=== PATIENT | female | born 1935 | race Caucasian/White ===

== ENCOUNTER 2017-01-05 11:09 | Outpatient (CLI) ==
--- NOTE | 2017-01-05 12:17 | CT ---
EXAM: CT head without contrast. HISTORY: Initial presentation for head trauma due to a fall. Right forehead hematoma. COMPARISON: None available. TECHNIQUE: Multiple axial images of the brain were obtained from the skull base through the vertex without intravenous contrast. FINDINGS: Right parietal approach ventriculoperitoneal shunt catheter tip is located near the pres[place] en of [place]. The lateral ventricles are dilated in proportion to the degree of cortical sulcal enla rgement. No acute intracranial hemorrhage or extraaxial collection identified. Encephalomalacia se en in the right basal ganglia. Periventricular and subcortical white matter low attenuation seen th roughout both cerebral hemispheres. No mass effect or midline shift identified. Basal cisterns wel l visualized. Atherosclerotic calcifications are present. Right frontal scalp hematoma noted. No calvarial fractures seen. Paranasal sinuses and mastoid air cells are clear. IMPRESSION: 1. Right frontal scalp hematoma without acute intracranial abnormality. 2. Chronic small vessel ischemic changes and atrophy. 3. Right parietal ventriculoperitoneal shunt catheter without hydrocephalous.
== END 2017-01-05 11:10 | disposition home or self-care (01) ==
LOC: RAD 11:09
PROVIDERS: ATTEND Emergency Medicine
DX: S00.83XA Contusion of other part of head, initial encounter (principal); W19.XXXA Unspecified fall, initial encounter

== ENCOUNTER 2017-07-21 08:53 | Outpatient (CLI) | END 2017-07-21 08:54 | disposition home or self-care (01) | LOC: NONPT 08:53 | PROVIDERS: ATTEND Emergency Medicine | DX: R05 Cough (principal); R50.9 Fever, unspecified | CPT/HCPCS: 87804 ==

== ENCOUNTER 2017-10-11 17:48 | Inpatient (IN) ==
[2017-10-11] MEDS ORDERED: TUSSIONEX PO STA (18:21)
--- NOTE | 2017-10-11 18:25 | ED.PDOC ---
General ED Provider: Dr. HOWARD KOWALSKI Chief Complaint: Cough Stated Complaint: COUGH, WEAKNESS, FLU LIKE SYMPTOMS Time Seen by Physician: 18:00 Mode of Arrival: Ambulance Information Source: Patient, EMT Exam Limitations: No limitations [facility] and Triage Documentation Reviewed and Agree: Yes Reviewed sepsis parameters & appropriate labs ordered?: Yes System Inflammatory Response Syndrome: Not Applicable Sepsis Protocol: For patient's 13 years and over: Temp is 96.8 and below OR 101 and greater Pulse >90 BPM Resp >20/minute Acutely Altered Mental Status Are patient's symptoms suggestive of a new infection, such as: -Pneumonia -Skin, Soft Tissue -Endocarditis -UTI -Bone, Joint Infection -Implantable Device -Acute Abdominal Infection -Wound Infection -Meningitis -Blood Stream Catheter Infection -Unknown System Inflammatory Response Syndrome: Not Applicable Respiratory Complaint Exam - Respiratory Complaint/Exam Onset/Duration: 7 DAYS WORSE TODAY Symptoms Are: Still present Timing: Intermittent Initial Severity: Moderate Current Severity: Moderate Location: Chest Character: Reports: Productive cough (YELLOW) Aggravating: Reports: URI Alleviating: Reports: None Associated Signs and Symptoms: Reports: URI, Nasal congestion Related History: Reports: Similar episode History of Healthcare-Acquired Pneumonia: No Related Surgical History: Reports: None Review of Systems - Review Of Systems Constitutional: Reports: Chills, Malaise, Weakness, Loss of appetite Eyes: Reports: No symptoms Ears, Nose, Mouth, Throat: Reports: No symptoms Respiratory: Reports: Cough, Short of air Cardiac: Reports: No symptoms GI: Reports: No symptoms : Reports: No symptoms Musculoskeletal: Reports: No symptoms Skin: Reports: No symptoms Neurological: Reports: No symptoms Endocrine: Reports: No symptoms Hematologic/Lymphatic: Reports: No symptoms All Other Systems: Reviewed and Negative Past Medical History - Past Medical History Previously Healthy: Yes Endocrine: Reports: None Cardiovascular: Reports: CAD, Hypertension, CHF Respiratory: Reports: None Hematological: Reports: None Gastrointestinal: Reports: GERD Genitourinary: Reports: CKD 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) Musculoskeletal: Reports: None Cancer: Reports: None Last Menstrual Period: na - Surgical History General Surgical History: Reports: Unknown - Family History Family History: Reports: Unknown - Social History Smoking Status: Former smoker Hx Substance Use: No Alcohol Screening: None Physical Exam - Physical Exam Appearance: Ill-appearing Ill-appearing: Mild Pain Distress: Mild Eyes: DOROTHY, EOMI, Conjunctiva clear ENT: Dry mucosa Respiratory: Breath sounds diminished, Rhonchi Cardiovascular: RRR, Pulses normal, No rub, No murmur GI/: Soft, Nontender, No masses, Bowel sounds normal, No Organomegaly Musculoskeletal: Normal strength, ROM intact, No edema, No calf tenderness Skin: Warm, Dry, Normal color Neurological: Sensation intact, Motor intact, Reflexes intact, Cranial nerves intact, Alert, Oriented Psychiatric: Affect appropriate, Mood appropriate Physician Notification - Case Discussed Physician Notified: PMD Time of Notification: 19:00 Admit To: Inpatient Critical Care Note - Critical Care Note Total Time (mins): 0 Course - Course Orders, Labs, Meds: Orders Category Date Time Status ADMIT PATIENT [facility]PAT[facility] ADMISSION 10/11/17 18: 21 Active EKG-(IP & OP ONLY) DAILY CARDIO 10/12/17 06:00 Ordered EKG-(IP & OP ONLY) DAILY CARDIO 10/13/17 06:00 Ordered EKG-(IP & OP ONLY) DAILY CARDIO 10/14/17 06:00 Ordered NEBULIZER TREATMENT Routine CARDIO 10/11/17 18:21 Ordered ACTIVITY .Complete BR CARE 10/11/17 18:20 Ordered BLOOD GLUCOSE MONITORING ACCUCHECK Q6H CARE 10/11/17 18:20 Ordered NPO REMINDER: IMAGING ONCE CARE 10/11/17 18:13 Active TELEMETRY MONITORING TELE CARE 10/11/17 18:22 Active VITAL SIGNS Q8HR CARE 10/11/17 18:20 Ordered REGULAR DIET DIETARY 10/11/17 Dinner Ordered ED IV/MEDIPORT/POWERPORT .ONCE EMERGENCY 10/11/17 18:12 Active BLOOD CULTURE Stat LAB 10/11/17 18:11 Ordered CBC W/ AUTO DIFF DAILY@0600 LAB 10/12/17 06:00 Ordered CBC W/ AUTO DIFF DAILY@0600 LAB 10/13/17 06:00 Ordered CBC W/ AUTO DIFF Stat LAB 10/11/17 18:11 Ordered COMPREHENSIVE METABOLIC PANEL DAILY@0600 LAB 10/12/17 06:00 Ordered COMPREHENSIVE METABOLIC PANEL DAILY@0600 LAB 10/13/17 06:00 Ordered COMPREHENSIVE METABOLIC PANEL Stat LAB 10/11/17 18:11 Ordered FLU A/B MOLECULAR Stat LAB 10/11/17 18:22 Uncollected PROCALCITONIN Stat LAB 10/11/17 Ordered RAPID STREP SCREEN [MOLECULAR GROUP A STREP] Stat LAB 10/11/17 18:22 Uncollected 0.9 % Sodium Chloride [Saline Flush] MEDS 10/11/17 18:12 Ordered 1 syr IVF PRN PRN Ceftriaxone Sodium [Rocephin] 1 gm MEDS 10/11/17 18:30 Ordered 0.9 % Sodium Chloride [Sodium Chloride] 50 ml IV DAILY Hydrocodone/Chlorphen Polis [Tussionex] MEDS 10/11/17 18:21 Stat 5 ml PO ONCE STA Ipratropium/Albuterol Neb [Duoneb] MEDS 10/12/17 00:00 Ordered 1 vial NEB RTQ6H Methylprednisolone Sod Succ/Pf [Solu-Medrol 40 mg] MEDS 10/11/17 18:30 Ordered 40 mg IVP Q12HR Sodium Chloride 0.9% [Sodium Chloride] 1,000 ml MEDS 10/11/17 18:30 Ordered IV 75 mls/hr CT CHEST W/O CONTRAST Stat RADS 10/11/17 18:11 Ordered Medications Generic Name Dose Route Start Last Admin Trade Name Freq PRN Reason Stop Dose Admin Albuterol/Ipratropium 1 vial 10/12/17 00:00 Duoneb NEB RTQ6H RHODA Ceftriaxone Sodium 1 gm/ 50 mls @ 75 mls/hr 10/11/17 18:30 Sodium Chloride IV DAILY RHODA Sodium Chloride 1,000 mls @ 75 mls/hr 10/11/17 18:30 Sodium Chloride IV .[id number] RHODA Methylprednisolone Sodium Succinate 40 mg 10/11/17 18:30 Solu-Medrol 40 Mg IVP Q12HR RHODA Sodium Chloride 1 syr 10/11/17 18:12 Saline Flush IVF PRN PRN To flush IV Discontinued Medications Generic Name Dose Route Start Last Admin Trade Name Freq PRN Reason Stop Dose Admin Chlorphenir/Hydrocodone Polistirex 5 ml 10/11/17 18:21 Tussionex PO 10/11/17 18:22 ONCE STA Vital Signs: Temp Pulse Resp BP Pulse Ox 10/11/17 17:48 97.5 F L 80 20 174/70 H 97 Departure - Departure Time of Disposition: 19:00 Disposition: ADMITTED INPATIENT Discharge Problem: Cough, Weakness COPD (chronic obstructive pulmonary disease) Qualifiers: COPD type: unspecified COPD Qualified Code(s): J44.9 - Chronic obstructive pulmonary disease, unspecified Instructions: Dyspnea (ED), Shortness of Breath (ED) Condition: Good Pt referred to PMD for follow-up: Yes (ADMITT) IPMP verified?: No Additional Instructions: Please call your Family Physician as soon as possible to schedule a follow-up appointment. Allergies/Adverse Reactions: Allergies lactose Adverse Reaction (Verified 10/11/17 17:57) Penicillins Adverse Reaction (Verified 10/11/17 17:57) warfarin [From Coumadin] Adverse Reaction (Verified 10/11/17 17:57) Disposition Discussed With: Patient
[2017-10-11] MEDS: SODIUM CHLORIDE 1,000 ML IV SCH (18:44)
--- NOTE | 2017-10-11 19:19 | CT ---
Exam: CT scan of the thorax without contrast. Date: 10/11/2017. Comparison: None. HISTORY: Cough. TECHNIQUE: Helical scan of the thorax was performed without contrast. FINDINGS: A pacemaker is implanted in the soft tissues over the left thorax. A substernal goiter is present. The axillary regions are normal. There are multiple subcentimeter lymph nodes at 1.2 cm p recarinal lymph node with granulomatous calcifications present. The caliber of the thoracic aorta an d cardiac chambers are normal. There is a moderate to large hiatal hernia with approximately half th e stomach in the lower thorax. The spleen and upper liver have a uniform attenuation. A cholecystec joshua is noted. The pancreas and adrenal glands are normal. The kidneys are normal. Multilevel degenerative changes are present in the thoracic spine. No lytic or blastic lesions or di splaced rib fractures are seen. Evaluation at lung window settings demonstrates granulomatous calcifications. No suspicious pulmonary nodules are seen. There is peribronchial thickening with thickened septa in the lingular segment. No focal consolidation is present. No pleural fluid is seen. Tracheobronchial tree is present. Impression: There is peribronchial thickening with thickened septa in the lingular segment which may represent bronchitis with possible developing pneumonia. Old granulomatous disease. Cardiomegaly with vent trachea pacemaker. Moderate to large hiatal hernia, with approximately half the stomach in the lower thorax. Substernal goiter. Cholecystectomy.
[2017-10-11] MEDS ORDERED: SOLU-MEDROL 40 MG IVP STA (19:21)
[2017-10-11] MEDS ORDERED: ROCEPHIN 1 GM in SODIUM CHLORIDE 50 ML IV STA (19:22)
[2017-10-11] MEDS ORDERED: ROCEPHIN ONE (19:26)
[2017-10-11] MEDS: ROCEPHIN 1 GM in SODIUM CHLORIDE 50 ML IV SCH (20:38)
[2017-10-11] MEDS: SOLU-MEDROL 40 MG IVP SCH ×2 (20:38→22:19)
[2017-10-11 21:07] VITALS: BMI 32.4
[2017-10-11] MEDS ORDERED: TYLENOL PO SCH (22:30)
[2017-10-11] MEDS ORDERED: DULCOLAX RC PRN (22:32)
[2017-10-11] MEDS ORDERED: CAFFEINE PO PRN ×2 (22:32→22:42)
[2017-10-11] MEDS ORDERED: BUTALB PO PRN (22:32)
[2017-10-11] MEDS ORDERED: ACETAMINOPHEN PO PRN (22:32)
[2017-10-11] MEDS ORDERED: SODIUM PHOSPHATE MONO DIBASIC RC PRN (22:42)
[2017-10-11] MEDS ORDERED: BUTALBITAL PO PRN (22:42)
[2017-10-11] MEDS ORDERED: [UNRECOGNIZED DRUG - OTHER] PO PRN (22:42)
[2017-10-11] MEDS ORDERED: NON-FORMULARY MEDICATION (Loperamide Hcl [Loperamide] 2 MG) PO PRN (22:42)
[2017-10-11] MEDS ORDERED: ASPIRIN PO PRN (22:42)
[2017-10-11] MEDS ORDERED: ANTIVERT PO PRN (22:42)
[2017-10-12] MEDS: DUONEB NEB SCH ×5 (00:05→22:28)
[2017-10-12] MEDS ORDERED: TYLENOL PO PRN (00:48)
[2017-10-12] MEDS: CARAFATE PO SCH ×4 (05:33→21:03)
[2017-10-12] MEDS ORDERED: IMODIUM PO PRN (07:53)
[2017-10-12] MEDS ORDERED: NON-FORMULARY MEDICATION (Hydralazine Hcl [Hydralazine Hcl] 25 MG) PO SCH (09:00)
[2017-10-12] MEDS ORDERED: SOTALOL HCL 120 MG PO SCH (09:00)
[2017-10-12] MEDS ORDERED: NON-FORMULARY MEDICATION (Bumetanide [Bumetanide] 2 MG) PO SCH (09:00)
[2017-10-12] MEDS ORDERED: NON-FORMULARY MEDICATION (Citalopram Hydrobromide [Celexa] 10 MG) PO SCH (09:00)
[2017-10-12] MEDS ORDERED: DILTIAZEM HCL 180 MG PO SCH (09:00)
[2017-10-12] MEDS ORDERED: NON-FORMULARY MEDICATION (Cetirizine Hcl [Zyrtec] 10 MG) PO SCH (09:00)
[2017-10-12] MEDS ORDERED: NON-FORMULARY MEDICATION (Ferrous Sulfate [Feosol] 325 MG) PO SCH (09:00)
[2017-10-12] MEDS: ROCEPHIN 1 GM in SODIUM CHLORIDE 50 ML IV SCH (09:19)
[2017-10-12] MEDS: SORBITRATE PO SCH ×2 (09:19→15:47)
[2017-10-12] MEDS: SOLU-MEDROL 40 MG IVP SCH ×2 (09:19→21:03)
[2017-10-12] MEDS: ASPIRIN CHEWABLE PO SCH (09:19)
[2017-10-12] MEDS: BUMEX PO SCH (09:19)
[2017-10-12] MEDS: BENTYL PO SCH (09:19)
[2017-10-12] MEDS: LANOXIN PO SCH (09:20)
[2017-10-12] MEDS: CARDIZEM CD PO SCH (09:20)
[2017-10-12] MEDS: BETAPACE PO SCH ×2 (09:20→21:03)
[2017-10-12] MEDS: SODIUM CHLORIDE 1,000 ML IV SCH ×2 (09:23→17:02)
[2017-10-12] MEDS: ZYRTEC PO SCH (09:23)
[2017-10-12] MEDS: FERROUS SULFATE PO SCH (09:24)
[2017-10-12] MEDS: COZAAR PO SCH (09:24)
[2017-10-12] MEDS: APRESOLINE PO SCH ×2 (09:24→21:03)
[2017-10-12] MEDS: CELEXA PO SCH (09:24)
[2017-10-12] MEDS: CATAPRES PO SCH ×2 (09:24→21:03)
[2017-10-12] MEDS: ZYLOPRIM PO SCH ×2 (09:25→21:03)
[2017-10-12] MEDS: MILK OF MAGNESIA PO SCH (11:19)
--- NOTE | 2017-10-12 16:18 | RS.PTINEVL ---
Subjective - Patient information Date of Evaluation: 10/12/17 Date of Arrival on Unit: 10/11/17 Admitted From:: Intermediate Diagnosis: COPD, weakness Usual Living Arrangement: Intermediate Home Environment: Level/No stairs Medical History: Hypertension, COPD, CHF Medical History Comments:: GERD, hydrocephalus Surgical History Comments:: pacemaker Medications: see chart Subjective Information/ Patient Comments:: pt states that she walks with therapy at the skilled nursing. pt states that she has been walking with assist of 1 with rwx. - Level of function Current Level of Function: Partially Dependent Current Equipment Used at Home: Rolling walker, shower chair, bedside commode Interventions - Objective Patient Orientation: Person, Place Current Interventions: IV's, Oxygen, Telemetry Observation: pt has hearing aide in R ear Range of Motion - ROM Right Upper Extremity AROM: WFL's Left Upper Extremity AROM: WFL's Right Lower Extremity AROM: WFL's Left Lower Extremity AROM: WFL's Muscle Strength - Muscle Strength Right Upper Extremity Strength: Mild Weakness (shld flex 4-/5, elbow flex/ext 4/ 5,) Left Upper Extremity Strength: Mild Weakness (shld flex 4-/5, elbow flex/ext 4/5 ,) Right Lower Extremity Strength: Mild Weakness (hip flex 4-/5, knee flex/ext 4/5 , ankle Df/PF 4/5) Left Lower Extremity Strength: Mild Weakness (hip flex 4-/5, knee flex/ext 4/5, ankle Df/PF 4/5) Sensation - Sensation Right Upper Extremity Sensation: Intact/Normal Left Upper Extremity Sensation: Intact/Normal Right Lower Extremity Sensation: Intact/Normal Left Lower Extremity Sensation: Intact/Normal Palpation Palpation Findings: None/Normal Balance - Sitting Balance and Reactions Static Sitting Balance: Good Dynamic Sitting Balance: Fair Sitting Equilibrium Reactions: Delayed Left, Delayed Right Sitting Protective Reactions: Delayed Left, Delayed Right - Standing Balance and Reactions Static Standing Balance: Poor Dynamic Standing Balance: Poor Standing Equilibrium Reactions: Delayed Left, Delayed Right Standing Protective Reactions: Delayed Left, Delayed Right Functional Mobility - Bed Mobility Rolling R/L: Min Assist Scooting: Mod Assist, 2 person assist Supine to Sit: Min Assist, 1 person assist Sit to Supine: Min Assist, Mod Assist, 1 person assist - Transfers Sit to Stand: Min Assist, 1 person assist Stand to Sit: Min Assist, 1 person assist - Safety Awareness Safety Awareness: Fair ANETTE INDEX SCORE: n/a Ambulation - Ambulation Assistive Device Used: Rolling Walker Orthotic/Prosthetic Device: No Distance: 80ft Assistance needed with Ambulation: Min Assist, 1 person assist Gait Deviations: Forward posture, Short stride, Deviates from path Ambulation Comments: pt amb with flexed posture, with decreased step length, as well requires verbal cues to keep walker close. Factors Affecting Ambulation: Decreased Balance, Weakness, Decreased Coordination, Dizziness, Decreased Safety, Cognitive Status, Limited Endurance Treatment time - Time with patient Total treatment time: 30 Patient Education - Education Patient Education: Activity Modification, Education of Plan of Care Teaching Recipient: Patient Teaching Methods: Discussion (discussion with patient regarding POC.) Assessment - Assessment Problem List:: Decreased level of function, Requires training/education, Decreased safety/Risk of falls, Weakness, Cognitive status limits abilities Rehab Potential: Good Further Therapy Indicated?: Yes Evaluation Complexity: HISTORY: Medium (COPD, age, CHF, HTN, CAD), EXAM OF BODY SYSTEMS: Medium (strength, posture, balance, gait ), CLINICAL PRESENTATION: Medium (evolving), CLINICAL DECISION MAKING: Medium Short Term Goals GOAL #1: pt demonstrate rolling and scooting up in bed with verbal cues only Goal to be met by: 10/15/17 GOAL #2: pt transfer sup to/from sit to/from stand CGA Goal to be met by: 10/15/17 GOAL #3: pt amb with rwx 100ft with CGA with no LOB Goal to be met by: 10/15/17 GOAL #4: pt demonstrate improved strength BLE 4 to 4+/5 Goal to be met by: 10/15/17 Senior Care Goals GOAL #1: pt transfer sup to/from sit to/from stand SBA Goal to be met by: 10/18/17 GOAL #2: pt amb 150ft with rwx with SBA/CGA Goal to be met by: 10/18/17 GOAL #3: pt demonstrate improved dyn stand balance as noted by no LOB with amb Goal to be met by: 10/18/17 Plan Plan of Care: Therapeutic EX, Therapeutic Activity Other:: gait trainin Frequency of Treatment: 1-2 X day, as tolerated Duration of Treatment: 6 days Anticipated Discharge Destination: [facility] Has the Physician been added for Co-signature?: Yes
[2017-10-12] MEDS: XALATAN OP SCH (22:52)
[2017-10-13] MEDS: SODIUM CHLORIDE 1,000 ML IV SCH (03:51)
[2017-10-13] MEDS: DUONEB NEB SCH ×4 (04:55→23:10)
[2017-10-13] MEDS: CARAFATE PO SCH ×4 (05:53→20:57)
[2017-10-13] MEDS ORDERED: CEPACOL SORE THROAT LOZENGE MUCOUSMEMB PRN (08:36)
[2017-10-13] MEDS: SORBITRATE PO SCH ×2 (08:53→15:36)
[2017-10-13] MEDS: ASPIRIN CHEWABLE PO SCH (08:53)
[2017-10-13] MEDS: BUMEX PO SCH (08:53)
[2017-10-13] MEDS: CATAPRES PO SCH ×2 (08:53→20:57)
[2017-10-13] MEDS: ROCEPHIN 1 GM in SODIUM CHLORIDE 50 ML IV SCH (08:53)
[2017-10-13] MEDS: MILK OF MAGNESIA PO SCH (08:53)
[2017-10-13] MEDS: BENTYL PO SCH (08:53)
[2017-10-13] MEDS: CELEXA PO SCH (08:54)
[2017-10-13] MEDS: LANOXIN PO SCH (08:54)
[2017-10-13] MEDS: CARDIZEM CD PO SCH (08:54)
[2017-10-13] MEDS: FERROUS SULFATE PO SCH (08:55)
[2017-10-13] MEDS: BETAPACE PO SCH ×2 (08:55→20:57)
[2017-10-13] MEDS: ZYRTEC PO SCH (08:55)
[2017-10-13] MEDS: APRESOLINE PO SCH ×2 (08:55→20:55)
[2017-10-13] MEDS: SOLU-MEDROL 40 MG IVP SCH ×2 (08:55→20:34)
[2017-10-13] MEDS: COZAAR PO SCH (08:56)
[2017-10-13] MEDS: ZYLOPRIM PO SCH ×2 (08:56→20:56)
[2017-10-13] MEDS: TUSSIONEX PO PRN ×2 (09:00→20:55)
--- NOTE | 2017-10-13 13:23 | HP ---
DATE OF SERVICE: 10/11/17 CHIEF COMPLAINT: Cough and shortness of breath. HISTORY OF PRESENT ILLNESS: This is an 82 year old female who is a group home resident been coughing, congested and getting yellow/green phlegm. Been weak and tired and not by herself. The patient was seen by Dr. Lafleur in the emergency room. The patient has a history of hypertension, CHF and kidney problems. WBC was normal. Serology negative. CT chest showed developing pneumonia. At that time the patient was admitted to the hospital for IV antibiotics, breathing treatments and steroids. REVIEW OF SYSTEMS: CONSTITUTIONAL: No fever, no chills. Weakness and tiredness. HEENT: Normal. ENDOCRINE: No weight gain; no weight loss. CVS: No chest pain. No PND, no orthopnea. Chortness of breath. No PND, no orthopnea. RESPIRATORY: Cough, Congestion getting yellow/green phlegm. No hemoptysis. GI: No nausea, no vomiting. No abdominal pain. No melena. : No hematuria. No polyuria. MUSCULOSKELETAL: No joint swelling. Body aches and back pain. PSYCHIATRIC: Not anxious. No depression. No suicidal thoughts. No homicidal thoughts. SKIN: Intact, no open lesions. PAST MEDICAL HISTORY: CVA History of brain shunt Coronary artery disease CHF Diarrhea Osteoarthritis DJD spine Depression PAST SURGICAL HISTORY: History of brain shunt Bilateral knee and hip replacement PERSONAL HISTORY: The patient lives at the group home and partial dependant upon the the ADL's. Family history is significant for the high blood pressure. MEDICATIONS: Antivert Loperamide Fleets enema Dulcolax Acetaminophen Carafate Sotalol Sorbitrate Hydralazine Zyloprim Ferrous sulfate Diltiazem Digoxin Cozaar Bentyl Celexa Zyrtec Bumetanide Aspirin Fiorinal Clonidine Xalatan Magnesium Hydroxide ALLERGIES: Lactulose Penicillin Coumadin PHYSICAL EXAMINATION: V/S: blood pressure 174/70, respiratory rate 20, heart rate 80, temperature 97.5 with saturation is 97%. GENERAL: Sick looking lady laying in the bed, not in any distress. HEENT: Atraumatic, normocephalic. No scleral icterus. Mucosa dry. NECK: Supple. No JVD, no bruit. No lymphadenopathy. No thyromegaly. HEART: S1, S2 normal. No murmur. No cyanosis or clubbing. No ascites. LUNGS: Decreased and basilar crackles. Mild expiratory wheezing. No rales or rhonchi. ABDOMEN: Soft, nontender. Bowel sounds are active. No CVA tenderness. No rigidity or guarding. EXTREMITIES: No pedal edema. No cyanosis or clubbing MUSCULOSKELETAL: Normal joints, no swelling. NEUROLOGIC: The patient is awake and alert. SKIN: Intact; no open lesions. Dry. LYMPHATIC: No lymph nodes palpable. LABS: Sodium 137, potassium 4.8, chloride 100, bicarb 25, BUN 22, creatinine 1.04, glucose 97, WBC 8.53, hgb 11.4, hct 34.7, plt count 226. ASSESSMENT: 1. Bibasilar pneumonia. 2. COPD exacerbation secondary to the pneumonia 3. CAD 4. Hypertension 5. Dyslipidemia 6. Permanent pacemaker 7. Osteoarthritis 8. DJD spine 9. History of brain shunt 10.CVA 11.Congestive heart failure PLAN: 1. Admit the patient to regular floor 2. CBC and CMP today and daily 3. Cardiac enzymes and Troponin 4. IV fluids 5. Continue Home medications 6. Rocephin 1 gram daily 7. Solu-Medrol 40mg Q 12 hours 8. DUO NEBS TIME SPENT: MORE THAN 70 minutes for the admission. MTDD
--- NOTE | 2017-10-13 13:29 | PN ---
DATE OF SERVICE: 10/12/17 SUBJECTIVE: The patient was admitted with pneumonia, still coughing and congested. REVIEW OF SYSTEMS: CONSTITUTIONAL: No fever, no chills. Weak and tired. HEENT: Normal. ENDOCRINE: No weight gain, no weight loss. CVS: No angina symptoms. No CHF symptoms. No palpitations. No atypical chest pain for CAD. No shortness of breath. No PND, no orthopnea. RESPIRATORY: No cough, no hemoptysis. GI: No nausea, no vomiting. No abdominal pain. : No hematuria. No polyuria. MUSCULOSKELETAL: No joint swelling. PSYCHIATRIC: Not anxious. No depression. No suicidal thoughts. No homicidal thoughts. SKIN: Intact. No rash. PHYSICAL EXAMINATION: V/S: Blood pressure 172/73, respiratory rate 20, heart rate 61, temperature 97.5 with saturation 96 on room air. HEENT: Normocephalic, atraumatic. Mucosa dry. Pallor positive. No icterus. NECK: Supple. No JVD, no carotid bruit. No lymphadenopathy. LUNGS: Basilar crackles. Clear to auscultation. No rales or rhonchi. HEART: S1, S2 normal. No S3. No murmur, gallop or regurgitation. ABDOMEN: Soft, nontender. Bowel sounds active. No rigidity. No rebound or guarding. No CVA tenderness. EXTREMITIES: No pedal edema. No clubbing or cyanosis MUSCULOSKELETAL: No joint swelling. NEUROLOGIC: Awake, alert, oriented times three. No focal deficit. LYMPHATIC: No lymph nodes palpable. SKIN: Intact. LABS: WBC 8.90, hgb 12.1, hct 36.5, plt count 224, sodium 136, potassium 4.8, chloride 103, bicarb 22, BUN 19, creatinine 0.96, glucose 151. ASSESSMENT: 1. Bibasilar pneumonia 2. Coronary artery disease 3. Congestive heart failure 4. Permanent pacemaker 5. Hypertension 6. History of brain shunt 7. CVA PLAN: 1. Rocephin 1 gram daily 2. Decreased IV Fluids to 40ml per hour 3. DUO NEBS. TIME SPENT: More than 35 minutes MTDD
--- NOTE | 2017-10-13 15:40 | RS.OTINEVL ---
Subjective - Patient information Date of Evaluation: 10/13/17 Date of Arrival on Unit: 10/12/17 Admitted From:: Emergency Dept Usual Living Arrangement: Retirement Living Arrangement Comments: Pt lives at [facility]. Home Environment: House, Stairs (many), Rail Medical History: CVA/TIA, Dementia Medical History Comments:: Anemia, Alzheimer's, UTI, DDD, OA, Surgical History: Hysterectomy Surgical History Comments:: CTR, neck surgery, hysterectomy, , Subjective Information/ Patient Comments:: "I am not right in my head." "I forgot what I was going to say." "I can't get the words out." - Level of function Prior to this admission, the patient could do the following:: Partially Dependent Ambulation Abilities prior to this admission: Pt's son reports that his mother has days she is fine and can do for herself and then there are days she cannot do much at all for herself. Today, he reports he had to help her get to the [facility]. She already had wet her brief. Current Level of Function: Partially Dependent Current Equipment Used at Home: Rolling walker, shower chair, bedside commode Pain Assessment - Pain Pain Score: 5 Side: bilateral Pain Location Body Site: Neck Pain Aggravating Factors: ADL's, Standing, Sitting Interventions - Objective Current Interventions: IV's, Telemetry Observation: Pt was sitting on the edge of the bed. Pt is not able to sit still she is swaying. She reports she is a little dizzy at this time. Pt is having moderate amount of trouble getting her words out. Pt reports she is not right in the head. Pt will lose her thought when talking and have to stop to try to remember what she is saying. Interventions - ROM Right Upper Extremity AROM: Slight limitation Left Upper Extremity AROM: Slight limitation - Strength Right Upper Extremity Strength: Mild Weakness Left Upper Extremity Strength: Mild Weakness - Sensation Right Upper Extremity Sensation: Intact/Normal Left Upper Extremity Sensation: Intact/Normal Balance - Sitting Balance Static Sitting Balance: Poor Dynamic Sitting Balance: Poor - Standing Balance Static Standing Balance: Poor Dynamic Standing Balance: Poor ADL Skills - Self Feeding Self Feeding: Independent - Grooming Grooming: Independent - Bathing Bathing UE: Min Assist Bathing LE: Min Assist - Dressing Dressing UE: Min Assist Dressing LE: Min Assist - Toilet Management Toileting Management: Mod Assist Functional Mobility - Bed Mobility Rolling R/L: Independent Scooting: Supervision Supine to Sit: Supervision Sit to Supine: Supervision - Transfers Sit to Stand: Min Assist Stand to Sit: Min Assist Stand Pivot Transfers: Min Assist - Ambulation Weight Bearing Status: FWB Assistive Device Used: Rolling Walker Assistance needed with Ambulation: Min Assist - Safety Awareness Safety Awareness: Fair ANETTE INDEX SCORE: . Additional Treatment Performed - Time with patient Total treatment time: 20 Activities Patient Interests:: Watching Television, Visiting/Socializing Patient Education Teaching Recipient: Patient Teaching Methods: Discussion Assessment Problem List:: Decreased level of function, Decreased safety/Risk of falls, Weakness Rehab Potential: Good Further Therapy Indicated?: Yes Evaluation Complexity: HISTORY: Medium, EXAM OF BODY SYSTEMS: Medium, CLINICAL DECISION MAKING: Medium Short Term Goals - Goals GOAL 1: Pt to increase her safety of functional transfers with RW to CGA Goal to be met by: 10/20/17 GOAL 2: Pt to increase activity tolerance to 15 minutes to increase Goal to be met by: 10/20/17 GOAL 3: Pt to increase dynamic standing balance to Fair Goal to be met by: 10/20/17 L D Rn Goals GOAL 1: Pt to increase her safety of functional transfers with RW to Mod-I Goal to be met by: 10/26/17 GOAL 2: Pt to increase dynamic standing balance to Fair+ Goal to be met by: 10/26/17 GOAL 3: Pt to increase activity tolerance to 20 minutes to increase Goal to be met by: 10/26/17 Plan Plan of Care: Therapeutic EX, Neuromuscular Re-Educ, Therapeutic Activity, Self- Care/Home Management Frequency of Treatment: 1-2 X day, as tolerated Duration of Treatment: 2 Weeks Anticipated Discharge Destination: Home Has the Physician been added for Co-signature?: Yes
[2017-10-13] MEDS: COLACE PO PRN (17:29)
[2017-10-13] MEDS: XALATAN OP SCH (20:58)
[2017-10-14] MEDS: SODIUM CHLORIDE 1,000 ML IV SCH ×2 (04:46→04:47)
[2017-10-14] MEDS: CARAFATE PO SCH ×4 (05:47→20:08)
[2017-10-14] MEDS: DUONEB NEB SCH ×4 (05:57→22:19)
--- NOTE | 2017-10-14 07:52 | PN ---
DATE OF SERVICE: 10/13/17 SUBJECTIVE: The patient was admitted with pneumonia and dehydration. The patient still been coughing and congestion, complains about she lost her voice. Up and about walking, can walk with the help. REVIEW OF SYSTEMS: CONSTITUTIONAL: No fever, no chills. HEENT: Normal. ENDOCRINE: No weight gain, no weight loss. CVS: No angina symptoms. No CHF symptoms. No palpitations. No atypical chest pain for CAD. No shortness of breath. No PND, no orthopnea. RESPIRATORY: No cough, no hemoptysis. GI: No nausea, no vomiting. No abdominal pain. : No hematuria. No polyuria. MUSCULOSKELETAL: No joint swelling. PSYCHIATRIC: Not anxious. No depression. No suicidal thoughts. No homicidal thoughts. SKIN: Intact. No rash. PHYSICAL EXAMINATION: V/S: Blood pressure 86/33, respiratory rate 20, heart rate 60 and temperature 97.4 and saturation 96% on room air. HEENT: Normocephalic, atraumatic. Mucosa dry. Pallor positive. No icterus. Hoarseness in the voice was noticed. NECK: Supple. No JVD, no carotid bruit. No lymphadenopathy. LUNGS: Decreased and basilar crackles. Clear to auscultation. No rales or rhonchi. HEART: S1, S2 normal. No S3. No murmur, gallop or regurgitation. ABDOMEN: Soft, nontender. Bowel sounds active. No rigidity. No rebound or guarding. No CVA tenderness. EXTREMITIES: No pedal edema. No clubbing or cyanosis MUSCULOSKELETAL: No joint swelling. NEUROLOGIC: Awake, alert, oriented times three. No focal deficit. LYMPHATIC: No lymph nodes palpable. SKIN: Intact. LABS: WBC 10.32, hgb 10.4, hct 32.0, plt count 233, sodium 135, potassium 5.4, chloride 102, bicarb 26, BUN 22, creatinine 0.85 and glucose 144. ASSESSMENT: 1. Community acquired pneumonia, bibasilar 2. Change in voice and hoarseness with Laryngitis 3. Hyperkalemia 4. Hypotension, mostly likely from dehydration will recheck them 5. History of Coronary artery disease 6. Permanent pacemaker 7. CVA 8. History of brain shunt 9. Bilateral knee replacement PLAN: 1. Continue Rocephin 1 gram daily 2. Digoxin 3. DUO NEBS 4. Isosorbide PRN 5. Solu-Medrol 40 Q 12 hours 6. IV fluids at 40ml per hour 7. Daily I&O's TIME SPENT: More than 35 minutes MTDD
[2017-10-14] MEDS: ROCEPHIN 1 GM in SODIUM CHLORIDE 50 ML IV SCH (09:02)
[2017-10-14] MEDS: MILK OF MAGNESIA PO SCH (09:04)
[2017-10-14] MEDS: SOLU-MEDROL 40 MG IVP SCH ×2 (09:05→20:09)
[2017-10-14] MEDS: APRESOLINE PO SCH ×2 (09:06→20:08)
[2017-10-14] MEDS: ASPIRIN CHEWABLE PO SCH (09:07)
[2017-10-14] MEDS: BENTYL PO SCH (09:07)
[2017-10-14] MEDS: BETAPACE PO SCH ×2 (09:08→20:09)
[2017-10-14] MEDS: BUMEX PO SCH (09:09)
[2017-10-14] MEDS: CATAPRES PO SCH ×2 (09:09→20:08)
[2017-10-14] MEDS: CARDIZEM CD PO SCH (09:09)
[2017-10-14] MEDS: CELEXA PO SCH (09:09)
[2017-10-14] MEDS: COZAAR PO SCH (09:10)
[2017-10-14] MEDS: FERROUS SULFATE PO SCH (09:11)
[2017-10-14] MEDS: SORBITRATE PO SCH ×2 (09:11→14:21)
[2017-10-14] MEDS: LANOXIN PO SCH (09:11)
[2017-10-14] MEDS: ZYRTEC PO SCH (09:12)
[2017-10-14] MEDS: ZYLOPRIM PO SCH ×2 (09:12→20:08)
[2017-10-14] MEDS: COLACE PO PRN (12:30)
[2017-10-14] MEDS: TUSSIONEX PO PRN (19:55)
[2017-10-14] MEDS: KEFLEX PO SCH (20:08)
[2017-10-14] MEDS: XALATAN OP SCH (20:09)
[2017-10-15] MEDS: SODIUM CHLORIDE 1,000 ML IV SCH (04:01)
[2017-10-15] MEDS: DUONEB NEB SCH ×3 (05:02→18:37)
[2017-10-15] MEDS: CARAFATE PO SCH ×3 (05:35→17:26)
[2017-10-15] MEDS: BETAPACE PO SCH (09:28)
[2017-10-15] MEDS: BUMEX PO SCH (09:28)
[2017-10-15] MEDS: MILK OF MAGNESIA PO SCH (09:28)
[2017-10-15] MEDS: ASPIRIN CHEWABLE PO SCH (09:28)
[2017-10-15] MEDS: BENTYL PO SCH (09:28)
[2017-10-15] MEDS: CARDIZEM CD PO SCH (09:30)
[2017-10-15] MEDS: COZAAR PO SCH (09:30)
[2017-10-15] MEDS: FERROUS SULFATE PO SCH (09:30)
[2017-10-15] MEDS: ZYLOPRIM PO SCH (09:30)
[2017-10-15] MEDS: KEFLEX PO SCH (09:31)
[2017-10-15] MEDS: APRESOLINE PO SCH (09:31)
[2017-10-15] MEDS: ZYRTEC PO SCH (09:32)
[2017-10-15] MEDS: CATAPRES PO SCH (09:32)
[2017-10-15] MEDS: CELEXA PO SCH (09:32)
[2017-10-15] MEDS: LANOXIN PO SCH (09:32)
[2017-10-15] MEDS: PREDNISONE PO SCH ×2 (09:33→17:26)
[2017-10-15] MEDS: SORBITRATE PO SCH ×2 (09:33→15:25)
--- NOTE | 2017-10-15 09:45 | DI ---
EXAM: Single-view chest. The HISTORY: Cough COMPARISON: Two-view chest 07/14/2010, with a CT scan thorax 10/11/2017 FINDINGS: The heart is enlarged. Atherosclerotic changes are seen involving the aortic arch. There is a moderately large hiatal hernia. Dual lead left-sided pacemaker. There is stable elevation of le ft and diaphragm without focal consolidation. There is right-sided ACTIVE DIRECTORY SYSTEMS ADMINISTRATOR shunt IMPRESSION: Stable cardiomegaly. Large hiatal hernia. Stable elevation left hemidiaphragm without focal consolidation
[2017-10-15] MEDS: TUSSIONEX PO PRN (10:37)
[2017-10-15 15:29] VITALS: BP 148/70; TEMP 97.3
--- NOTE | 2017-10-17 22:32 | PCM.HOSP ---
- Initial Hospital Care [id number] 70 Minutes Bedside ([id number]): 10/11 - Subsequent Care [id number] 35 Minutes per Day ([id number]): 10/12. 10/13. 10/14 - Hospital Discharge [id number] More than 30 Minutes ([id number]): 10/15
--- NOTE | 2017-10-26 09:01 | PN ---
DATE OF SERVICE: 10/14/17 SUBJECTIVE: The patient was admitted with pneumonia. She has upper respiratory infection and complaining of the burning with urination. Urine is negative. Hoarseness of the voice is still present. No fever, chills, PND, orthopnea. REVIEW OF SYSTEMS: CONSTITUTIONAL: No fever, no chills. HEENT: Normal, except for hoarseness. ENDOCRINE: No weight gain, no weight loss. CVS: No angina symptoms. No CHF symptoms. No palpitations. No atypical chest pain for CAD. No shortness of breath. No PND, no orthopnea. RESPIRATORY: No cough, no hemoptysis. GI: No nausea, no vomiting. No abdominal pain. : No hematuria. No polyuria. Burning with urination. MUSCULOSKELETAL: No joint swelling. PSYCHIATRIC: Not anxious. No depression. No suicidal thoughts. No homicidal thoughts. SKIN: Intact. No rash. PHYSICAL EXAMINATION: V/S: Blood pressure 90/48, respiratory rate 12, heart rate 59, temperature 97.6 , saturation 97. HEENT: Normocephalic, atraumatic. Mucosa dry. Pallor positive. NECK: Supple. No JVD, no carotid bruit. No lymphadenopathy. LUNGS: Decreased and clear. No rales or rhonchi. HEART: S1, S2 normal. No S3. No murmur, gallop or regurgitation. ABDOMEN: Soft, nontender. Bowel sounds active. No rigidity. No rebound or guarding. No CVA tenderness. EXTREMITIES: No pedal edema. No clubbing or cyanosis MUSCULOSKELETAL: No joint swelling. NEUROLOGIC: Awake, alert, oriented times three. No focal deficit. LYMPHATIC: No lymph nodes palpable. SKIN: Intact. LABS: White count 8.16, hemoglobin 11.0, hematocrit 33.9, platelet count 227, sodium 136, potassium 5.1, chloride 102, bicarb 23, BUN 22, creatinine 0.83, glucose 147. ASSESSMENT: 1. COMMUNITY ACQUIRED BIBASILAR PNEUMONIA 2. LARYNGITIS 3. HYPERKALEMIA, WHICH IS BETTER 4. HYPERTENSION 5. ATRIAL FIBRILLATION 6. CORONARY ARTERY DISEASE 7. HISTORY OF BRAIN SHUNT PLAN: 1. Continue IV fluids. 2. Solu-Medrol 40 mg every 8 hours. 3. Keflex twice a day. 4. Daily I & O's. TIME SPENT: More than 25 minutes MTDD
--- NOTE | 2018-01-05 11:27 | DS ---
DATE OF SERVICE: 10/15/17 FINAL DIAGNOSIS: 1. PNEUMONIA, FACILITY ACQUIRED 2. HIATAL HERNIA 3. WEAKNESS 4. CVA 5. HYDROCEPHALUS WITH A SHUNT 6. HEADACHES 7. CAD 8. STATUS POST PERMANENT PACEMAKER 9. STATUS POST BILATERAL KNEE REPLACEMENT 10. HIP REPLACEMENT 11. DEPRESSION DISCHARGE INSTRUCTIONS: 1. Discharge patient back to the correction. 2. Followup on correction rounds within one week with Dr. Hayes. 3. CBC, CMP in one week. 4. Physical and occupational therapy evaluation. 5. Vital signs daily for one week. 6. Oxygen 2L. MEDICATIONS AT DISCHARGE: Tylenol Allopurinol Aspirin Ducolax Bumex Fiorinal Zyrtec Celexa Catapres Bentyl Digoxin Diltiazem Feosol Hydralazine Isosorbide Xalatan Loperamide Cozaar Milk of Magnesia Antivert Multivitamin Betapace Carafate NEW PRESCRIPTIONS: Keflex 500 mg twice a day for five days Prednisone 10 mg twice a day for five days Robitussin Cough Syrup take one teaspoon q.i.d. p.r.n. cough May have some Cepacol Duonebs t.i.d. DIET INSTRUCTIONS: Regular, mechanical soft ACTIVITY: Up to dining room for meals DISEASE SPECIFIC EDUCATION: COPD and pneumonia vaccination discussed. Antibiotics and diarrhea discussed, verbalized understanding. HOSPITAL COURSE: This is an 82-year-old female who is a correction resident came to the emergency room with cough, congestion, found to have peribronchial thickening with thickened septa, right-sided pneumonia, old granulomatous disease, cardiomegaly, moderate to large hiatal hernia. The patient was admitted to the hospital, started on heavy antibiotics, Rocephin 1 gm daily, IV fluids at 75 mL/ hr, Solu-Medrol, Tylenol p.r.n. was given. Continued the correction medications, breathing treatemnts were given. With the given treatment, the patient was still coughing so started on cough medication, Solu-Medrol 40 q.12 hr was given. Cepacol is given. Gradually started feeling better. BUN and creatinine was steady. Sugars were not raised. Hemoglobin stayed stable. Repeat chest x-ray showed improvement of the right-sided infiltrates. At that time, the patient was discharged back to the correction. TIME SPENT: MORE THAN 65 MINUTES MTDD
== END 2017-10-15 18:59 | DRG 194 ==
LOC: ED 17:48 → MEDSURG A 18:23
PROVIDERS: ADMIT Emergency Medicine; ATTEND Emergency Medicine
DX: J18.9 Pneumonia, unspecified organism (principal); I13.0 Hypertensive heart and chronic kidney disease with heart failure and stage 1 through stage 4 chronic kidney disease, or unspecified chronic kidney disease; G91.9 Hydrocephalus, unspecified; J44.9 Chronic obstructive pulmonary disease, unspecified; R05 Cough; R53.1 Weakness; R06.02 Shortness of breath; I25.10 Atherosclerotic heart disease of native coronary artery without angina pectoris; N18.9 Chronic kidney disease, unspecified; I50.9 Heart failure, unspecified; Z87.891 Personal history of nicotine dependence; K21.9 Gastro-esophageal reflux disease without esophagitis; K44.9 Diaphragmatic hernia without obstruction or gangrene; Z86.73 Personal history of transient ischemic attack (TIA), and cerebral infarction without residual deficits; R51 Headache; Z98.890 Other specified postprocedural states; F32.9 Major depressive disorder, single episode, unspecified
CPT/HCPCS: 36415; 80053; 81001; 84145; 85025; 87081; 87502; 87651; 93005; 93010; 94640; 96365; 96375; 99223; 99233; 99239; 99284

== ENCOUNTER 2017-11-02 08:46 | Observation (INO) ==
[2017-11-02 08:54] VITALS: BMI 34.0
--- NOTE | 2017-11-02 09:30 | ED.PDOC ---
General ED Provider: Dr. JULIA JETER Chief Complaint: Chest Pain Stated Complaint: Experienced dizziness this morning while eating breakfast and associated chest pain.The symptoms were fleeting and resolved within 5 minutes. Brought to ER for evaluation.Currently denies chest pain or dizziness. Time Seen by Physician: 08:55 Mode of Arrival: Ambulance Information Source: Patient, Residential, EMT Exam Limitations: No limitations Primary Care Provider: TANGELA JOHN Referred to ED by: PCP Nursing and Triage Documentation Reviewed and Agree: Yes Reviewed sepsis parameters & appropriate labs ordered?: Yes System Inflammatory Response Syndrome: Not Applicable Sepsis Protocol: For patient's 13 years and over: Temp is 96.8 and below OR 101 and greater Pulse >90 BPM Resp >20/minute Acutely Altered Mental Status Are patient's symptoms suggestive of a new infection, such as: -Pneumonia -Skin, Soft Tissue -Endocarditis -UTI -Bone, Joint Infection -Implantable Device -Acute Abdominal Infection -Wound Infection -Meningitis -Blood Stream Catheter Infection -Unknown System Inflammatory Response Syndrome: Not Applicable Cardiovascular Complaint Exam - Chest Pain Complaint/Exam Onset: Sudden Duration: 5 min Symptoms Are: Resolved Timing: Intermittent Initial Severity: Mild Current Severity: None Location: Reports: Midsternal Pain Radiates: Reports: None Character: Reports: Heaviness Aggravating: Reports: None Alleviating: Reports: Spontaneous resolution Associated Signs and Symptoms: Reports: Dizziness. Denies: Diaphoresis, Nausea , Vomiting, Fever, Palpitations, Cough, Hemoptysis, Back pain, Abdominal pain, Short of air, Calf pain, Calf swelling Related History: Reports: Similar episode, Current ARBs, Current Beta Nan, Current Ca Da Silva.Nan, Current Diuretic AMI/ACS Risk Factors: Reports: Hypertension, CHF, Dyslipidemia TAD Risk Factors: Reports: Hypertension Prior Care for this Complaint: Yes Recent Stress Test: No Subcutaneous Emphysema Present: No Diminshed Breath Sounds: No Reproducible Chest Wall Pain: No Bilateral Pulses Present: Yes Unequal Pulses Noted: No If Risk Factors for AMI/ACS Consider: EKG, Cardiac Enzymes, Oxygen, Aspirin Differential Diagnoses: ACS, Chest Wall Pain, GI Diseasae, Other (dizziness ) Review of Systems - Review Of Systems Constitutional: Reports: No symptoms Eyes: Reports: No symptoms Ears, Nose, Mouth, Throat: Reports: No symptoms Respiratory: Reports: No symptoms Cardiac: Reports: No symptoms GI: Reports: No symptoms : Reports: No symptoms Musculoskeletal: Reports: No symptoms Skin: Reports: No symptoms Neurological: Reports: Anxiety, Other (dizziness) Endocrine: Reports: No symptoms Hematologic/Lymphatic: Reports: No symptoms All Other Systems: Reviewed and Negative Past Medical History - Past Medical History Previously Healthy: Yes Endocrine: Reports: None Cardiovascular: Reports: CAD, Hypertension, CHF Respiratory: Reports: None Hematological: Reports: None Gastrointestinal: Reports: GERD Genitourinary: Reports: CKD 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 palpable Shunt port soft pliable), No pain distress, Well-nourished, Obese Ill-appearing: None Pain Distress: None Eyes: DOROTHY, EOMI, Conjunctiva clear ENT: Ears normal, Nose normal, Oropharynx normal Neck: Supple (ROM testing does not reproduce her symptoms) Respiratory: Airway patent, Breath sounds clear, Breath sounds equal, Respirations nonlabored Cardiovascular: RRR, Pulses normal, No rub, No murmur GI/: Soft, Nontender, No masses, Bowel sounds normal, No Organomegaly Musculoskeletal: Normal strength, ROM intact, No edema, No calf tenderness Skin: Warm, Dry, Normal color Neurological: Sensation intact, Motor intact, Reflexes intact, Cranial nerves intact, Alert, Oriented Psychiatric: Affect appropriate, Mood appropriate Interpretation - Radiology Interpretation Radiology Interpretation By: Radiologist Radiology Results: Negative Exam Interpreted: CXR Critical Care Note - Critical Care Note Total Time (mins): 60 Comments: Patients underwent evaluation and diagnostic tesiting for her presenting complaints of chest heaviness, dizziness and pre syncope symptoms. Monitored telemety and vital signs. Patient did not receive morning meds at custodial. Provided therapy here and monitored vitals. Course - Course Hematology/Chemistry: 11/03/17 03:50 11/03/17 03:50 Orders, Labs, Meds: Lab Review 11/02/17 11/02/17 11/02/17 09:45 09:45 09:45 WBC 11.77 H RBC 3.34 L Hgb 10.5 L Hct 32.1 L MCV 96.1 MCH 31.4 H MCHC 32.7 RDW Coeff of Sue 15.0 H Plt Count 239 Immature Gran % (Auto) 0.6 Neut % (Auto) 83.2 Lymph % (Auto) 9.4 L Mcleod % (Auto) 5.4 Eos % (Auto) 1.1 Baso % (Auto) 0.3 Immature Gran # (Auto) 0.1 Neut # (Auto) 9.8 H Lymph # (Auto) 1.1 Mcleod # (Auto) 0.6 Eos # (Auto) 0.1 Baso # (Auto) 0.0 Sodium 137 Potassium 4.9 Chloride 101 Carbon Dioxide 28 Anion Gap 12.9 BUN 14 Creatinine 0.90 Estimated GFR (MDRD) 60.00 BUN/Creatinine Ratio 15.55 Glucose 105 Calcium 9.8 Total Bilirubin 0.3 AST 11 L ALT 12 Alkaline Phosphatase 141 Total Creatine Kinase 14 Troponin I < 0.0100 Total Protein 5.9 Albumin 3.0 L Globulin 2.9 Albumin/Globulin Ratio 1.03 Digoxin 0.88 L Orders Category Date Time Status EKG-(ED ONLY) Stat CARDIO 11/02/17 09:09 Completed CBC W/ AUTO DIFF Stat LAB 11/02/17 09:45 Completed CMP [COMPREHENSIVE METABOLIC PANEL] Stat LAB 11/02/17 09:45 Completed CPK [CREATINE KINASE] Stat LAB 11/02/17 09:45 Completed DIGOXIN Stat LAB 11/02/17 09:45 Completed TROPONIN I Stat LAB 11/02/17 09:45 Completed 0.9 % Sodium Chloride [Saline Flush] MEDS 11/02/17 09:19 Discontinued 1 syr IVF PRN PRN Clonidine HCl [Catapres] MEDS 11/02/17 10:43 Discontinued 0.1 mg PO ONCE STA Digoxin [Lanoxin] MEDS 11/02/17 10:49 Discontinued 125 mcg PO ONCE STA Losartan/Hydrochlorothiazide [Hyzaar 50-12.5 mg Tab] MEDS 11/02/17 10:47 Discontinued 1 tab PO ONCE STA CHEST, 1V AP ONLY Stat RADS 11/02/17 09:19 Completed Medications Discontinued Medications Generic Name Dose Route Start Last Admin Trade Name Freq PRN Reason Stop Dose Admin Acetaminophen 650 mg 11/02/17 13:31 Tylenol PO Q4H PRN Joint Pain Allopurinol 100 mg 11/02/17 21:00 11/03/17 10:23 Zyloprim PO 100 mg BID RHODA Administration Aspirin 81 mg 11/03/17 08:00 11/03/17 10:21 Aspirin Chewable PO 81 mg DAILYWM RHODA Administration Cetirizine HCl 10 mg 11/03/17 09:00 11/03/17 10:29 Zyrtec PO Not Given DAILY RHODA Clonidine 0.1 mg 11/02/17 10:43 11/02/17 11:12 Catapres PO 11/02/17 10:44 0.1 mg ONCE STA Administration Clonidine 0.1 mg 11/02/17 21:00 11/03/17 05:15 Catapres PO 0.1 mg Q12H PRN Administration BLOOD PRESSURE > 170/90 Dicyclomine HCl 10 mg 11/03/17 09:00 11/03/17 10:21 Bentyl PO 10 mg DAILY RHODA Administration Digoxin 125 mcg 11/02/17 10:49 11/02/17 11:14 Lanoxin PO 11/02/17 10:50 125 mcg ONCE STA Administration Digoxin 125 mcg 11/03/17 09:00 11/03/17 10:22 Lanoxin PO 125 mcg DAILY RHODA Administration Diltiazem HCl 180 mg 11/03/17 09:00 11/03/17 10:22 Cardizem Cd PO 180 mg DAILY RHODA Administration Ferrous Sulfate 324 mg 11/02/17 21:00 11/03/17 10:26 Ferrous Sulfate PO Not Given BID RHODA HCTZ/Losartan Potassium 1 tab 11/02/17 10:47 11/02/17 11:13 Hyzaar 50-12.5 Mg Tab PO 11/02/17 10:48 1 tab ONCE STA Administration Sodium Chloride 1,000 mls @ 50 mls/hr 11/02/17 14:00 11/02/17 14:54 Sodium Chloride IV 50 mls/hr .Q20H RHODA Administration Isosorbide Dinitrate 20 mg 11/02/17 15:00 Sorbitrate PO BID NITRATES RHODA Isosorbide Dinitrate 20 mg 11/02/17 15:00 11/03/17 10:25 Sorbitrate PO 20 mg BID NITRATES RHODA Administration Latanoprost 1 drop 11/02/17 21:00 11/02/17 21:06 Xalatan OP Not Given BEDTIME RHODA Losartan Potassium 100 mg 11/03/17 09:00 11/03/17 10:22 Cozaar PO 100 mg DAILY RHODA Administration Meclizine HCl 25 mg 11/02/17 13:31 Antivert PO Q8H PRN Dizziness Meclizine HCl 25 mg 11/02/17 14:30 Antivert PO Q8H PRN Dizziness Multivitamins 1 tab 11/03/17 09:00 11/03/17 10:27 Multivitamin Tablet PO Not Given DAILY RHODA Non-Formulary Medication 1 each 11/02/17 13:31 Butalbital/Aspirin/Caffeine [Fiorinal 50-325-40 Mg Capsule] PO Q4H PRN headache Non-Formulary Medication 2 mg 11/03/17 09:00 11/03/17 10:25 Bumetanide [Bumetanide] PO 2 mg DAILY RHODA Administration Non-Formulary Medication 10 mg 11/03/17 09:00 11/03/17 10:24 Citalopram Hydrobromide [Celexa] PO 10 mg DAILY RHODA Administration Non-Formulary Medication 25 mg 11/02/17 21:00 11/03/17 10:24 Hydralazine Hcl [Hydralazine Hcl] PO 25 mg BID RHODA Administration Non-Formulary Medication 120 mg 11/02/17 21:00 11/03/17 10:24 Sotalol Hcl [Betapace] PO 120 mg BID RHODA Administration Pantoprazole Sodium 40 mg 11/02/17 14:00 11/03/17 05:39 Protonix PO 40 mg QDAC RHODA Administration Sodium Chloride 1 syr 11/02/17 09:19 11/02/17 11:14 Saline Flush IVF 1 syr PRN PRN Administration To flush IV Sucralfate 1 gm 11/02/17 17:00 11/03/17 10:26 Carafate PO 1 gm ACHS RHODA Administration Vital Signs: Temp Pulse Resp BP Pulse Ox 11/02/17 11:14 66 11/02/17 08:47 98 F 62 16 187/65 H 95 HOLLEY Risk Score HOLLEY Risk Score: Risk Score Odds of by 30D 0 0.1 (0.1-0.2) 1 0.3 (0.2-0.3) 2 0.4 (0.3-0.5) 3 0.7 (0.6-0.9) 4 1.2 (1.0-1.5) 5 2.2 (1.9-2.6) 6 3.0 (2.5-3.6) 7 4.8 (3.8-6.1) Departure - Departure Time of Disposition: 11:20 Disposition: PLACED OBSERVATION Discharge Problem: Dizziness, Pre-syncope, Chest pain, S/P INTERIOR DESIGN PROFESSIONAL shunt Condition: Fair Pt referred to PMD for follow-up: Yes (Freddy) IPMP verified?: No (N/I) Allergies/Adverse Reactions: Allergies lactose Adverse Reaction (Verified 11/02/17 09:01) Penicillins Adverse Reaction (Verified 11/02/17 09:01) warfarin [From Coumadin] Adverse Reaction (Verified 11/02/17 09:01) Home Medications: Ambulatory Orders Acetaminophen 650 mg PO Q4H PRN 10/11/17 Allopurinol [Zyloprim] 100 mg PO BID 10/11/17 Aspirin [Aspirin Chewable] 81 mg PO DAILYWM 10/11/17 Bisacodyl [Dulcolax] 10 mg RC DAILY PRN 10/11/17 Butalbital/Aspirin/Caffeine [Fiorinal 50-325-40 mg Capsule] 1 each PO Q4H PRN Cetirizine HCl [Zyrtec] 10 mg PO DAILY 10/11/17 Clonidine HCl [Catapres] 0.1 mg PO BID 10/11/17 Dicyclomine HCl [Bentyl] 10 mg PO DAILY 10/11/17 Digoxin [Digox] 125 mcg PO DAILY 10/11/17 Diltiazem HCl [Diltiazem ER] 180 mg PO DAILY 10/11/17 Ferrous Sulfate [Feosol] 325 mg PO BID 10/11/17 Isosorbide Dinitrate [Sorbitrate] 20 mg PO BID NITRATES 10/11/17 Latanoprost [Xalatan] 1 drop RIGHTEYE BEDTIME 10/11/17 Loperamide HCl [Loperamide] 2 mg PO BID PRN 10/11/17 Losartan Potassium [Cozaar] 100 mg PO DAILY 10/11/17 Magnesium Hydroxide [Milk of Magnesia] 30 ml PO ONCE PRN 10/11/17 Meclizine HCl [Antivert] 25 mg PO Q8H PRN 10/11/17 Sucralfate [Carafate] 1 gm PO ACHS 10/11/17 Guaifenesin/Dextromethorphan [Guaifenesin Dm Syrup] 5 ml PO QID PRN #100 ml 12/27 Benzocaine/Menthol [Cepacol Sore Throat Lozenge] 1 lozenge MM DIRECTED PRN Bumetanide 2 mg PO DAILY 11/02/17 Citalopram Hydrobromide [Celexa] 10 mg PO DAILY 11/02/17 Guaifenesin [Guaifenesin ER] 600 mg PO Q12HR 11/02/17 Hydralazine HCl 25 mg PO BID 11/02/17 Multivitamin with Minerals [Multiple Vitamin] 1 each PO DAILY 11/02/17 Sotalol HCl [Betapace] 120 mg PO BID 11/02/17 Disposition Discussed With: Patient Additional Information: Discussed case with Dr Hayes.Request admission for observation of cardiac/ neuro status Explained treatment plan to patient and sister in law who was present
--- NOTE | 2017-11-02 10:08 | DI ---
EXAM: Chest one view, frontal view only. HISTORY: Chest pain. COMPARISON: 10/15/2017. FINDINGS: A right-sided ventriculoperitoneal shunt catheter is intact in its visualized portions. A left-sided pacemaker again noted. Heart size is normal. Aortic atherosclerotic calcifications are present. L arge hiatal hernia noted. The lungs are clear without pleural effusion or pneumothorax. No acute os seous abnormality identified. Degenerative changes seen in the left shoulder. Since the prior study , there has been no significant interval change. IMPRESSION: No acute process.
[2017-11-02] MEDS ORDERED: CATAPRES PO STA (10:43)
[2017-11-02] MEDS ORDERED: HYZAAR 50-12.5 MG TAB PO STA (10:47)
[2017-11-02] MEDS ORDERED: LANOXIN PO STA (10:49)
[2017-11-02] MEDS ORDERED: TYLENOL PO PRN (13:31)
[2017-11-02] MEDS ORDERED: ASPIRIN PO PRN (13:31)
[2017-11-02] MEDS ORDERED: BUTALBITAL PO PRN (13:31)
[2017-11-02] MEDS ORDERED: ANTIVERT PO PRN ×2 (13:31→14:30)
[2017-11-02] MEDS ORDERED: CAFFEINE PO PRN (13:31)
[2017-11-02] MEDS ORDERED: [UNRECOGNIZED DRUG - OTHER] PO PRN (13:31)
[2017-11-02] MEDS ORDERED: SODIUM CHLORIDE 1,000 ML IV SCH (14:00)
[2017-11-02] MEDS: SORBITRATE PO SCH (14:52)
[2017-11-02] MEDS: PROTONIX PO SCH (14:52)
[2017-11-02] MEDS ORDERED: SORBITRATE PO SCH (15:00)
[2017-11-02] MEDS: CARAFATE PO SCH ×2 (16:52→21:02)
[2017-11-02] MEDS: CATAPRES ONE ×2 (17:53→17:55)
[2017-11-02] MEDS ORDERED: NON-FORMULARY MEDICATION (Hydralazine Hcl [Hydralazine Hcl] 25 MG) PO SCH (21:00)
[2017-11-02] MEDS ORDERED: APRESOLINE PO SCH (21:00)
[2017-11-02] MEDS ORDERED: SOTALOL HCL 120 MG PO SCH (21:00)
[2017-11-02] MEDS ORDERED: CATAPRES PO PRN (21:00)
[2017-11-02] MEDS ORDERED: BETAPACE PO SCH (21:00)
[2017-11-02] MEDS ORDERED: NON-FORMULARY MEDICATION (Ferrous Sulfate [Feosol] 325 MG) PO SCH (21:00)
[2017-11-02] MEDS ORDERED: XALATAN OP SCH (21:00)
[2017-11-02] MEDS: NON-FORMULARY MEDICATION (Hydralazine Hcl [Hydralazine Hcl] 25 MG) PO SCH (21:03)
[2017-11-02] MEDS: NON-FORMULARY MEDICATION (Sotalol Hcl [Betapace] 120 MG) PO SCH (21:03)
[2017-11-02] MEDS: ZYLOPRIM PO SCH (21:04)
[2017-11-02] MEDS: FERROUS SULFATE PO SCH (21:06)
[2017-11-03] MEDS: PROTONIX PO SCH (05:39)
[2017-11-03] MEDS: CARAFATE PO SCH ×2 (05:40→10:26)
[2017-11-03] MEDS ORDERED: ASPIRIN CHEWABLE PO SCH (08:00)
[2017-11-03] MEDS ORDERED: LANOXIN PO SCH (09:00)
[2017-11-03] MEDS ORDERED: MULTIVITAMIN TABLET PO SCH (09:00)
[2017-11-03] MEDS ORDERED: BENTYL PO SCH (09:00)
[2017-11-03] MEDS ORDERED: CARDIZEM CD PO SCH (09:00)
[2017-11-03] MEDS ORDERED: ZYRTEC PO SCH (09:00)
[2017-11-03] MEDS ORDERED: NON-FORMULARY MEDICATION (Citalopram Hydrobromide [Celexa] 10 MG) PO SCH ×2 (09:00)
[2017-11-03] MEDS ORDERED: NON-FORMULARY MEDICATION (Bumetanide [Bumetanide] 2 MG) PO SCH ×2 (09:00)
[2017-11-03] MEDS ORDERED: MULTIVITAMIN WITH MINERALS PO SCH (09:00)
[2017-11-03] MEDS ORDERED: BUMEX PO SCH (09:00)
[2017-11-03] MEDS ORDERED: COZAAR PO SCH (09:00)
[2017-11-03] MEDS ORDERED: NON-FORMULARY MEDICATION (Cetirizine Hcl [Zyrtec] 10 MG) PO SCH (09:00)
[2017-11-03] MEDS ORDERED: DILTIAZEM HCL 180 MG PO SCH (09:00)
[2017-11-03] MEDS ORDERED: CELEXA PO SCH (09:00)
--- NOTE | 2017-11-03 10:05 | HP ---
DATE OF SERVICE: 11/02/17 CHIEF COMPLAINT/ HISTORY OF PRESENT ILLNESS: The patient was sent from the [facility] for having the severe chest pain. Started having right side chest pain, hurt to swallow and hurt to breathe. No coughing. The patient was recently in the hospital for the pneumonia. At the time the patient came here the patient was feeling better and seen by Dr. Sarah in the Emergency Room. Chest x-ray was negative. WBC 11.77, Troponin negative. BNP 165, Digoxin level is normal. In review of patient's age and chest pain the patient being admitted to the hospital for observation to rule out acute coronary syndrome. REVIEW OF SYSTEMS: CONSTITUTIONAL: No fever, no chills. HEENT: Normal. ENDOCRINE: No weight gain; no weight loss. CVS: Chest pain. No PND, no orthopnea. Shortness of breath. No PND, no orthopnea. RESPIRATORY: No cough, no congestion. No hemoptysis. GI: No nausea, no vomiting. No abdominal pain. No melena. : No hematuria. No polyuria. MUSCULOSKELETAL: No joint swelling. PSYCHIATRIC: Not anxious. No depression. No suicidal thoughts. No homicidal thoughts. SKIN: Intact, no open lesions. PAST MEDICAL HISTORY: Coronary artery disease Permanent pacemaker CVA History of brain shunt GERD Osteoarthritis Joint replacement Depression PAST SURGICAL HISTORY: Bilateral knee replacement PERSONAL HISTORY: The patient lives at halfway, partially dependant upon the ADL's. Family History high blood pressure. MEDICATIONS: Antivert Loperamide Dulcolax Acetaminophen Carafate Isosorbide Zyloprim Feosol Diltiazem Digoxin Cozaar Bentyl Zyrtec Aspirin Fiorinal Catapres Xalatan Milk of Magnesia Guaifenesin Cepacol Multivitamin ALLERGIES: Lactose Penicillin Coumadin PHYSICAL EXAMINATION: V/S: Blood pressure 152/76, respiratory rate 22, heart rate 60, temperature 97.7 with saturation 95%. HEENT: Atraumatic, normocephalic. No scleral icterus. Pallor positive. Mucosa dry. NECK: Supple. No JVD, no bruit. No lymphadenopathy. No thyromegaly. HEART: S1, S2 normal. No murmur. No cyanosis or clubbing. No ascites. LUNGS: Clear to auscultation. No rales or rhonchi. ABDOMEN: Soft, nontender. Bowel sounds are active. No CVA tenderness. No rigidity or guarding. EXTREMITIES: No pedal edema. No cyanosis or clubbing MUSCULOSKELETAL: Normal joints, no swelling. NEUROLOGIC: The patient is SKIN: Intact; no open lesions. LYMPHATIC: No lymph nodes palpable. LABS: Sodium 137, potassium 4.9, chloride 101, bicarb 28, BUN 14, creatinine 0.90, glucose 105, WBC 11.77, hgb 10.5, hct 32.1, plt count 239. ASSESSMENT: 1. Chest pain rule out ACS 2. History of CAD 3. Hypertension 4. Atrial fibrillation 5. Osteoarthritis 6. DJD spine PLAN: 1. Admit the patient for the observation 2. Continue the home medication 3. Will continue the cardiac enzymes and troponin 4. Will get echocardiogram in the morning 5. BNP TIME SPENT: MORE THAN 65-70 minutes MTDD
[2017-11-03] MEDS: ZYLOPRIM PO SCH (10:23)
[2017-11-03] MEDS: NON-FORMULARY MEDICATION (Sotalol Hcl [Betapace] 120 MG) PO SCH (10:24)
[2017-11-03] MEDS: NON-FORMULARY MEDICATION (Hydralazine Hcl [Hydralazine Hcl] 25 MG) PO SCH (10:24)
[2017-11-03] MEDS: SORBITRATE PO SCH (10:25)
[2017-11-03] MEDS: FERROUS SULFATE PO SCH (10:26)
[2017-11-03 15:34] VITALS: BP 117/60; TEMP 97.6
--- NOTE | 2017-11-22 13:35 | DS ---
DATE OF SERVICE: 11/03/17 FINAL DIAGNOSIS: 1. Chest pain, noncardiac 2. Dizziness 3. Hypertension 4. Hiatal hernia 5. CAD 6. GERD 7. Rheumatoid arthritis 8. CVA 9. History of ventricular peritoneal shunt 10.Pacemaker 11.Bilateral TKR. DISCHARGE INSTRUCTIONS: Discharge to [facility]. We will be seeing her in the [facility] followup rounds. CBC and CMP within one week then every 3 months. Continue the rest of the [facility] medications. MEDICATIONS AT DISCHARGE: Tylenol Zyloprim Aspirin Bisacodyl Bumex Fiorinal Cetirizine Citalopram Clonidine Bentyl Digoxin Diltiazem Feosol Hydralazine Isosorbide Xalatan Loperamide Cozaar Magnesium Sotalol Carafate NEW PRESCRIPTIONS: None DIET INSTRUCTIONS: Regular diet Line Crew Supervisor soft ACTIVITY: Can participate in the [facility] activities. DISEASE SPECIFIC EDUCATION: Non cardiac chest pain been discussed. HOSPITAL COURSE: Deric Van 82 year old female came to the emergency room with the midsternal pain and no radiation. As pain was not getting better the patient was sent to the emergency room for the evaluation. First set of cardiac enzymes were negative. BNP was 165, EKG nonspecific changes. The patient's cardiac enzymes, chest x-ray and EKG was not changed. The patient with the given Zofran and Protonix the patient was feeling better and patient being discharged back to the [facility] as at this point the patient doesn't want any aggressive evaluations for the chest pain with stress echo and echocardiogram. The patient says that she is old and she doesn't want to have any problems and no know any problems that she has at this time. As the patient was doing fine and no more chest pain and feeling better. The patient being discharged back to the [facility]. TIME SPENT: MORE THAN 45 MINUTES MTDD
== END 2017-11-03 14:10 ==
LOC: ED 08:46 → MEDSURG A 11:27
PROVIDERS: ADMIT Emergency Medicine; ATTEND Emergency Medicine
DX: R07.89 Other chest pain (principal); R42 Dizziness and giddiness; I10 Essential (primary) hypertension; K44.9 Diaphragmatic hernia without obstruction or gangrene; I25.10 Atherosclerotic heart disease of native coronary artery without angina pectoris; K21.9 Gastro-esophageal reflux disease without esophagitis; M06.9 Rheumatoid arthritis, unspecified; I44.0 Atrioventricular block, first degree; Z95.0 Presence of cardiac pacemaker; Z98.2 Presence of cerebrospinal fluid drainage device; Z79.899 Other long term (current) drug therapy; Z86.73 Personal history of transient ischemic attack (TIA), and cerebral infarction without residual deficits
CPT/HCPCS: 36415; 80053; 80162; 81001; 82550; 83880; 84484; 85025; 87081; 93005; 93010; 96360; 96361; 99284

== ENCOUNTER 2018-02-08 13:10 | Observation (INO) | payer OTHER ==
--- NOTE | 2018-02-08 13:48 | ED.PDOC ---
General ED Provider: Dr. JULIA JETER Chief Complaint: Non-specific Complaint Stated Complaint: rt sided facial droop this AM noted by staff at [facility]. Reported that her Hand therapy teacher equal, pedal pushes equal. She is A/O x 3. Has a known pmx brain tumor with surgery. Pain rt shoulder (Hx arthritis), et headache. Time Seen by Physician: 13:40 Information Source: Patient, Prison Exam Limitations: No limitations Primary Care Provider: TANGELA JOHN Referred to ED by: Other Nursing and Triage Documentation Reviewed and Agree: Yes Does patient meet sepsis criteria?: No System Inflammatory Response Syndrome: Not Applicable Sepsis Protocol: For patient's 13 years and over: Temp is 96.8 and below OR 101 and greater Pulse >90 BPM Resp >20/minute Acutely Altered Mental Status Are patient's symptoms suggestive of a new infection, such as: -Pneumonia -Skin, Soft Tissue -Endocarditis -UTI -Bone, Joint Infection -Implantable Device -Acute Abdominal Infection -Wound Infection -Meningitis -Blood Stream Catheter Infection -Unknown Neurological Complaint Exam - Weakness Complaint/Exam Onset: Sudden Symptoms Are: Still present Timing: Intermittent Episodes Lasting: Hours (last 12-15 hours) Initial Severity: Moderate Current Severity: Moderate Character: Denies: Lightheaded, Unable to describe Aggravating: Reports: None Alleviating: Reports: None Related History: Similar episode Cardiac Risk Factors: Reports: Hypertension Review of Systems - Review Of Systems Constitutional: Reports: No symptoms Eyes: Reports: No symptoms Ears, Nose, Mouth, Throat: Reports: No symptoms Respiratory: Reports: No symptoms Cardiac: Reports: No symptoms GI: Reports: No symptoms : Reports: No symptoms Musculoskeletal: Reports: No symptoms Skin: Reports: No symptoms Neurological: Reports: No symptoms, Other (Rt Sided Facial Drooping ) Endocrine: Reports: No symptoms Hematologic/Lymphatic: Reports: No symptoms All Other Systems: Reviewed and Negative Past Medical History - Past Medical History Previously Healthy: Yes Endocrine: Reports: None Cardiovascular: Reports: CAD, Hypertension, CHF Respiratory: Reports: None Hematological: Reports: None Gastrointestinal: Reports: GERD Genitourinary: Reports: CKD 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) Musculoskeletal: Reports: None Cancer: Reports: None Last Menstrual Period: unknown - Surgical History General Surgical History: Reports: Unknown - Family History Family History: Reports: Unknown - Social History Smoking Status: Former smoker Hx Substance Use: No Alcohol Screening: None Physical Exam - Physical Exam Appearance: Well-appearing, No pain distress, Well-nourished Ill-appearing: None Pain Distress: None Eyes: DOROTHY, EOMI, Conjunctiva clear ENT: Ears normal, Nose normal, Oropharynx normal Neck: Supple (VPShunt tube Rt anterior lateral neck) Respiratory: Airway patent, Breath sounds clear, Breath sounds equal, Respirations nonlabored Cardiovascular: RRR, Pulses normal, No rub, No murmur GI/: Soft, Nontender, No masses, Bowel sounds normal, No Organomegaly Musculoskeletal: Normal strength, ROM intact, No edema, No calf tenderness Skin: Warm, Dry, Normal color Neurological: Sensation intact, Motor intact (Rt Sided facial droop ), Reflexes intact, Cranial nerves intact, Alert, Oriented Psychiatric: Affect appropriate, Mood appropriate Interpretation - Radiology Interpretation Radiology Results: No acute changes Xray Comments: no acute changes Critical Care Note - Critical Care Note Total Time (mins): 30 Course - Course Hematology/Chemistry: 02/08/18 14:15 02/08/18 14:15 Orders, Labs, Meds: Lab Review 02/08/18 02/08/18 14:15 14:15 WBC 12.72 H RBC 3.30 L Hgb 10.2 L Hct 31.8 L MCV 96.4 MCH 30.9 MCHC 32.1 RDW Coeff of Sue 14.6 Plt Count 280 Immature Gran % (Auto) 1.4 Neut % (Auto) 80.0 Lymph % (Auto) 10.5 Mckinley % (Auto) 6.1 Eos % (Auto) 1.6 Baso % (Auto) 0.4 Immature Gran # (Auto) 0.2 Neut # (Auto) 10.2 H Lymph # (Auto) 1.3 Mckinley # (Auto) 0.8 Eos # (Auto) 0.2 Baso # (Auto) 0.1 Sodium 138 Potassium 4.1 Chloride 102 Carbon Dioxide 27 Anion Gap 13.1 BUN 20 H Creatinine 1.13 Estimated GFR (MDRD) 46.00 BUN/Creatinine Ratio 17.69 Glucose 114 Calcium 9.6 Total Bilirubin 0.2 AST 15 ALT 18 Alkaline Phosphatase 138 Troponin I 0.0100 Total Protein 6.4 Albumin 3.2 L Globulin 3.2 Albumin/Globulin Ratio 1.00 Orders Category Date Time Status CBC W/ AUTO DIFF Stat LAB 02/08/18 14:15 Completed CMP [COMPREHENSIVE METABOLIC PANEL] Stat LAB 02/08/18 14:15 Completed TROPONIN I Stat LAB 02/08/18 14:15 Completed UA [URINALYSIS C & S IF INDICATED] Stat LAB 02/08/18 13:[address] HEAD W/O CONTRAST Stat RADS 02/08/18 13:46 Completed Vital Signs: Temp Pulse Resp BP Pulse Ox 02/08/18 13:21 98.2 F 65 20 173/63 H 96 Departure - Departure Time of Disposition: 17:30 Disposition: PLACED OBSERVATION Discharge Problem: Facial paralysis/Boyd palsy Condition: Fair Pt referred to PMD for follow-up: Yes IPMP verified?: No Allergies/Adverse Reactions: Allergies lactose Adverse Reaction (Verified 11/02/17 09:01) Penicillins Adverse Reaction (Verified 11/02/17 09:01) warfarin [From Coumadin] Adverse Reaction (Verified 11/02/17 09:01) Home Medications: Ambulatory Orders Acetaminophen 650 mg PO Q4H PRN 10/11/17 Allopurinol [Zyloprim] 100 mg PO BID 10/11/17 Aspirin [Aspirin Chewable] 81 mg PO DAILYWM 10/11/17 Bisacodyl [Dulcolax] 10 mg RC DAILY PRN 10/11/17 Butalbital/Aspirin/Caffeine [Fiorinal 50-325-40 mg Capsule] 1 each PO Q4H PRN Cetirizine HCl [Zyrtec] 10 mg PO DAILY 10/11/17 Clonidine HCl [Catapres] 0.1 mg PO BID 10/11/17 Dicyclomine HCl [Bentyl] 10 mg PO DAILY 10/11/17 Digoxin [Digox] 125 mcg PO DAILY 10/11/17 Diltiazem HCl [Diltiazem ER] 180 mg PO DAILY 10/11/17 Ferrous Sulfate [Feosol] 325 mg PO BID 10/11/17 Isosorbide Dinitrate [Sorbitrate] 20 mg PO BID NITRATES 10/11/17 Latanoprost [Xalatan] 1 drop RIGHTEYE BEDTIME 10/11/17 Loperamide HCl [Loperamide] 2 mg PO BID PRN 10/11/17 Losartan Potassium [Cozaar] 100 mg PO DAILY 10/11/17 Magnesium Hydroxide [Milk of Magnesia] 30 ml PO ONCE PRN 10/11/17 Meclizine HCl [Antivert] 25 mg PO Q8H PRN 10/11/17 Sucralfate [Carafate] 1 gm PO ACHS 10/11/17 Guaifenesin/Dextromethorphan [Guaifenesin Dm Syrup] 5 ml PO QID PRN #100 ml 12/27 Benzocaine/Menthol [Cepacol Sore Throat Lozenge] 1 lozenge MM DIRECTED PRN Bumetanide 2 mg PO DAILY 11/02/17 Citalopram Hydrobromide [Celexa] 10 mg PO DAILY 11/02/17 Hydralazine HCl 25 mg PO BID 11/02/17 Multivitamin with Minerals [Multiple Vitamin] 1 each PO DAILY 11/02/17 Sotalol HCl [Betapace] 120 mg PO BID 11/02/17 Bumetanide 2 mg PO DAILY PRN 02/08/18 Pantoprazole Sodium [Protonix] 40 mg PO BID 02/08/18 Sodium Phosphate,Mckinley-Dibasic [Fleet Enema] 1 bottle RC DAILY PRN 02/08/18 Disposition Discussed With: Patient
--- NOTE | 2018-02-08 15:01 | CT ---
EXAM: CT head without contrast HISTORY: Facial drooping and history of brain tumor COMPARISON: CT head 01/05/2017 TECHNIQUE: Serial axial images of the brain were obtained from the skull base to the vertex without IV contrast. FINDINGS: The ventricles are unchanged and mildly enlarged with a posterior right ventriculostomy tu be in place. There is scattered low attenuation in the periventricular white matter which is not sig nificantly changed. There is narrowing encephalomalacia in the right periventricular white matter. There is no visualized mass or acute hemorrhage. There is generalized volume loss. The osseous stru ctures are unchanged. IMPRESSION: 1. No acute intracranial abnormality or hemorrhage. If there is concern for acute stroke, MRI may b e obtained. 2. No change in ventriculostomy tube and prominent ventricles. 3. Generalized volume loss and scattered low attenuation in the periventricular white matter suggest beverly of microangiopathy.
[2018-02-08 19:22] VITALS: BMI 34.3
[2018-02-08] MEDS ORDERED: ROBITUSSIN DM SYRUP PO PRN (20:41)
[2018-02-08] MEDS ORDERED: [UNRECOGNIZED DRUG - OTHER] PO PRN (20:41)
[2018-02-08] MEDS ORDERED: ASPIRIN PO PRN (20:41)
[2018-02-08] MEDS ORDERED: CAFFEINE PO PRN (20:41)
[2018-02-08] MEDS ORDERED: BUTALBITAL PO PRN (20:41)
[2018-02-08] MEDS ORDERED: CEPACOL SORE THROAT LOZENGE MUCOUSMEMB PRN (20:41)
[2018-02-08] MEDS ORDERED: XALATAN OP SCH (21:00)
[2018-02-08] MEDS ORDERED: NON-FORMULARY MEDICATION (Hydralazine Hcl [Hydralazine Hcl] 25 MG) PO SCH (21:00)
[2018-02-08] MEDS ORDERED: ZYLOPRIM PO SCH (21:00)
[2018-02-08] MEDS ORDERED: NON-FORMULARY MEDICATION (Sotalol Hcl [Betapace] 120 MG) PO SCH (21:00)
[2018-02-08] MEDS ORDERED: PROTONIX PO SCH (21:00)
[2018-02-08] MEDS ORDERED: SODIUM CHLORIDE 1,000 ML IV SCH (21:00)
[2018-02-08] MEDS ORDERED: CATAPRES PO SCH (21:00)
[2018-02-08] MEDS ORDERED: CARAFATE ONE (21:07)
[2018-02-08] MEDS: CARAFATE PO SCH (21:07)
[2018-02-08] MEDS: NON-FORMULARY MEDICATION (Ferrous Sulfate [Feosol] 325 MG) PO SCH (21:10)
[2018-02-08] MEDS: SOLU-MEDROL 40 MG IVP SCH (23:10)
[2018-02-09] MEDS ORDERED: CARAFATE ONE (05:48)
[2018-02-09] MEDS: VALTREX PO SCH ×3 (05:48→20:39)
[2018-02-09] MEDS: CARAFATE PO SCH ×4 (05:48→20:39)
[2018-02-09] MEDS: SOLU-MEDROL 40 MG IVP SCH ×3 (05:48→20:39)
[2018-02-09] MEDS ORDERED: NON-FORMULARY MEDICATION (Cetirizine Hcl [Zyrtec] 10 MG) PO SCH (09:00)
[2018-02-09] MEDS ORDERED: MULTIVITAMIN WITH MINERALS PO SCH (09:00)
[2018-02-09] MEDS ORDERED: NON-FORMULARY MEDICATION (Bumetanide [Bumetanide] 2 MG) PO SCH (09:00)
[2018-02-09] MEDS: ASPIRIN CHEWABLE PO SCH (09:44)
[2018-02-09] MEDS: ARTIFICIAL TEARS OPTH SOL OP SCH ×2 (09:44→20:43)
[2018-02-09] MEDS: NON-FORMULARY MEDICATION (Sotalol Hcl [Betapace] 120 MG) PO SCH ×2 (09:45→20:39)
[2018-02-09] MEDS: ZYLOPRIM PO SCH ×2 (09:45→20:38)
[2018-02-09] MEDS: CATAPRES PO SCH ×2 (09:46→20:39)
[2018-02-09] MEDS: PROTONIX PO SCH ×2 (09:46→17:25)
[2018-02-09] MEDS: NON-FORMULARY MEDICATION (Hydralazine Hcl [Hydralazine Hcl] 25 MG) PO SCH ×2 (09:46→20:39)
[2018-02-09] MEDS: NON-FORMULARY MEDICATION (Citalopram Hydrobromide [Celexa] 10 MG) PO SCH (09:47)
[2018-02-09] MEDS: BENTYL PO SCH (09:47)
[2018-02-09] MEDS: LANOXIN PO SCH (09:48)
[2018-02-09] MEDS: SORBITRATE PO SCH ×2 (09:49→14:16)
[2018-02-09] MEDS: DILTIAZEM HCL 180 MG PO SCH (09:49)
[2018-02-09] MEDS: ANTIVERT PO PRN (09:49)
[2018-02-09] MEDS: COZAAR PO SCH (09:50)
[2018-02-09] MEDS: NON-FORMULARY MEDICATION (Ferrous Sulfate [Feosol] 325 MG) PO SCH (09:51)
[2018-02-09] MEDS: SODIUM CHLORIDE 1,000 ML IV SCH (09:51)
[2018-02-09] MEDS: XALATAN OP SCH (20:46)
[2018-02-09] MEDS ORDERED: TYLENOL PO STA (22:58)
[2018-02-10] MEDS: SOLU-MEDROL 40 MG IVP SCH ×3 (06:00→20:55)
[2018-02-10] MEDS: VALTREX PO SCH ×3 (06:00→20:56)
[2018-02-10] MEDS: CARAFATE PO SCH ×4 (06:00→20:53)
[2018-02-10] MEDS: PROTONIX PO SCH ×2 (06:00→17:00)
[2018-02-10] MEDS: ARTIFICIAL TEARS OPTH SOL OP SCH ×2 (09:16→20:52)
[2018-02-10] MEDS: ASPIRIN CHEWABLE PO SCH (09:16)
[2018-02-10] MEDS: ZYLOPRIM PO SCH ×2 (09:23→20:57)
[2018-02-10] MEDS: NON-FORMULARY MEDICATION (Sotalol Hcl [Betapace] 120 MG) PO SCH ×2 (09:23→20:56)
[2018-02-10] MEDS: CATAPRES PO SCH ×2 (09:24→20:54)
[2018-02-10] MEDS: SORBITRATE PO SCH ×2 (09:24→15:12)
[2018-02-10] MEDS: NON-FORMULARY MEDICATION (Hydralazine Hcl [Hydralazine Hcl] 25 MG) PO SCH ×2 (09:24→20:55)
[2018-02-10] MEDS: DILTIAZEM HCL 180 MG PO SCH (09:25)
[2018-02-10] MEDS: LANOXIN PO SCH (09:25)
[2018-02-10] MEDS: ANTIVERT PO PRN (09:25)
[2018-02-10] MEDS: COZAAR PO SCH (09:25)
[2018-02-10] MEDS: BENTYL PO SCH (09:26)
[2018-02-10] MEDS: NON-FORMULARY MEDICATION (Citalopram Hydrobromide [Celexa] 10 MG) PO SCH (09:26)
[2018-02-10] MEDS: SODIUM CHLORIDE 1,000 ML IV SCH (09:51)
--- NOTE | 2018-02-10 13:35 | HP ---
DATE OF SERVICE: 02/08/18 CHIEF COMPLAINT: Facial droop and weakness. HISTORY OF PRESENT ILLNESS: This is a 82 year old female with a history of atrial fibrillation and CAD with history of intracranial bleed and shunt. 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 With the slurry speech and risk for the aspiration the patient was admitted to observation for further evaluation. REVIEW OF SYSTEMS: CONSTITUTIONAL: No fever, no chills. Weakness and tiredness. Right sided facial weakness. Slurry speech. HEENT: Normal. ENDOCRINE: No weight gain; no weight loss. CVS: No chest pain. No PND, no orthopnea. No shortness of breath. No PND, no orthopnea. RESPIRATORY: Cough, Congestion. No hemoptysis. GI: No nausea, no vomiting. No abdominal pain. No melena. : No hematuria. No polyuria. MUSCULOSKELETAL: No joint swelling. PSYCHIATRIC: Not anxious. No depression. No suicidal thoughts. No homicidal thoughts. SKIN: Intact, no open lesions. PAST MEDICAL HISTORY/PAST SURGICAL HISTORY: CAD Permanent pacemaker History of brain shunt cerebrovascular accident Headache Diarrhea Chronic kidney disease Joint replacement Bilateral knee and hip Depression Anxiety COPD PERSONAL HISTORY: The patient is . The patient is a smoker, no alcohol and illicit drugs. FAMILY HISTORY: The patient is unable to provide family history MEDICATIONS: Antivert Loperamide Dulcolax Tylenol Carafate Sorbitrate Zyloprim Feosol Diltiazem Digoxin Cozaar Bentyl Zyrtec Aspirin Fiorinal Clonidine Milk of Magnesia Robitussin Multiple vitamin Celexa Betapace Hydralazine Bumetanide Fleet enema Pantoprazole ALLERGIES: Lactose Penicillins Warfarin PHYSICAL EXAMINATION: V/S: Blood pressure 173/63, respiratory rate 20, heart rate 65, temperature 98.2 with saturation 96%. HEENT: Atraumatic, normocephalic. No scleral icterus. Pallor positive. Mucosa dry. FACE: Right sided face droopiness is present. Can not raise the right eye brow. NECK: Supple. No JVD, no bruit. No lymphadenopathy. No thyromegaly. HEART: S1, S2 normal. No murmur. No cyanosis or clubbing. No ascites. LUNGS: Decreased and clear to auscultation. No rales or rhonchi. ABDOMEN: Soft, nontender. Bowel sounds are active. No CVA tenderness. No rigidity or guarding. EXTREMITIES: No pedal edema. No cyanosis or clubbing MUSCULOSKELETAL: Normal joints, no swelling. NEUROLOGIC: The patient is awake and alert. SKIN: Intact; no open lesions. LYMPHATIC: No lymph nodes palpable. LABS: WBC 12.72, hgb 10.2, hct 31.8, plt count 280, sodium 138, potassium 4.1, chloride 102, bicarb 27, BUN 20, creatinine 1.13, glucose 114. ASSESSMENT: 1. Ryder's Palsy 2. UTI 3. Elevated WBC 4. CAD 5. History of brain shunt PLAN: 1. Admit patient to the observation 2. Carotid ultrasound in the morning 3. Solu-Medrol 40mg Q 8 hours 4. Valacyclovir TIME SPENT: MORE THAN 65 minutes MTDD
--- NOTE | 2018-02-10 13:40 | PN ---
DATE OF SERVICE: 02/09/18 SUBJECTIVE: The patient was right facial droop. CT head is negative. 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 Still having some problem with the talking otherwise slurry speech. REVIEW OF SYSTEMS: CONSTITUTIONAL: No fever, no chills. HEENT: Normal. ENDOCRINE: No weight gain, no weight loss. CVS: No angina symptoms. No CHF symptoms. No palpitations. No atypical chest pain for CAD. No shortness of breath. No PND, no orthopnea. RESPIRATORY: No cough, no hemoptysis. GI: No nausea, no vomiting. No abdominal pain. : No hematuria. No polyuria. MUSCULOSKELETAL: No joint swelling. PSYCHIATRIC: Not anxious. No depression. No suicidal thoughts. No homicidal thoughts. SKIN: Intact. No rash. PHYSICAL EXAMINATION: V/S: Blood pressure 135/70, respiratory rate 20, heart rate 64, temperature 97.1 with saturation 98. HEENT: Normocephalic, atraumatic. Mucosa dry. Pallor positive. No icterus. Facial deformities seen. Right side of the face is droopy. NECK: Supple. No JVD, no carotid bruit. No lymphadenopathy. LUNGS: Decreased and clear to auscultation. No rales or rhonchi. HEART: S1, S2 normal. No S3. No murmur, gallop or regurgitation. ABDOMEN: Soft, nontender. Bowel sounds active. No rigidity. No rebound or guarding. No CVA tenderness. EXTREMITIES: No cyanosis, clubbing or pedal edema. MUSCULOSKELETAL: No joint swelling. NEUROLOGIC: Awake, alert. No focal deficit. LYMPHATIC: No lymph nodes palpable. SKIN: Intact. LABS: WBC 12.68, hgb 10.0, hct 31.2, plt count 219, sodium 138, potassium 4.5, chloride 106, bicarb 22, BUN 18, creatinine 0.94 and glucose 159. ASSESSMENT: 1. Right sided facial Ryder's Palsy 2. UTI 3. History of atrial fibrillation 4. History of Shunt in the brain 5. Diabetes 6. Hypertension PLAN: 1. Solu-Medrol 80 Q 12 hours 2. Valacyclovir 3. IV fluids 4. Continue the rest of the medication 5. Will go ahead and check the Digoxin level TIME SPENT: More than 35 minutes MTDD
--- NOTE | 2018-02-10 14:11 | US ---
Exam: Irving-scale and color duplex Doppler ultrasonographic evaluation of the carotid arteries with s pectral waveform analysis. Comparison: None available. Reason for exam: Facial droop. NASCET FINDINGS: There is a small to moderate amount of atheromatous plaque in the proximal right internal carotid artery The right ECA measures 130 cm/sec Right CCA measures 80 cm/sec The right internal carotid artery peak systolic velocity measures 100 cm/sec Right internal carotid artery/CCA PSV ratio measures 1.3 The right internal carotid artery end-diastolic velocity measures 10 cm/sec There is normal antegrade right vertebral artery flow. There is dense atheromatous plaque seen in the distal common carotid and proximal internal carotid at the level of the bulb. The left external carotid artery measures 160 cm/sec The left common carotid measures 100 cm/sec Left internal carotid artery peak systolic velocity measures 90 cm/sec Left internal carotid artery/CCA PSV ratio measures 1.0 Left internal carotid artery end-diastolic velocity measures 10 cm/sec The left vertebral artery is not definitively seen on the exam. Impression: 1. No significant stenotic disease is seen by peak systolic velocity measurements in the right or lef t internal carotid artery 2. There is normal right antegrade vertebral artery flow. 3. The left vertebral artery is not definitively seen on the examination.
[2018-02-10] MEDS: XALATAN OP SCH (20:57)
[2018-02-10] MEDS ORDERED: TYLENOL PO STA (22:22)
[2018-02-11] MEDS: VALTREX PO SCH (05:34)
[2018-02-11] MEDS: CARAFATE PO SCH (05:34)
[2018-02-11] MEDS: PROTONIX PO SCH (05:34)
[2018-02-11] MEDS: SOLU-MEDROL 40 MG IVP SCH (05:34)
[2018-02-11 06:10] VITALS: TEMP 97.5
[2018-02-11] MEDS: ASPIRIN CHEWABLE PO SCH (08:43)
[2018-02-11] MEDS: ARTIFICIAL TEARS OPTH SOL OP SCH (08:43)
[2018-02-11] MEDS: LANOXIN PO SCH (08:44)
[2018-02-11] MEDS: DILTIAZEM HCL 180 MG PO SCH (08:44)
[2018-02-11] MEDS: ANTIVERT PO PRN (08:44)
[2018-02-11] MEDS: COZAAR PO SCH (08:44)
[2018-02-11] MEDS: NON-FORMULARY MEDICATION (Citalopram Hydrobromide [Celexa] 10 MG) PO SCH (08:45)
[2018-02-11] MEDS: BENTYL PO SCH (08:45)
[2018-02-11] MEDS: CATAPRES PO SCH (08:45)
[2018-02-11] MEDS: NON-FORMULARY MEDICATION (Sotalol Hcl [Betapace] 120 MG) PO SCH (08:45)
[2018-02-11] MEDS: SORBITRATE PO SCH (08:45)
[2018-02-11] MEDS: NON-FORMULARY MEDICATION (Hydralazine Hcl [Hydralazine Hcl] 25 MG) PO SCH (08:45)
[2018-02-11] MEDS: ZYLOPRIM PO SCH (08:45)
--- NOTE | 2018-02-11 09:51 | PN ---
DATE OF SERVICE: 02/10/18 SUBJECTIVE: The patient is still complaining about the weakness, tiredness and having problem swallowing. Not able to wear the dentures. The patient's droopiness is still present on the right side of the face. REVIEW OF SYSTEMS: CONSTITUTIONAL: No fever, no chills. HEENT: Normal. ENDOCRINE: No weight gain, no weight loss. CVS: No angina symptoms. No CHF symptoms. No palpitations. No atypical chest pain for CAD. No shortness of breath. No PND, no orthopnea. RESPIRATORY: No cough, no hemoptysis. GI: No nausea, no vomiting. No abdominal pain. : No hematuria. No polyuria. MUSCULOSKELETAL: No joint swelling. PSYCHIATRIC: Not anxious. No depression. No suicidal thoughts. No homicidal thoughts. SKIN: Intact. No rash. PHYSICAL EXAMINATION: V/S: Blood pressure 154/75, respiratory rate 20, heart rate 65, temperature 97.2 with saturation 99%. HEENT: Normocephalic, atraumatic. Mucosa dry. Pallor positive. No icterus. FACE: Facial deformities is more obvious today. Right side of the face is drooping. Can not close the right eye lid. NECK: Supple. No JVD, no carotid bruit. No lymphadenopathy. LUNGS: Decreased and Clear to auscultation. No rales or rhonchi. HEART: S1, S2 normal. No S3. No murmur, gallop or regurgitation. ABDOMEN: Soft, nontender. Bowel sounds active. No rigidity. No rebound or guarding. No CVA tenderness. EXTREMITIES: No cyanosis, clubbing or pedal edema. MUSCULOSKELETAL: No joint swelling. NEUROLOGIC: Awake, alert. No focal deficit. LYMPHATIC: No lymph nodes palpable. SKIN: Intact. LABS: WBC 11.98, hgb 9, hct 30.5, plt count 234, sodium 136, potassium 4.8, chloride 105, bicarb 23, BUN 20, creatinine 1.01. ASSESSMENT: 1. Ryder's Palsy 2. Urinary tract infection 3. History of CVA 4. Intracranial bleed 5. History of four shunts put in 6. Atrial fibrillation, not on blood thinner 7. COPD 8. Osteoarthritis 9. DJD spine 10.Depression 11.Anxiety PLAN: 1. Will get Carotid ultrasound 2. Physical and Occupational therapy to see and evaluate the patient 3. Continue Solu-Medrol 40mg Q 8 hours 4. Valacyclovir 1,000mg Q 8 hours. TIME SPENT: More than 35 minutes MTDD
[2018-02-11 10:01] VITALS: BP 122/66
--- NOTE | 2018-02-11 20:28 | PCM.HOSP ---
- Observation Care Discharge [id number] OBS Care Discharge (46060): 02/11 - Initial Observation Care [id number] High Complexity 70 Minutes (66999): 02/08 - Subsequent Observation Care [id number] 35 Minutes per Day ([id number]): 02/09. 02/10
--- NOTE | 2018-02-15 11:46 | DS ---
DATE OF SERVICE: 02/11/18 FINAL DIAGNOSIS: 1. Facial palsy 2. Urinary tract infection 3. Dehydration 4. History of CVA 5. Headache 6. Brain shunt 7. History of intracranial bleed 8. CAD 9. Permanent pacemaker insertion 10.Bilateral knee replacement 11.Hip replacement. DISCHARGE INSTRUCTIONS: Discharge the patient home. Continue the medications. Followup in the alf rounds in 4-5 days. Continue CBC and CMP every three months. Lipids, TSH and T4 every 6 months. Fall precautions. Decubitus ulcer precaution per alf protocol. Aspiration precautions. MEDICATIONS AT DISCHARGE: Tylenol Allopurinol Aspirin Cepacol Dulcolax Bumex Fiorinal Zyrtec Citalopram Catapres Bentyl Digoxin Diltazem Ferrous Sulfate Hydralazine Isosorbide Xalatan Bumetanide Cozaar Milk of magnesia Meclizine Betapace Carafate NEW PRESCRIPTIONS: Prednisone 10mg twice a day for 5 more days. Valtrex 1000mg three times a day for 7 days Artificial tears in the right eye twice a day PRN. DIET INSTRUCTIONS: As tolerated. Use straw for drinking as needed. ACTIVITY: Can participate in the alf activity DISEASE SPECIFIC EDUCATION: Ryder's Palsy Risk of dry eyes been discussed. HOSPITAL COURSE: Deric Van 82 year old female who was admitted to the hospital after having weakness and facial drooping on the right side. CT of the head was negative. Ryder's Palsy being diagnosed. The patient started on the steroids. Solu-Medrol 40 Q 12 hours. WBC was 12,000. Urine was leukocyte esterase positive and nitrates negative. Started on the Rocephin 1 gram daily and IV fluids were given. Breathing treatments continued. By next day drooping was more prominent on the right side of the face, had some slurry speech. Did not have any problems swallowing the food. Eye drops was started. Carotid ultrasound did not show any blockage. Urine culture did not grow any organism. As the patient was doing fine and did not have any problems the patient being discharged back to alf. TIME SPENT: MORE THAN 65 MINUTES MTDD
== END 2018-02-11 10:47 ==
LOC: ED 13:10 → MEDSURG B 17:50
PROVIDERS: ADMIT Emergency Medicine; ATTEND Emergency Medicine
DX: G51.0 Bell's palsy (principal); R41.82 Altered mental status, unspecified; N39.0 Urinary tract infection, site not specified; M25.511 Pain in right shoulder; E86.0 Dehydration; D72.829 Elevated white blood cell count, unspecified; R29.810 Facial weakness; R51 Headache
CPT/HCPCS: 36415; 80053; 81001; 84484; 85025; 87086; 99284

== ENCOUNTER 2018-07-08 13:46 | Outpatient (CLI) ==
--- NOTE | 2018-07-08 14:36 | DI ---
EXAM: Two views of the right hip. History: Right hip trauma. Findings: Catheter tubing seen within the pelvis. No acute fracture or dislocation. Moderate to se rose narrowing of the right hip joint with marginal sclerosis and osteophyte formation. Impression: 1. No acute osseous abnormality. 2. 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
--- NOTE | 2018-07-08 14:55 | DI ---
EXAM: Two views of the left hip. History: Left hip trauma. Findings: No acute fracture or dislocation. Catheter tubing seen within the pelvis. Left total hip arthroplasty hardware identified with acetabulae protrusio. Impression: 1. No acute fracture or dislocation. 2. 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
--- NOTE | 2018-07-08 14:55 | DI ---
EXAM: Four views of the left knee. History: Left knee trauma. Findings: No acute fracture or dislocation. Grossly intact left total knee arthroplasty hardware. There are vascular calcifications. Impression: No acute osseous abnormality
--- NOTE | 2018-07-08 14:58 | DI ---
EXAM: Four views of the left femur. History: Left leg trauma. Findings: Mildly displaced fracture of the left inferior pubic ramus. No dislocation. Left hip art hroplasty hardware with acetabular protrusio. Left knee arthroplasty hardware. Vascular calcificati ons. Impression: Fracture of the left inferior pubic ramus
== END 2018-07-08 13:47 | disposition home or self-care (01) ==
LOC: RAD 13:46
PROVIDERS: ATTEND Internal Medicine
DX: R29.6 Repeated falls (principal)

== ENCOUNTER 2018-07-20 11:47 | Emergency (ER) | payer OTHER ==
[2018-07-20 12:00] VITALS: BP 165/60; TEMP 97.8; BMI 33.2
--- NOTE | 2018-07-20 12:56 | ED.PDOC ---
General ED Provider: Dr. HOWARD KOWALSKI Chief Complaint: Fall Stated Complaint: FALL STANDING POSITION. PT STATED SHE LOST HER BALANCE Time Seen by Physician: 12:00 Mode of Arrival: Ambulance Information Source: Patient, Jail, EMT Exam Limitations: No limitations Primary Care Provider: HECTOR [facility]U Nursing and Triage Documentation Reviewed and Agree: Yes Does patient meet sepsis criteria?: No System Inflammatory Response Syndrome: Not Applicable (NO NEURO DEFICITS, ON ARRIVAL ) Sepsis Protocol: For patient's 13 years and over: Temp is 96.8 and below OR 101 and greater Pulse >90 BPM Resp >20/minute Acutely Altered Mental Status Are patient's symptoms suggestive of a new infection, such as: -Pneumonia -Skin, Soft Tissue -Endocarditis -UTI -Bone, Joint Infection -Implantable Device -Acute Abdominal Infection -Wound Infection -Meningitis -Blood Stream Catheter Infection -Unknown Trauma/Injury Complaint Exam - Trauma Complaint/Exam Location of Pain or Injury: Reports: Head, Neck, Back Mechanism of Injury: Reports: Fall Onset/Duration: 3 DAYS AGO WAS THE LAST FALL Symptoms Are: Still present Timing of Treatment: Immediate Initial Severity: Mild Current Severity: Mild Character: Reports: Aching Aggravating: Reports: Movement Alleviating: Reports: Rest Associated Signs and Symptoms: Denies: LOC, Confusion, Memory loss, Lethargy, Vomiting, Bleeding, Bruising, Swelling, Extremity disuse, Painful respiration, Hoarseness, Dysphagia, Hemoptysis, Significant blood loss Related History: Reports: Similar episode ([place] FALLS SHE TRIPPED A FEW TIMES AND FELL) : No Penetrating Injury Risk Factors: Reports: None Related Surgical History: Reports: None Nexus Low Risk Criteria: No evidence of intoxicat., No Altered LOC, No focal neuro deficit, No distracting injuries Immobilization Removed Post Exam: No Glascow Coma Scale (see protocol): 15 Compartment Syndrome Risk Factors: Present: Pain Trauma Findings: Present: Neck tenderness. Absent: [place] eyes, Hemotympanum, Nasal deformity, Dental tenderness, Dental injury, Dental malocclusion, Neck spasm, SubQ Air, Crepitus, Airway obstructed, Trachea displaced, Labored respirations, Decreased breath sounds, Muffled heart sounds, Weak pulses, Absent pulses, Abdominal distention, Pelvic tenderness, Pelvic instability, Perineal blood, Meatal blood, Abnormal rectal tone (ON EXAM HAD NO POINT TNDERNESS ) Skin Findings: Present: Normal findings Differential Diagnoses: Fracture, Sprain, Strain Review of Systems - Review Of Systems Constitutional: Reports: No symptoms Eyes: Reports: No symptoms Ears, Nose, Mouth, Throat: Reports: No symptoms Respiratory: Reports: No symptoms Cardiac: Reports: No symptoms GI: Reports: No symptoms : Reports: No symptoms Musculoskeletal: Reports: Back pain, Neck pain Skin: Reports: No symptoms Neurological: Reports: Headache Endocrine: Reports: No symptoms Hematologic/Lymphatic: Reports: No symptoms All Other Systems: Reviewed and Negative Past Medical History - Past Medical History Previously Healthy: Yes Endocrine: Reports: None Cardiovascular: Reports: CAD, Hypertension, CHF Respiratory: Reports: None Hematological: Reports: None Gastrointestinal: Reports: GERD Genitourinary: Reports: CKD 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) Musculoskeletal: Reports: None Cancer: Reports: None Last Menstrual Period: NA - Surgical History General Surgical History: Reports: Unknown - Family History Family History: Reports: Unknown - Social History Smoking Status: Former smoker Hx Substance Use: No Alcohol Screening: None Physical Exam - Physical Exam Appearance: Well-appearing, No pain distress, Well-nourished Eyes: DOROTHY, EOMI, Conjunctiva clear ENT: Ears normal, Nose normal, Oropharynx normal Respiratory: Airway patent, Breath sounds clear, Breath sounds equal, Respirations nonlabored Cardiovascular: RRR, Pulses normal, No rub, No murmur GI/: Soft, Nontender, No masses, Bowel sounds normal, No Organomegaly Musculoskeletal: Normal strength, ROM intact, No edema, No calf tenderness Skin: Warm, Dry, Normal color Neurological: Sensation intact, Motor intact, Reflexes intact, Cranial nerves intact, Alert, Oriented Psychiatric: Affect appropriate, Mood appropriate Critical Care Note - Critical Care Note Total Time (mins): 0 Course - Course Hematology/Chemistry: 07/20/18 12:10 07/20/18 12:10 Orders, Labs, Meds: Lab Review 07/20/18 07/20/18 07/20/18 12:10 12:10 12:10 WBC 12.02 H RBC 3.72 L Hgb 11.2 L Hct 34.7 L MCV 93.3 MCH 30.1 MCHC 32.3 RDW Coeff of Sue 14.4 Plt Count 341 Immature Gran % (Auto) 0.7 Neut % (Auto) 82.2 Lymph % (Auto) 8.7 L Glenn % (Auto) 6.2 Eos % (Auto) 1.7 Baso % (Auto) 0.5 Immature Gran # (Auto) 0.1 Neut # (Auto) 9.9 H Lymph # (Auto) 1.0 Glenn # (Auto) 0.8 Eos # (Auto) 0.2 Baso # (Auto) 0.1 Sodium 134.6 Potassium 4.15 Chloride 98.5 Carbon Dioxide 32.2 H Anion Gap 8.05 BUN 24.3 H Creatinine 1.11 Estimated GFR (MDRD) 47.00 BUN/Creatinine Ratio 21.89 Glucose 102.7 Lactic Acid Calcium 9.54 Total Bilirubin 0.40 AST 24.3 ALT 27.9 Alkaline Phosphatase 328.5 H Total Protein 6.20 L Albumin 3.51 Globulin 2.69 Albumin/Globulin Ratio 1.30 Procalcitonin < 0.05 Urine Color Urine Clarity Urine pH Ur Specific Bronson Urine Protein Urine Glucose (UA) Urine Ketones Urine Blood Urine Nitrite Urine Bilirubin Urine Urobilinogen Ur Leukocyte Esterase Digoxin 07/20/18 07/20/18 07/20/18 12:10 12:15 12:45 WBC RBC Hgb Hct MCV MCH MCHC RDW Coeff of Sue Plt Count Immature Gran % (Auto) Neut % (Auto) Lymph % (Auto) Glenn % (Auto) Eos % (Auto) Baso % (Auto) Immature Gran # (Auto) Neut # (Auto) Lymph # (Auto) Glenn # (Auto) Eos # (Auto) Baso # (Auto) Sodium Potassium Chloride Carbon Dioxide Anion Gap BUN Creatinine Estimated GFR (MDRD) BUN/Creatinine Ratio Glucose Lactic Acid 0.95 Calcium Total Bilirubin AST ALT Alkaline Phosphatase Total Protein Albumin Globulin Albumin/Globulin Ratio Procalcitonin Urine Color Yellow Urine Clarity Clear Urine pH 6.5 Ur Specific Bronson 1.010 Urine Protein Negative Urine Glucose (UA) Negative Urine Ketones Negative Urine Blood Negative Urine Nitrite Negative Urine Bilirubin Negative Urine Urobilinogen 0.2 Ur Leukocyte Esterase Negative Digoxin 1.73 Orders Category Date Time Status EKG-(ED ONLY) Stat CARDIO 07/20/18 11:54 Completed BLOOD CULTURE (ED ONLY) Stat LAB 07/20/18 12:10 Received CBC W/ AUTO DIFF Stat LAB 07/20/18 12:10 Completed COMPREHENSIVE METABOLIC PANEL Stat LAB 07/20/18 12:10 Completed DIGOXIN Stat LAB 07/20/18 12:15 Completed LACTIC ACID Stat LAB 07/20/18 12:10 Completed PROCALCITONIN Stat LAB 07/20/18 12:10 Completed URINALYSIS C & S IF INDICATED Stat LAB 07/20/18 12:[address] CERVICAL SPINE W/O CONTRAST Stat RADS 07/20/18 11:[address] HEAD W/O CONTRAST Stat RADS 07/20/18 11:[address] LUMBAR SPINE W/O CONTRAST Stat RADS 07/20/18 11:[address] PELVIS W/O CONTRAST Stat RADS 07/20/18 11:54 Completed Vital Signs: Temp Pulse Resp BP Pulse Ox 07/20/18 11:47 97.8 F 60 18 165/60 H 97 Departure - Departure Time of Disposition: 14:17 Disposition: TSF SHORT-TRM HOSP Discharge Problem: Falls Headache Qualifiers: Headache type: unspecified Intractability: not intractable Hip fracture, left Qualifiers: Encounter type: initial encounter Fracture type: closed Qualified Code(s): S72.002A - Fracture of unspecified part of neck of left femur, initial encounter for closed fracture Instructions: Acute Headache (DC) Condition: Good Pt referred to PMD for follow-up: Yes IPMP verified?: No Additional Instructions: Please call your Family Physician as soon as possible to schedule a follow-up appointment. Allergies/Adverse Reactions: Allergies lactose Adverse Reaction (Verified 07/20/18 12:09) Penicillins Adverse Reaction (Verified 07/20/18 12:09) warfarin [From Coumadin] Adverse Reaction (Verified 07/20/18 12:09) Home Medications: Ambulatory Orders Acetaminophen 650 mg PO Q4H PRN 10/11/17 Allopurinol [Zyloprim] 100 mg PO BID 10/11/17 Aspirin [Aspirin Chewable] 81 mg PO DAILYWM 10/11/17 Bisacodyl [Dulcolax] 10 mg RC DAILY PRN 10/11/17 Butalbital/Aspirin/Caffeine [Fiorinal 50-325-40 mg Capsule] 1 each PO Q4H PRN Cetirizine HCl [Zyrtec] 10 mg PO DAILY 10/11/17 Clonidine HCl [Catapres] 0.1 mg PO BID 10/11/17 Dicyclomine HCl [Bentyl] 10 mg PO DAILY 10/11/17 Digoxin [Digox] 125 mcg PO DAILY 10/11/17 Diltiazem HCl [Diltiazem ER] 180 mg PO DAILY 10/11/17 Ferrous Sulfate [Feosol] 325 mg PO BID 10/11/17 Isosorbide Dinitrate [Sorbitrate] 20 mg PO BID NITRATES 10/11/17 Latanoprost [Xalatan] 1 drop RIGHTEYE BEDTIME 10/11/17 Losartan Potassium [Cozaar] 100 mg PO DAILY 10/11/17 Magnesium Hydroxide [Milk of Magnesia] 30 ml PO ONCE PRN 10/11/17 Meclizine HCl [Antivert] 25 mg PO Q8H PRN 10/11/17 Sucralfate [Carafate] 1 gm PO ACHS 10/11/17 Guaifenesin/Dextromethorphan [Guaifenesin Dm Syrup] 5 ml PO QID PRN #100 ml 12/27 Benzocaine/Menthol [Cepacol Sore Throat Lozenge] 1 lozenge MM DIRECTED PRN Bumetanide 2 mg PO DAILY 11/02/17 Citalopram Hydrobromide [Celexa] 10 mg PO DAILY 11/02/17 Hydralazine HCl 25 mg PO BID 11/02/17 Multivitamin with Minerals [Multiple Vitamin] 1 each PO DAILY 11/02/17 Sotalol HCl [Betapace] 120 mg PO BID 11/02/17 Sodium Phosphate,Glenn-Dibasic [Fleet Enema] 1 bottle RC DAILY PRN 02/08/18 Dextran 70/Hypromellose [Artificial Tears Eye Drops] 30 ml OP BID #2 drops 02/11
--- NOTE | 2018-07-20 13:49 | CT ---
EXAM: CT of the head without contrast History: Head trauma. Comparison: Head CT 02/08/2018 Technique: Multiplanar CT images through the head were obtained without the administration of IV con trast Findings: The visualized paranasal sinuses and mastoid air cells are clear in general. No acute david varial abnormalities. Intracranially the ventricular size is stable. No change in the ventriculostomy catheter. No midlin e shift and no hydrocephalus. No acute intracranial hemorrhage or abnormal extraaxial fluid collecti ons. 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 Impression: No acute intracranial process. Stable chronic brain changes.
--- NOTE | 2018-07-20 13:52 | CT ---
EXAM: CT of the pelvis without contrast History: Pelvic trauma. Comparison: Lumbar spine CT 07/20/2018 Technique: Multiplanar CT images through the pelvis were obtained without the administration of IV c ontrast. Findings: No bladder wall thickening. Atherosclerotic vascular calcifications. Atrophic or absent uterus. Left hip arthroplasty hardware. There is a comminuted mild to moderately displaced fracture of the m edial left acetabular wall. There is a moderately displaced fracture of the left inferior pubic christian s with early callus formation. Moderate to severe narrowing of the right hip joint with marginal scl erosis and osteophyte formation. Impression: 1. Fracture of the medial left acetabular wall. 2. Fracture of the left inferior pubic ramus. 3. 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
--- NOTE | 2018-07-20 13:53 | CT ---
Exam: CT cervical spine without intravenous contrast. Comparison: None available. Reason for exam: Fall. FINDINGS: No obvious fracture or listhesis in the cervical spine. There is multilevel degenerative disease with intervertebral body disc space height narrowing and osteophyte formation with straighten ing of the cervical lordotic curve. The dens appears intact. The parent posterior fusion is seen in the upper cervical spine. The prevertebral soft tissues are within normal limits. Impression: 1. No obvious fracture or listhesis in the cervical spine. 2. 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
--- NOTE | 2018-07-20 13:56 | CT ---
EXAM: CT of the lumbar spine without contrast History: Lower back trauma. Comparison: Pelvic CT 07/20/2018 Technique: Multiplanar CT images through the lumbar spine were obtained without the administration o f IV contrast Findings: Atherosclerotic vascular calcifications. 2.5 cm simple cyst within the right kidney. Cho lecystectomy clips. Osteopenia. No acute fracture of the lumbar spine. 3 mm retrolisthesis of L2 on L3 and L3 on L4 is degenerative in nature. Moderate to severe disc space narrowing at L1-L2, L2-L3 and L3-L4 with endpl ate sclerosis and osteophyte formation. Moderate to severe disc space narrowing at L5-S1. T12-L1: No significant bony central canal stenosis or bony neural foraminal narrowing. L1-L2: No significant bony central canal stenosis or bony neural foraminal narrowing. L2-L3: No significant bony central canal stenosis. Moderate right and mild to moderate left bony ne ural foraminal narrowing secondary to ligamentous and facet hypertrophy. L3-L4: No significant bony central canal stenosis. Severe right and moderate to severe left bony ne ural foraminal narrowing secondary to ligamentous and facet hypertrophy. L4-L5: Mild to moderate central canal stenosis. Moderate bilateral bony neural foraminal narrowing secondary to ligamentous and facet hypertrophy. L5-S1: No significant central canal stenosis. Moderate left greater than right bilateral bony neura l foraminal narrowing secondary to ligamentous and facet hypertrophy. Impression: No acute osseous abnormality of the lumbar spine. Degenerative changes
== END 2018-07-20 15:21 | disposition short-term general hospital (02) ==
LOC: ED 11:47
DX: S32.592A Other specified fracture of left pubis, initial encounter for closed fracture (principal); S32.402A Unspecified fracture of left acetabulum, initial encounter for closed fracture; R51 Headache; M54.9 Dorsalgia, unspecified; M54.2 Cervicalgia; R29.6 Repeated falls; W19.XXXA Unspecified fall, initial encounter; Z79.899 Other long term (current) drug therapy; I25.10 Atherosclerotic heart disease of native coronary artery without angina pectoris; I10 Essential (primary) hypertension; N18.9 Chronic kidney disease, unspecified; K21.9 Gastro-esophageal reflux disease without esophagitis; G91.9 Hydrocephalus, unspecified; Z98.2 Presence of cerebrospinal fluid drainage device; R53.1 Weakness; R41.0 Disorientation, unspecified
CPT/HCPCS: 36415; 80053; 80162; 81001; 83605; 84145; 85025; 87040; 93005; 93010; 99285

== ENCOUNTER 2018-12-13 13:33 | Outpatient (CLI) | payer OTHER ==
[2018-12-13 13:54] VITALS: BMI 33.7
== END 2018-12-13 13:38 | disposition critical access hospital (66) ==
LOC: AMBL 13:33
PROVIDERS: ATTEND Emergency Medicine
DX: R05 Cough (principal); R09.89 Other specified symptoms and signs involving the circulatory and respiratory systems

== ENCOUNTER 2018-12-13 13:45 | Emergency (ER) | payer OTHER ==
[2018-12-13 13:54] VITALS: BP 159/62; TEMP 96.9; BMI 33.7
--- NOTE | 2018-12-13 14:01 | ED.PDOC ---
General ED Provider: Dr. MAYKEL PHILLIPS Chief Complaint: Cough Stated Complaint: 83 y old complaining for cough,phlegm yellow,no fever Time Seen by Physician: 13:55 Mode of Arrival: Stretcher Information Source: Patient Exam Limitations: No limitations Primary Care Provider: HECTOR LIU Nursing and Triage Documentation Reviewed and Agree: Yes Does patient meet sepsis criteria?: No System Inflammatory Response Syndrome: Not Applicable Sepsis Protocol: For patient's 13 years and over: Temp is 96.8 and below OR 101 and greater Pulse >90 BPM Resp >20/minute Acutely Altered Mental Status Are patient's symptoms suggestive of a new infection, such as: -Pneumonia -Skin, Soft Tissue -Endocarditis -UTI -Bone, Joint Infection -Implantable Device -Acute Abdominal Infection -Wound Infection -Meningitis -Blood Stream Catheter Infection -Unknown Respiratory Complaint Exam - Asthma Complaint/Exam Onset/Duration: today Symptoms Are: Still present Timing: Constant Initial Severity: Mild Current Severity: Mild Character: Reports: Productive cough Aggravating: Reports: None Alleviating: Reports: None Related History: Reports: Similar episode Related Surgical History: Reports: None Status Asthmaticus Risk Factors: Reports: None Current Asthma Medication Usage: No Recent Antibiotics: No Respiratory Distress: None Accessory Muscle Use: No Retractions: Not Present Diminished Breath Sounds: No Prolonged Expiratory Phase: No Unable to Speak Full Sentences: No Fatigue Present: No Differential Diagnoses: Bronchitis, Pneumonia Review of Systems - Review Of Systems Constitutional: Reports: No symptoms Eyes: Reports: No symptoms Ears, Nose, Mouth, Throat: Reports: No symptoms Respiratory: Reports: Cough Cardiac: Reports: No symptoms GI: Reports: No symptoms : Reports: No symptoms Musculoskeletal: Reports: No symptoms Skin: Reports: No symptoms Neurological: Reports: No symptoms Endocrine: Reports: No symptoms Hematologic/Lymphatic: Reports: No symptoms All Other Systems: Reviewed and Negative Past Medical History - Past Medical History Previously Healthy: Yes Endocrine: Reports: None Cardiovascular: Reports: CAD, Hypertension, CHF Respiratory: Reports: None Hematological: Reports: None Gastrointestinal: Reports: GERD Genitourinary: Reports: CKD 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) Musculoskeletal: Reports: None Cancer: Reports: None Last Menstrual Period: menopause - Surgical History General Surgical History: Reports: Unknown - Family History Family History: Reports: Unknown - Social History Smoking Status: Former smoker Hx Substance Use: No Alcohol Screening: None Physical Exam - Physical Exam Appearance: Well-appearing Ill-appearing: Mild Pain Distress: None Eyes: DOROTHY, EOMI, Conjunctiva clear ENT: Ears normal, Nose normal, Oropharynx normal Neck: Supple Respiratory: Airway patent, Breath sounds clear, Breath sounds equal Cardiovascular: RRR, Tachycardia GI/: Soft, Nontender, No masses, Bowel sounds normal Musculoskeletal: Normal strength, ROM intact, No edema Skin: Warm, Dry, Normal color Neurological: Sensation intact, Motor intact, Reflexes intact, Cranial nerves intact, Alert, Oriented Psychiatric: Affect appropriate Critical Care Note - Critical Care Note Total Time (mins): 0 Course - Course Hematology/Chemistry: 12/13/18 14:20 12/13/18 14:20 Orders, Labs, Meds: Lab Review 12/13/18 12/13/18 14:20 14:20 WBC 10.81 H RBC 3.43 L Hgb 10.6 L Hct 33.7 L MCV 98.3 MCH 30.9 MCHC 31.5 L RDW Coeff of Sue 16.3 H Plt Count 243 Immature Gran % (Auto) 0.6 Neut % (Auto) 79.3 Lymph % (Auto) 10.8 [place] % (Auto) 6.8 Eos % (Auto) 2.0 Baso % (Auto) 0.5 Immature Gran # (Auto) 0.1 Neut # (Auto) 8.6 H Lymph # (Auto) 1.2 [place] # (Auto) 0.7 Eos # (Auto) 0.2 Baso # (Auto) 0.1 Sodium 137.4 Potassium 4.16 Chloride 102.3 Carbon Dioxide 27.3 Anion Gap 11.96 BUN 11.3 Creatinine 0.75 Estimated GFR (MDRD) 74.00 BUN/Creatinine Ratio 15.06 Glucose 103.9 Calcium 9.79 Total Bilirubin 0.50 AST 22.4 ALT 18.0 Alkaline Phosphatase 158.7 H Total Protein 5.98 L Albumin 3.73 Globulin 2.25 Albumin/Globulin Ratio 1.65 Orders Category Date Time Status CBC W/ AUTO DIFF Stat LAB 12/13/18 14:20 Completed COMPREHENSIVE METABOLIC PANEL Stat LAB 12/13/18 14:20 Completed URINALYSIS C & S IF INDICATED Stat LAB 12/13/18 14:10 Uncollected CHEST, 1V AP ONLY Stat RADS 12/13/18 14:07 Completed Vital Signs: Temp Pulse Resp BP Pulse Ox 12/13/18 13:46 96.9 F L 68 22 159/62 H 91 L Departure - Departure Time of Disposition: 16:35 Disposition: HOME SELF-CARE Discharge Problem: Pneumonia Instructions: Bacterial Pneumonia (ED) Condition: Stable Pt referred to PMD for follow-up: Yes IPMP verified?: No Additional Instructions: Levofloxacin 500 mg qd x 5 days/Albut[place]o inhaler bid Allergies/Adverse Reactions: Allergies lactose Adverse Reaction (Verified 12/13/18 13:57) Penicillins Adverse Reaction (Verified 12/13/18 13:57) warfarin [From Coumadin] Adverse Reaction (Verified 12/13/18 13:57) Home Medications: Ambulatory Orders Acetaminophen 650 mg PO Q4H PRN 10/11/17 Allopurinol [Zyloprim] 100 mg PO BID 10/11/17 Aspirin [Aspirin Chewable] 81 mg PO DAILYWM 10/11/17 Bisacodyl [Dulcolax] 10 mg RC DAILY PRN 10/11/17 Butalbital/Aspirin/Caffeine [Fiorinal 50-325-40 mg Capsule] 1 each PO Q4H PRN Cetirizine HCl [Zyrtec] 10 mg PO DAILY 10/11/17 Clonidine HCl [Catapres] 0.1 mg PO BID PRN 10/11/17 Dicyclomine HCl [Bentyl] 10 mg PO DAILY 10/11/17 Digoxin [Digox] 125 mcg PO DAILY 10/11/17 Diltiazem HCl [Diltiazem ER] 180 mg PO DAILY 10/11/17 Isosorbide Dinitrate [Sorbitrate] 20 mg PO BID NITRATES 10/11/17 Latanoprost [Xalatan] 1 drop RIGHTEYE BEDTIME 10/11/17 Losartan Potassium [Cozaar] 100 mg PO DAILY 10/11/17 Magnesium Hydroxide [Milk of Magnesia] 30 ml PO ONCE PRN 10/11/17 Meclizine HCl [Antivert] 25 mg PO Q8H PRN 10/11/17 Guaifenesin/Dextromethorphan [Guaifenesin Dm Syrup] 5 ml PO QID PRN #100 ml 12/27 Benzocaine/Menthol [Cepacol Sore Throat Lozenge] 1 lozenge MM DIRECTED PRN Bumetanide 2 mg PO DAILY 11/02/17 Citalopram Hydrobromide [Celexa] 10 mg PO DAILY 11/02/17 Hydralazine HCl 50 mg PO BID 11/02/17 Multivitamin with Minerals [Multiple Vitamin] 1 each PO DAILY 11/02/17 Sotalol HCl [Betapace] 120 mg PO BID 11/02/17 Dextran 70/Hypromellose [Artificial Tears Eye Drops] 30 ml OP BID #2 drops 02/11 Atorvastatin Calcium 20 mg PO BEDTIME 12/13/18 Hydrocodone/Acetaminophen [Hydrocodon-Acetaminoph 7.5-325] 1 each PO Q4HR PRN Omeprazole 40 mg PO DAILY 12/13/18 Disposition Discussed With: Patient
--- NOTE | 2018-12-13 15:16 | DI ---
EXAM: Single view of the chest. History: Cough. Comparison: Chest radiograph 11/02/2017 Findings: Heart is enlarged. Interstitial edema and left greater than right bilateral pleural effus ions. Bibasilar consolidation. No pneumothorax. Pacer device. Atherosclerotic vascular calcificat ions. Shunt catheter tubing is seen on the right. No acute osseous abnormalities. Impression: 1. Cardiomegaly with interstitial edema and left greater than right bilateral pleural effusions. 2. Bibasilar pneumonia
[2018-12-13] MEDS ORDERED: ROCEPHIN 1 GM in SODIUM CHLORIDE 50 ML IV STA (16:30)
[2018-12-13] MEDS ORDERED: LIDOCAINE HCL 1% SDV IM STA (16:57)
[2018-12-13] MEDS ORDERED: ROCEPHIN IM STA (16:57)
== END 2018-12-13 17:30 ==
LOC: ED 13:45
DX: J18.9 Pneumonia, unspecified organism (principal); R00.0 Tachycardia, unspecified; I10 Essential (primary) hypertension; I25.10 Atherosclerotic heart disease of native coronary artery without angina pectoris; N18.9 Chronic kidney disease, unspecified; Z79.899 Other long term (current) drug therapy; Z87.19 Personal history of other diseases of the digestive system
CPT/HCPCS: 36415; 80053; 85025; 96372; 99283

== ENCOUNTER 2018-12-16 10:51 | Inpatient (IN) ==
[2018-12-16 11:39] VITALS: BMI 33.1
[2018-12-16] MEDS ORDERED: NITROSTAT SL PRN (11:59)
[2018-12-16] MEDS ORDERED: ATROPINE SULFATE PFS IVP PRN (11:59)
[2018-12-16] MEDS ORDERED: VISTARIL INJ IM PRN (11:59)
[2018-12-16] MEDS ORDERED: TYLENOL PO PRN ×2 (11:59→12:07)
[2018-12-16] MEDS ORDERED: LEVAQUIN 500 MG in PREMIX 100 ML D5W 1 BAG IV SCH (12:05)
[2018-12-16] MEDS ORDERED: CEPACOL SORE THROAT LOZENGE MUCOUSMEMB PRN (12:07)
[2018-12-16] MEDS ORDERED: ANTIVERT PO PRN (12:07)
[2018-12-16] MEDS ORDERED: MILK OF MAGNESIA PO PRN (12:07)
[2018-12-16] MEDS ORDERED: CATAPRES PO PRN (12:07)
[2018-12-16] MEDS ORDERED: BUTALBITAL PO PRN (12:07)
[2018-12-16] MEDS ORDERED: [UNRECOGNIZED DRUG - OTHER] PO PRN (12:07)
[2018-12-16] MEDS ORDERED: ROBITUSSIN DM SYRUP PO PRN (12:07)
[2018-12-16] MEDS ORDERED: IMODIUM PO PRN (12:07)
[2018-12-16] MEDS ORDERED: ASPIRIN PO PRN (12:07)
[2018-12-16] MEDS ORDERED: HYPROMELLOSE OP PRN ×2 (12:07→13:20)
[2018-12-16] MEDS ORDERED: DULCOLAX RC PRN (12:07)
[2018-12-16] MEDS ORDERED: CAFFEINE PO PRN (12:07)
[2018-12-16] MEDS ORDERED: DEXTRAN 70 OP PRN ×2 (12:07→13:20)
[2018-12-16] MEDS ORDERED: NON-FORMULARY MEDICATION (Bumetanide [Bumetanide] 2 MG) PO PRN (12:07)
[2018-12-16] MEDS ORDERED: FIORICET PO PRN (13:01)
[2018-12-16] MEDS ORDERED: BUMEX PO PRN ×2 (13:01→14:30)
[2018-12-16] MEDS: SOLU-CORTEF 250 MG IVP SCH ×2 (14:34→20:33)
[2018-12-16] MEDS: SODIUM CHLORIDE 1,000 ML IV SCH (14:41)
--- NOTE | 2018-12-16 14:51 | CT ---
EXAM: CT of the chest with and without contrast History: Short of breath and cough. Comparison: Chest radiograph 12/13/2018, chest CT 10/11/2017 Technique: Multiplanar CT images through the thorax were obtained with and without the administratio n of IV contrast Findings: Heart is enlarged. Coronary calcifications and aortic valve calcifications. No pericardi al effusion. No axillary lymphadenopathy. Great vessels are unremarkable. No pathologically enlarg ed mediastinal or hilar lymph nodes. There is interstitial pulmonary edema and moderate to large stacey ateral pleural effusions. Bibasilar atelectasis and pneumonia. No pneumothorax. Moderate hiatal hernia. 2.8 cm simple right renal cyst. No acute osseous abnormalities. Impression: 1. Cardiomegaly with pulmonary edema and moderate bilateral pleural effusions. 2. Bibasilar atelectasis and pneumonia. 3. Moderate hiatal hernia
[2018-12-16] MEDS: NORCO 7.5-325 PO PRN (16:28)
[2018-12-16] MEDS: XOPENEX 1.25 MG NEB SCH ×2 (16:55→23:05)
[2018-12-16] MEDS: PULMICORT 0.5 MG/2 ML NEB SCH (16:55)
[2018-12-16] MEDS: FIORICET PO PRN (20:37)
[2018-12-16] MEDS: LIPITOR PO SCH (20:38)
[2018-12-16] MEDS: APRESOLINE PO SCH (20:39)
[2018-12-16] MEDS: SORBITRATE PO SCH (20:39)
[2018-12-16] MEDS: BETAPACE PO SCH (20:40)
[2018-12-16] MEDS: ZYLOPRIM PO SCH (20:40)
[2018-12-16] MEDS: XALATAN OP SCH (20:52)
[2018-12-16] MEDS ORDERED: NON-FORMULARY MEDICATION (Hydralazine Hcl [Hydralazine Hcl] 50 MG) PO SCH (21:00)
[2018-12-16] MEDS ORDERED: NON-FORMULARY MEDICATION (Sotalol Hcl [Betapace] 120 MG) PO SCH (21:00)
[2018-12-17] MEDS: SODIUM CHLORIDE 1,000 ML IV SCH ×2 (03:56→17:19)
[2018-12-17] MEDS: SOLU-CORTEF 250 MG IVP SCH ×3 (03:58→20:37)
[2018-12-17] MEDS: XOPENEX 1.25 MG NEB SCH ×4 (04:45→23:10)
[2018-12-17] MEDS: PULMICORT 0.5 MG/2 ML NEB SCH ×2 (04:45→16:15)
[2018-12-17] MEDS: PRILOSEC PO SCH (05:54)
[2018-12-17] MEDS ORDERED: ASPIRIN EC PO SCH (08:00)
[2018-12-17] MEDS: COZAAR PO SCH (08:27)
[2018-12-17] MEDS: SORBITRATE PO SCH ×2 (08:27→20:38)
[2018-12-17] MEDS: LEVAQUIN 500 MG in PREMIX 100 ML D5W 1 BAG IV SCH (08:27)
[2018-12-17] MEDS: BENTYL PO SCH (08:27)
[2018-12-17] MEDS: CARDIZEM CD PO SCH (08:27)
[2018-12-17] MEDS: ASPIRIN CHEWABLE PO SCH (08:30)
[2018-12-17] MEDS: MULTIVITAMIN TABLET PO SCH (08:31)
[2018-12-17] MEDS: ZYLOPRIM PO SCH ×2 (08:31→20:38)
[2018-12-17] MEDS: BETAPACE PO SCH ×2 (08:31→20:38)
[2018-12-17] MEDS: CLARITIN PO SCH (08:31)
[2018-12-17] MEDS: APRESOLINE PO SCH ×2 (08:32→20:38)
[2018-12-17] MEDS: LANOXIN PO SCH (08:35)
[2018-12-17] MEDS ORDERED: NON-FORMULARY MEDICATION (Omeprazole [Omeprazole] 40 MG) PO SCH (09:00)
[2018-12-17] MEDS ORDERED: CITALOPRAM HYDROBROMIDE 5 MG PO SCH (09:00)
[2018-12-17] MEDS ORDERED: DILTIAZEM HCL 180 MG PO SCH (09:00)
[2018-12-17] MEDS ORDERED: MULTIVITAMIN WITH MINERALS PO SCH (09:00)
[2018-12-17] MEDS ORDERED: NON-FORMULARY MEDICATION (Cetirizine Hcl [Zyrtec] 10 MG) PO SCH (09:00)
[2018-12-17] MEDS ORDERED: CELEXA PO SCH (09:00)
[2018-12-17] MEDS: FIORICET PO PRN (19:44)
[2018-12-17] MEDS: LIPITOR PO SCH (20:38)
[2018-12-17] MEDS: XALATAN OP SCH (20:39)
[2018-12-18] MEDS: XOPENEX 1.25 MG NEB SCH ×4 (04:55→23:15)
[2018-12-18] MEDS: PULMICORT 0.5 MG/2 ML NEB SCH ×2 (04:55→16:50)
[2018-12-18] MEDS: PRILOSEC PO SCH (05:39)
[2018-12-18] MEDS: SOLU-CORTEF 250 MG IVP SCH ×3 (05:39→20:24)
[2018-12-18] MEDS: SODIUM CHLORIDE 1,000 ML IV SCH ×2 (05:41→20:22)
[2018-12-18] MEDS: LEVAQUIN 500 MG in PREMIX 100 ML D5W 1 BAG IV SCH (08:39)
[2018-12-18] MEDS: ASPIRIN CHEWABLE PO SCH (08:39)
[2018-12-18] MEDS: BETAPACE PO SCH ×2 (08:39→20:23)
[2018-12-18] MEDS: MULTIVITAMIN TABLET PO SCH (08:40)
[2018-12-18] MEDS: LANOXIN PO SCH (08:40)
[2018-12-18] MEDS: CARDIZEM CD PO SCH (08:40)
[2018-12-18] MEDS: SORBITRATE PO SCH ×2 (08:40→20:23)
[2018-12-18] MEDS: APRESOLINE PO SCH ×2 (08:40→20:22)
[2018-12-18] MEDS: COZAAR PO SCH (08:40)
[2018-12-18] MEDS: CLARITIN PO SCH (08:41)
[2018-12-18] MEDS: ZYLOPRIM PO SCH ×2 (08:41→20:23)
[2018-12-18] MEDS: BENTYL PO SCH (08:41)
[2018-12-18] MEDS: LIPITOR PO SCH (20:23)
[2018-12-18] MEDS: XALATAN OP SCH (21:14)
[2018-12-19] MEDS: XOPENEX 1.25 MG NEB SCH ×4 (04:50→23:30)
[2018-12-19] MEDS: PULMICORT 0.5 MG/2 ML NEB SCH ×2 (04:50→17:07)
[2018-12-19] MEDS: SOLU-CORTEF 250 MG IVP SCH (05:46)
[2018-12-19] MEDS: PRILOSEC PO SCH (05:46)
--- NOTE | 2018-12-19 08:27 | PCM.PROG ---
Attending Provider: ATTENDING PROVIDER: Dr. HECTOR LIU This patient is seen with Petty Anderson, Nurse Practitioner. DATE OF SERVICE: 12/19/18 SUBJECTIVE: This 83 year old WHITE/ F was hospitalized 12/16/18. The patient is resting comfortably. Her cough has improved. Still feeling very . She has been eating well. REVIEW OF SYSTEMS: CONSTITUTIONAL: No night sweats. No fatigue, malaise, lethargy. No fever or chills. HEENT: Eyes: No visual changes. No eye pain. No eye discharge. ENT: No runny nose. No epistaxis. No sinus pain. No odynophagia. No congestion. RESPIRATORY: Cough, no congestion. No hemoptysis. No shortness of breath. CARDIOVASCULAR: No angina symptoms. No CHF symptoms. No atypical chest pain for CAD. No palpitations. No orthopnea.. GASTROINTESTINAL: No abdominal pain. No nausea or vomiting. No diarrhea or constipation. No hematemesis. No hematochezia. GENITOURINARY: No urgency. No frequency. No dysuria. No hematuria. No obstructive symptoms. No discharge. No pain. No significant abnormal bleeding. MUSCULOSKELETAL: No musculoskeletal pain; no joint swelling. Weakness. NEUROLOGICAL: Awake, alert, oriented to time, place and person. No headache. No neck pain. No syncope. No seizures. No dizziness. PSYCHIATRIC: Not anxious. No depression. No suicidal thoughts. No homicidal thoughts. SKIN: No rash. No lesions. No wounds. ENDOCRINE: No unexplained weight loss. No weight gain. HEMATOLOGIC/LYMPHATIC: No anemia. No purpura. No petechiae. No prolonged or excessive bleeding. No palpable lymph nodes. PHYSICAL EXAMINATION: GENERAL: The patient is awake, alert and oriented, lying in bed in no distress. VITAL SIGNS: Temperature 97.9 F, Pulse 62, Respiratory Rate 18, BP 140/72, Pulse Ox 99% HEENT: Head normocephalic, atraumatic. Eyes: Extraocular muscles are intact. Pupils are equal, round and reactive to light and accommodation. Ears: No lesions. Nose appeared normal. Throat: No exudate or erythema. NECK: Supple. No JVD, no carotid bruit. No lymphadenopathy or thyromegaly. LUNGS: Decreased breath sounds. Clear to auscultation. Percussion note normal. Chest symmetrical. HEART: S1, S2, no S3. No murmurs. No cyanosis or clubbing. No ascites. Pulses: Dorsalis pedis and posterior tibial pulses +1 to +2 both sides. ABDOMEN: Soft. Non-tender. Bowel sounds active. No CVA tenderness. No mass felt. EXTREMITIES: No edema. Full range of motion of all extremities, equal. NEUROLOGIC: No focal deficit. Cranial nerves II through XII are grossly intact. No headache, no double vision or headache. SKIN: Not dry. Intact. Turgor-normal. LYMPHATIC: No palpable lymph nodes/no lymphedema. MUSCULOSKELETAL: Normal joints with no swelling. Muscle tone is normal. LAB REVIEW: 12/19/18 05:05 12/19/18 05:05 12/19/18 05:05: Sodium 137.4, Potassium 4.20, Chloride 105.6, Carbon Dioxide 26.0, Anion Gap 10.00, BUN 11.7, Creatinine 0.74, Estimated GFR (MDRD) 75.00, BUN/Creatinine Ratio 15.81, Glucose 119.9 H, Calcium 9.45, Total Bilirubin 0.25 , AST 24.3, ALT 20.9, Alkaline Phosphatase 121.3, Total Protein 5.79 L, Albumin 3.74, Globulin 2.05, Albumin/Globulin Ratio 1.82 12/19/18 05:05: WBC 10.42 H, RBC 3.45 L, Hgb 10.7 L, Hct 33.8 L, MCV 98.0, MCH 31.0, MCHC 31.7 L, RDW Coeff of Sue 16.5 H, Plt Count 241, Immature Gran % (Auto ) 0.9, Neut % (Auto) 88.6, Lymph % (Auto) 5.1 L, [place] % (Auto) 5.3, Eos % (Auto ) 0.0, Baso % (Auto) 0.1, Immature Gran # (Auto) 0.1, Neut # (Auto) 9.2 H, Lymph # (Auto) 0.5 L, [place] # (Auto) 0.6, Eos # (Auto) 0.0, Baso # (Auto) 0.0 ASSESSMENT: Please see below. 1. Bi-basilar pneumonia 2. Atrial fibrillation, Eliquis was discontinued several years ago due to GI bleed, risk of falls and age. Risks outweigh benefit of Eliquis. PLAN: 1. Discontinue IV fluids 2. Repeat chest x-ray 3. Discontinue Solu-Cortef 4. Digoxin Level Plan and coordination of the patient's care discussed in the presence of Compound Coating Machine Offbearer and nurse. SCRIBED BY: Simi JEFFREY scribed while in presence of service performed by Dr. Liu/Petty Anderson APRN on 12/19/18 ([id number])
[2018-12-19] MEDS: BETAPACE PO SCH ×2 (09:03→20:25)
[2018-12-19] MEDS: APRESOLINE PO SCH ×2 (09:04→20:27)
[2018-12-19] MEDS: ASPIRIN CHEWABLE PO SCH (09:04)
[2018-12-19] MEDS: CARDIZEM CD PO SCH (09:04)
[2018-12-19] MEDS: COZAAR PO SCH (09:04)
[2018-12-19] MEDS: MULTIVITAMIN TABLET PO SCH (09:04)
[2018-12-19] MEDS: BENTYL PO SCH (09:05)
[2018-12-19] MEDS: ZYLOPRIM PO SCH ×2 (09:05→20:26)
[2018-12-19] MEDS: LANOXIN PO SCH (09:05)
[2018-12-19] MEDS: CLARITIN PO SCH (09:05)
[2018-12-19] MEDS: SORBITRATE PO SCH ×2 (09:05→20:26)
[2018-12-19] MEDS ORDERED: LEVAQUIN 100 ML IV ONE (09:12)
[2018-12-19] MEDS: LEVAQUIN 500 MG in PREMIX 100 ML D5W 1 BAG IV SCH (09:14)
--- NOTE | 2018-12-19 10:33 | DI ---
EXAM: CHEST FRONTAL VIEW HISTORY: Pneumonia. COMPARISON: 12/13/2018 FINDINGS: Cardiomegaly is again noted. Low lung volumes. Bibasilar atelectasis is likely. Left-si ded pacemaker unit is stable. There is moderate atherosclerotic disease. Moderate central vascular congestion and interstitial infiltrate/edema. Small pleural effusions. No pneumothorax. IMPRESSION: 1. Findings suggestive of fluid overload or congestive heart failure. This has not improved and may be slightly worse since previous exam.
--- NOTE | 2018-12-19 10:37 | ECHO2D ---
Date of Exam: 12/18/18 Ordering Physician: HECTOR PEREZ Room #: 102 Reason for Echo: CHF, PACEMAKER M-Mode Normal Adult Results LV Dimensions Normal Adult Results AoV Opening excursions >1.6 >1.6 LVEDD-base- 3.5-5.8 3.9 Ao root dimensions 2.0-3.7 2.9 LVESD-base- 3.1-4.6 L. Atrium dimensions 1.9-3.8 4.8 Post. Wall thickness 0.8-1.1 1.1 IV septum (thickness) 0.7-1.2 1.1 Post. Wall excursion 0.72-1.3 NORMAL Septal motion 0.6 Systolic motion R. Ventricular cavity 1.5-2.0 3.0 LVEF 60% 60% Paradoxical septal wall motion NORMAL 2-D : 2-D M Mode Echocardiogram was performed using apical four chamber and left parasternal long and short axis views. Mitral, tricuspid and aortic valves appear to be normal. Contractility of the left ventricle seems to be normal, so is the cavity size. ENLARGED LEFT ATRIAL CAVITY. HYPOKINETIC SEPTUM . Aortic root appears to be normal. There is no pericardial effusion. There is no thrombus noted in the left ventricular or left aortic cavity. No mitral valve prolapse noted. COLOR FLOW: MODERATE MITRAL REGURGITATION AND TRICUSPID REGURGITATION M-MODE: MV: NORMAL AV: NORMAL TV: NORMAL PV: CHAMBER SIZE: ENLARGED LEFT ATRIAL AND RIGHT VENTRICLE CAVITIES WALL MOTION: MILDLY HYPOKINETIC SEPTUM PERICARDIUM: NORMAL INTERPRETATION: 1. BORDERLINE LEFT VENTRICULAR HYPERTROPHY 2. ENLARGED LEFT ATRIAL AND RIGHT VENTRICLE CAVITIES 3. MODERATE MITRAL REGURGITATION AND TRICUSPID REGURGITATION 4. MILDLY HYPOKINETIC SEPTUM WITH EJECTION FRACTION 60% MTDD
--- NOTE | 2018-12-19 11:44 | PN ---
DATE OF SERVICE: 12/16/18 SUBJECTIVE: The patient was seen and examined with Nurse Practitioner. She was direct admission from skilled nursing for pneumonia and CHF. The patient's management was planned out with IV Lasix, antibiotics, echocardiogram to evaluate LV function. The patient was very happy to be hospitalized as she has been suffering from bronchitis for a while. She was seen in the emergency room at [facility] a few days ago and was discharged home. Condition didn't improve although it didn't worsen so the patient has been hospitalized for further treatment of pneumonia and CHF and evaluate LV function. She may need physical therapy. TIME SPENT: More than 30 minutes. Plan and coordination of the patient's care discussed in the presence of nurse. ANAND
--- NOTE | 2018-12-19 11:59 | PN ---
DATE OF SERVICE: 12/17/18 SUBJECTIVE: 83 year old white female hospitalized with pneumonia, shortness of breath and possibility of CHF. The patient this morning says that she is feeling a lot better. She is sitting up in the chair and ready for the breakfast. REVIEW OF SYSTEMS: CONSTITUTIONAL: No night sweats. No fatigue, malaise, lethargy. No fever or chills. HEENT: Eyes: No visual changes. No eye pain. No eye discharge. ENT: No runny nose. No epistaxis. No sinus pain. No sore throat. No odynophagia. No congestion. RESPIRATORY: Mild cough with congestion. No hemoptysis. No shortness of breath. CARDIOVASCULAR: No angina symptoms. No CHF symptoms. No atypical chest pain for CAD. No palpitations. No PND. No orthopnea. GASTROINTESTINAL: No abdominal pain. No nausea or vomiting. No diarrhea or constipation. No hematemesis. No hematochezia. GENITOURINARY: No urgency. No frequency. No dysuria. No hematuria. No obstructive symptoms. No discharge. No pain. No significant abnormal bleeding. MUSCULOSKELETAL: No musculoskeletal pain; no joint swelling. NEUROLOGICAL: No headache. No neck pain. No syncope. No seizures. No dizziness. PSYCHIATRIC: Not anxious. No depression. No suicidal thoughts. No homicidal thoughts. SKIN: No rash. No lesions. No wounds. ENDOCRINE: No unexplained weight loss. No weight gain. HEMATOLOGIC/LYMPHATIC: No anemia. No purpura. No petechiae. No prolonged or excessive bleeding. No palpable lymph nodes. PHYSICAL EXAMINATION: VITAL SIGNS: Temperature 98.9, pulse 62, respiratory rate 22, blood pressure 170 /80 and pulse ox 97. HEENT: Head normocephalic, atraumatic. Eyes: Extraocular muscles are intact. Pupils are equal, round and reactive to light and accommodation. Ears: No lesions. Nose appeared normal. Throat: No exudate or erythema. NECK: Supple. No JVD, no carotid bruit. No lymphadenopathy or thyromegaly. LUNGS: Decreased breath sounds but clear to auscultation. Percussion note normal. Chest symmetrical. HEART: S1, S2, no S3. No murmurs. No cyanosis or clubbing. No ascites. Pulses: Dorsalis pedis and posterior tibial pulses +1 to +2 bilaterally. ABDOMEN: Soft. Nontender. Bowel sounds active. No CVA tenderness. No mass felt. EXTREMITIES: No edema. Full range of motion of all extremities, equal. NEUROLOGIC: No focal deficit. Cranial nerves II through XII are grossly intact. No headache, no double vision or headache. SKIN: Not dry. Intact. Turgor - normal. LYMPHATIC: No palpable lymph nodes/no lymphedema. MUSCULOSKELETAL: Normal joints with no swelling. Muscle tone is normal. LABS: Hgb 9.5, hct 30, WBC 7,600 normal differential, creatinine 0.6, BUN 9, potassium 3.8. ASSESSMENT: 1. Pneumonia, seems to be clinically under control 2. CHF seems to be under control 3. Hypertension somewhat out of control but the patient is to be continued on multiple medications for the blood pressure. Right now we are not going to change anything. Continue Losartan, Hydralazine and Clonidine PLAN: 1. Lanoxin level to be done tomorrow 2. The patient is going to need an echocardiogram to evaluate LV function 3. Pacemaker seems to be working and functioning well. Underline rhythm could be atrial fibrillation. We are going to discuss this with the patient about blood thinner like Eliquis, Pradaxa or Xarelto or Coumadin but the patient has declined. She says that she is feeling well and she is not going to take blood thinners. The patient is advised to evaluate it and consider strong blood thinners. 4. Atrial fibrillation discussed with the complication. CONDITION: Stable. TIME SPENT: More than 30 minutes. Plan and coordination of the patient's care discussed in the presence of nurse. ANAND
--- NOTE | 2018-12-19 12:57 | HP ---
DATE OF SERVICE: 12/16/18 REASON FOR HOSPITALIZATION/HISTORY OF PRESENT ILLNESS: The patient has coughing with shortness of breath. Chest x-ray 12/13 showed bibasilar pneumonia. PAST MEDICAL HISTORY/PAST SURGICAL HISTORY: CHF CKD Pacemaker Hypercholesterolemia Atrial fibrillation Hypertension Edema CVA Brain shunt Headaches COPD Rheumatoid arthritis Bilateral knee and hip replacement Depression Anxiety REVIEW OF SYSTEMS: CONSTITUTIONAL: No fever, Fatigue. HEENT: No sinus drainage, no sore throat. RESPIRATORY: Cough yellow, no congestion. CARDIOVASCULAR: No atypical chest pain for coronary artery disease. No angina , CHF symptoms, palpitations. Shortness of breath. GASTROINTESTINAL: No melena or abdominal pain. No GERD. GENITOURINARY: No hematuria, no prostatism, no polyuria. COAT PADDER: No blackout, no dizziness, no headache, no double vision. MUSCULOSKELETAL: Osteoarthritis pain, no joint swelling. ENDOCRINE: No weight loss, no weight gain. SKIN: Not dry, no rash. PSYCHIATRIC: Not anxious, no depression, no suicidal thoughts, no homicidal thoughts. SOCIAL HISTORY: Marital Status: . Alcohol Usage: No. Tobacco Usage: No. FAMILY HISTORY: The patient is unable to provide family history. MEDICATIONS: Antivert 25mg PO Q 8 hours PRN Dulcolax 10mg RC daily PRN Acetaminophen 650mg PO Q 4 hours PRN Sorbitrate 20mg PO twice a day Zyloprim 100mg PO twice a day Diltiazem ER 180mg PO daily Digoxin 125mcg PO daily Cozaar 100mg Po daily Bentyl 10mg Po daily Zyrtec 10mg PO daily Aspirin 81mg PO daily Catapres 0.1mg PO twice a day PRN Xalatan 1 drop right eye bedtime Milk of Magnesia 30ml PO once PRN Guaifenesin DM syrup 5mlPO four times a day PRN Cepacol Sore Throat one MM as directed PRN Multiple Vitamin one each PO daily Celexa 5mg PO daily Betapace 120mg PO twice a day Hydralazine 50mg Po twice a day Bumetanide 2mg PO daily PRN Atorvastatin 20mg PO bedtime Omeprazole 40mg PO daily Hydrocodone-Acetaminophen 7.5-325 one each PO Q 4 hours PRN Imodium 2mg PO Q 12 hours PRN Levaquin 500mg PO daily Fioricet one each Q 4 hours PRN Artificial tears eyes drops 30ml OP twice a day PRN ALLERGIES: Lactose Penicillins Warfarin PHYSICAL EXAMINATION: V/S: Pulse 56, blood pressure 168/84, temperature 98.6, pulse ox 90% on room air. GENERAL APPEARANCE: Oriented times three. HEENT: Normal. NECK: No JVP, no bruits. RESPIRATORY: Decreased breath sounds with inspiratory and expiratory wheezing. CARDIOVASCULAR: S1, S2, no S3, no murmurs. No cyanosis, clubbing. No ascites. GI/ABDOMEN: No tenderness. Bowel sounds are active. EXTREMITIES: Trace edema, pulses +1, equal. COAT PADDER: Deep tendon reflexes, sensory, motor and gait all normal. ASSESSMENT: 1. Bilateral pneumonia 2. Shortness of breath 3. Rheumatoid arthritis 4. Polyarthritis 5. History of falls 6. History of fracture pubis, left 7. Chronic kidney disease, stage 3 8. History of left hip fracture 9. Hypertension 10.Muscle weakness 11.CHF 12.COPD 13.Recurrent gout 14.Dyslipidemia 15.Leg edema 16.Anxiety 17.Depression 18.CAD 19.History of paroxysmal atrial fibrillation. PLAN: 1. Admit 2. Continue all home medications except Levaquin 3. Routine telemetry orders 4. CBC/CMP now and daily 5. Xopenex NEBS Q 6 hours scheduled 6. Oxygen at 1-2 liters nasal cannula 7. ABG on room air now 8. CT of chest with and without contrast 9. Nasal cannula IV at 75cc an hour 10.Levaquin 500mg IV daily 11.Pulmicort NEB 0.5mg twice a day 12.Solu-Cortef 125mg IV Q 8 hours 13.Regular diet 14.Fall precautions. TIME SPENT: More than 70 minutes. MTDD
[2018-12-19] MEDS ORDERED: LASIX IVP STA (13:55)
[2018-12-19] MEDS: NORCO 7.5-325 PO PRN (14:20)
[2018-12-19] MEDS: PREDNISONE PO SCH (17:18)
[2018-12-19] MEDS: LIPITOR PO SCH (20:25)
[2018-12-19] MEDS: XALATAN OP SCH (21:38)
[2018-12-20] MEDS: PULMICORT 0.5 MG/2 ML NEB SCH ×2 (04:45→17:49)
[2018-12-20] MEDS: XOPENEX 1.25 MG NEB SCH ×4 (04:45→22:38)
[2018-12-20] MEDS ORDERED: LASIX IVP ONE (05:30)
[2018-12-20] MEDS ORDERED: LASIX ONE (05:55)
[2018-12-20] MEDS: PRILOSEC PO SCH (06:00)
--- NOTE | 2018-12-20 08:28 | PCM.PROG ---
Attending Provider: ATTENDING PROVIDER: Dr. HECTOR LIU This patient is seen with Petty Anderson, Nurse Practitioner. DATE OF SERVICE: 12/20/18 SUBJECTIVE: This 83 year old WHITE/ F was hospitalized 12/16/18. Her legs have significantly improved after IV Lasix. Shortness of breath has improved. She still isn't eating very well. REVIEW OF SYSTEMS: CONSTITUTIONAL: No night sweats. No fatigue, malaise, lethargy. No fever or chills. HEENT: Eyes: No visual changes. No eye pain. No eye discharge. ENT: No runny nose. No epistaxis. No sinus pain. No odynophagia. No congestion. RESPIRATORY: Cough, no congestion. No hemoptysis. No shortness of breath. CARDIOVASCULAR: No angina symptoms. No CHF symptoms. No atypical chest pain for CAD. No palpitations. No orthopnea.. GASTROINTESTINAL: No abdominal pain. No nausea or vomiting. No diarrhea or constipation. No hematemesis. No hematochezia. GENITOURINARY: No urgency. No frequency. No dysuria. No hematuria. No obstructive symptoms. No discharge. No pain. No significant abnormal bleeding. MUSCULOSKELETAL: No musculoskeletal pain; no joint swelling. NEUROLOGICAL: Awake, alert, oriented to time, place and person. No headache. No neck pain. No syncope. No seizures. No dizziness. PSYCHIATRIC: Not anxious. No depression. No suicidal thoughts. No homicidal thoughts. SKIN: No rash. No lesions. No wounds. Leg edema. ENDOCRINE: No unexplained weight loss. No weight gain. HEMATOLOGIC/LYMPHATIC: No anemia. No purpura. No petechiae. No prolonged or excessive bleeding. No palpable lymph nodes. PHYSICAL EXAMINATION: GENERAL: The patient is awake, alert and oriented, lying in bed in no distress. VITAL SIGNS: Temperature 97.4 F, Pulse 62, Respiratory Rate 16, BP 160/90, Pulse Ox 100% HEENT: Head normocephalic, atraumatic. Eyes: Extraocular muscles are intact. Pupils are equal, round and reactive to light and accommodation. Ears: No lesions. Nose appeared normal. Throat: No exudate or erythema. NECK: Supple. No JVD, no carotid bruit. No lymphadenopathy or thyromegaly. LUNGS: Diminished breath sounds. Clear to auscultation. Percussion note normal. Chest symmetrical. HEART: S1, S2, no S3. No murmurs. No cyanosis or clubbing. No ascites. Pulses: Dorsalis pedis and posterior tibial pulses +1 to +2 both sides. ABDOMEN: Soft. Non-tender. Bowel sounds active. No CVA tenderness. No mass felt. EXTREMITIES: Trace bilateral leg edema. Full range of motion of all extremities, equal. NEUROLOGIC: No focal deficit. Cranial nerves II through XII are grossly intact. No headache, no double vision or headache. SKIN: Not dry. Intact. Turgor-normal. LYMPHATIC: No palpable lymph nodes/no lymphedema. MUSCULOSKELETAL: Normal joints with no swelling. Muscle tone is normal. LAB REVIEW: 12/20/18 05:00 12/20/18 05:00 12/20/18 05:00: Sodium 136.6, Potassium 3.68, Chloride 103.3, Carbon Dioxide 27.3, Anion Gap 9.68, BUN 11.9, Creatinine 0.82, Estimated GFR (MDRD) 67.00, BUN /Creatinine Ratio 14.51, Glucose 98.2, Calcium 9.12, Total Bilirubin 0.29, AST 19.6, ALT 20.6, Alkaline Phosphatase 101.8, Total Protein 5.24 L, Albumin 3.27 L , Globulin 1.97, Albumin/Globulin Ratio 1.65 12/20/18 05:00: WBC 8.77, RBC 3.27 L, Hgb 9.9 L, Hct 32.0 L, MCV 97.9, MCH 30.3 , MCHC 30.9 L, RDW Coeff of Sue 16.2 H, Plt Count 206, Immature Gran % (Auto) 0.7, Neut % (Auto) 83.6, Lymph % (Auto) 7.9 L, [place] % (Auto) 7.6, Eos % (Auto) 0.1, Baso % (Auto) 0.1, Immature Gran # (Auto) 0.1, Neut # (Auto) 7.3 H, Lymph # (Auto) 0.7, [place] # (Auto) 0.7, Eos # (Auto) 0.0, Baso # (Auto) 0.0 12/19/18 08:35: Digoxin 1.27 ASSESSMENT: Please see below. 1. Bilateral pneumonia, improving. 2. Shortness of breath, resolved 3. CHF 4. Atrial fibrillation not on blood thinner due to history of intra-cranial bleed. PLAN: 1. Increase Hydralazine to 75mg twice a day 2. Lasix 20mg IV tomorrow 3. Discontinue telemetry 4. 20meq of Potassium 5. Anticipate discharge tomorrow. Plan and coordination of the patient's care discussed in the presence of Oil Expeller and nurse. SCRIBED BY: Simi JEFFREY scribed while in presence of service performed by Dr. Liu/Petty Anderson APRN on 12/20/18 ([id number])
[2018-12-20] MEDS: LEVAQUIN 500 MG in PREMIX 100 ML D5W 1 BAG IV SCH (09:01)
[2018-12-20] MEDS: APRESOLINE PO SCH ×3 (09:06→20:33)
[2018-12-20] MEDS: BENTYL PO SCH (09:07)
[2018-12-20] MEDS: SORBITRATE PO SCH ×2 (09:07→20:32)
[2018-12-20] MEDS: ZYLOPRIM PO SCH ×2 (09:07→20:32)
[2018-12-20] MEDS: CARDIZEM CD PO SCH (09:08)
[2018-12-20] MEDS: BETAPACE PO SCH ×2 (09:08→20:32)
[2018-12-20] MEDS: ASPIRIN CHEWABLE PO SCH (09:08)
[2018-12-20] MEDS: MULTIVITAMIN TABLET PO SCH (09:09)
[2018-12-20] MEDS: COZAAR PO SCH (09:09)
[2018-12-20] MEDS: PREDNISONE PO SCH ×2 (09:09→17:12)
[2018-12-20] MEDS: K-DUR PO SCH (09:10)
[2018-12-20] MEDS: CLARITIN PO SCH (09:10)
[2018-12-20] MEDS: LANOXIN PO SCH (09:11)
--- NOTE | 2018-12-20 09:16 | PN ---
DATE OF SERVICE: 12/19/18 SUBJECTIVE: The patient was seen and examined with Nurse Practitioner. 83 year old white female hospitalized with pneumonia, bronchitis and CHF. The patient's atrial fibrillation with pacemaker, rhythm is stable. Her vital signs; temperature 97.8 , pulse 66, respiratory rate 20, blood pressure 128/77 and pulse ox 96%. The patient's old records reviewed and the patient has history of intracranial bleed with stroke. She was not a candidate for blood thinners or even with atrial fibrillation not on any Novel blood thinner or Coumadin has been properly documented in the past. TIME SPENT: More than 30 minutes. Plan and coordination of the patient's care discussed in the presence of nurse. ANAND
--- NOTE | 2018-12-20 10:11 | PN ---
DATE OF SERVICE: 12/18/18 SUBJECTIVE: The patient was seen and examined today. 83 Year old white female hospitalized with acute bronchitis, pneumonitis and CHF. The patient's condition has improved. She is feeling a lot better. She is laying flat. REVIEW OF SYSTEMS: CONSTITUTIONAL: No night sweats. No fatigue, malaise, lethargy. No fever or chills. HEENT: Eyes: No visual changes. No eye pain. No eye discharge. ENT: No runny nose. No epistaxis. No sinus pain. No sore throat. No odynophagia. No congestion. RESPIRATORY: Mild cough, Congestion. No hemoptysis. No shortness of breath. CARDIOVASCULAR: No angina symptoms. No CHF symptoms. No atypical chest pain for CAD. No palpitations. No PND. No orthopnea. GASTROINTESTINAL: No abdominal pain. No nausea or vomiting. No diarrhea or constipation. No hematemesis. No hematochezia. Appetite has improved. GENITOURINARY: No urgency. No frequency. No dysuria. No hematuria. No obstructive symptoms. No discharge. No pain. No significant abnormal bleeding. MUSCULOSKELETAL: No musculoskeletal pain; no joint swelling. NEUROLOGICAL: No headache. No neck pain. No syncope. No seizures. No dizziness. PSYCHIATRIC: Not anxious. No depression. No suicidal thoughts. No homicidal thoughts. SKIN: No rash. No lesions. No wounds. ENDOCRINE: No unexplained weight loss. No weight gain. HEMATOLOGIC/LYMPHATIC: No anemia. No purpura. No petechiae. No prolonged or excessive bleeding. No palpable lymph nodes. PHYSICAL EXAMINATION: VITAL SIGNS: Temperature 97.8, pulse 66m, respiratory rate 20, blood pressure 122/77 and pulse ox 96%. HEENT: Head normocephalic, atraumatic. Eyes: Extraocular muscles are intact. Pupils are equal, round and reactive to light and accommodation. Ears: No lesions. Nose appeared normal. Throat: No exudate or erythema. NECK: Supple. No JVD, no carotid bruit. No lymphadenopathy or thyromegaly. LUNGS: Decreased breath sounds but clear to auscultation. Percussion note normal. Chest symmetrical. HEART: S1, S2, no S3. Grade I/ systolic murmur. No cyanosis or clubbing. No ascites. Pulses: Dorsalis pedis and posterior tibial pulses +1 to +2 bilaterally. ABDOMEN: Soft. Nontender. Bowel sounds active. No CVA tenderness. No mass felt. EXTREMITIES: No edema. Full range of motion of all extremities, equal. NEUROLOGIC: No focal deficit. Cranial nerves II through XII are grossly intact. No headache, no double vision or headache. SKIN: Not dry. Intact. Turgor - normal. LYMPHATIC: No palpable lymph nodes/no lymphedema. MUSCULOSKELETAL: Normal joints with no swelling. Muscle tone is normal. LABS: Echo was done today which showed mild hypokinetic septal motion with normal ejection fraction with LVH. LA cavity is enlarged. HGb 9.2, hct 29, WBC 8,400 normal differential, creatinine 0.7, BUN 12. ASSESSMENT: 1. Pneumonia seems to be improving with bronchitis type of symptoms shows improving 2. CHF under control. 3. Pacemaker PLAN: 1. Echo report discussed with the patient 2. Continue the same management. 3. The patient's blood pressure seems to be better today and seems to be labile. 4. CHF discussed with the patient. TIME SPENT: More than 30 minutes. Plan and coordination of the patient's care discussed in the presence of nurse. ANAND
[2018-12-20] MEDS: LIPITOR PO SCH (20:32)
[2018-12-20] MEDS: XALATAN OP SCH (20:34)
[2018-12-21] MEDS: XOPENEX 1.25 MG NEB SCH ×3 (04:30→20:10)
[2018-12-21] MEDS: PULMICORT 0.5 MG/2 ML NEB SCH ×2 (04:30→20:10)
[2018-12-21] MEDS ORDERED: LASIX IVP ONE (06:00)
[2018-12-21] MEDS: PRILOSEC PO SCH (06:11)
--- NOTE | 2018-12-21 08:47 | PCM.PROG ---
Attending Provider: ATTENDING PROVIDER: Dr. HECTOR LIU DATE OF SERVICE: 12/21/18 SUBJECTIVE: This 83 year old WHITE/ F was hospitalized 12/16/18 with pneumonia and CHF. The patient's condition is slowly improving. Blood pressure systolic is still high. We will increase her Hydralazine to 100mg twice a day. We will continue to give IV Lasix. The patient seems to be oriented to time, place and person just hard of hearing. REVIEW OF SYSTEMS: CONSTITUTIONAL: No night sweats. No fatigue, malaise, lethargy. No fever or chills. HEENT: Eyes: No visual changes. No eye pain. No eye discharge. ENT: No runny nose. No epistaxis. No sinus pain. No odynophagia. No congestion. RESPIRATORY: No cough, no congestion. No hemoptysis. No shortness of breath. CARDIOVASCULAR: No angina symptoms. No CHF symptoms. No atypical chest pain for CAD. No palpitations. No orthopnea.. GASTROINTESTINAL: No abdominal pain. No nausea or vomiting. No diarrhea or constipation. No hematemesis. No hematochezia. GENITOURINARY: No urgency. No frequency. No dysuria. No hematuria. No obstructive symptoms. No discharge. No pain. No significant abnormal bleeding. MUSCULOSKELETAL: No musculoskeletal pain; no joint swelling. NEUROLOGICAL: Awake, alert, oriented to time, place and person. No headache. No neck pain. No syncope. No seizures. No dizziness. PSYCHIATRIC: Not anxious. No depression. No suicidal thoughts. No homicidal thoughts. SKIN: No rash. No lesions. No wounds. ENDOCRINE: No unexplained weight loss. No weight gain. HEMATOLOGIC/LYMPHATIC: No anemia. No purpura. No petechiae. No prolonged or excessive bleeding. No palpable lymph nodes. PHYSICAL EXAMINATION: GENERAL: The patient is awake, alert and oriented, lying in bed in no distress. VITAL SIGNS: Temperature 98 F, Pulse 61, Respiratory Rate 18, BP 164/72, Pulse Ox 100% HEENT: Head normocephalic, atraumatic. Eyes: Extraocular muscles are intact. Pupils are equal, round and reactive to light and accommodation. Ears: No lesions. Nose appeared normal. Throat: No exudate or erythema. NECK: Supple. No JVD, no carotid bruit. No lymphadenopathy or thyromegaly. LUNGS: Decreased breath sounds. No creps. Clear to auscultation. Percussion note normal. Chest symmetrical. HEART: S1, S2, no S3. No murmurs. No cyanosis or clubbing. No ascites. Pulses: Dorsalis pedis and posterior tibial pulses +1 to +2 both sides. ABDOMEN: Soft. Non-tender. Bowel sounds active. No CVA tenderness. No mass felt. EXTREMITIES: No edema. Full range of motion of all extremities, equal. NEUROLOGIC: No focal deficit. Cranial nerves II through XII are grossly intact. No headache, no double vision or headache. SKIN: Warm and dry. Intact. Turgor-normal. LYMPHATIC: No palpable lymph nodes/no lymphedema. MUSCULOSKELETAL: Normal joints with no swelling. Muscle tone is normal. LAB REVIEW: 12/21/18 05:00 12/21/18 05:00 12/21/18 05:00: Sodium 135.5, Potassium 3.81, Chloride 98.9, Carbon Dioxide 33.5 H, Anion Gap 6.91, BUN 11.7, Creatinine 0.80, Estimated GFR (MDRD) 69.00, BUN/Creatinine Ratio 14.62, Glucose 90.7, Calcium 8.95, Total Bilirubin 0.44, AST 19.4, ALT 19.0, Alkaline Phosphatase 103.8, Total Protein 5.06 L, Albumin 3.12 L, Globulin 1.94, Albumin/Globulin Ratio 1.60 12/21/18 05:00: WBC 9.88, RBC 3.47 L, Hgb 10.9 L, Hct 33.9 L, MCV 97.7, MCH 31.4 H, MCHC 32.2, RDW Coeff of Sue 16.1 H, Plt Count 202, Immature Gran % (Auto ) 0.9, Neut % (Auto) 84.2, Lymph % (Auto) 8.3 L, [place] % (Auto) 6.3, Eos % (Auto ) 0.2, Baso % (Auto) 0.1, Immature Gran # (Auto) 0.1, Neut # (Auto) 8.3 H, Lymph # (Auto) 0.8, [place] # (Auto) 0.6, Eos # (Auto) 0.0, Baso # (Auto) 0.0 ASSESSMENT: Please see below. 1. Pneumonia clinically resolved 2. CHF being treated 3. Blood pressure systolic high upper limits of normal PLAN: 1. Increase Hydralazine 2. Continue IV Lasix 20mg Daily 3. Stop IV Levaquin 4. Levaquin PO 500mg daily Plan and coordination of the patient's care discussed in the presence of Oval Or Circular Glass Cutter and nurse. SCRIBED BY: FLORI RATLIFF Machine Tool Mechanic scribed while in presence of service performed by Dr. HECTOR LIU on 12/21/18 ([id number])
[2018-12-21] MEDS: LANOXIN PO SCH (08:52)
[2018-12-21] MEDS: APRESOLINE PO SCH ×2 (08:52→20:49)
[2018-12-21] MEDS: ASPIRIN CHEWABLE PO SCH (08:52)
[2018-12-21] MEDS: SORBITRATE PO SCH ×2 (08:53→20:46)
[2018-12-21] MEDS: PREDNISONE PO SCH ×2 (08:53→17:11)
[2018-12-21] MEDS: BETAPACE PO SCH ×2 (08:53→20:46)
[2018-12-21] MEDS: LEVAQUIN PO SCH (08:54)
[2018-12-21] MEDS: ZYLOPRIM PO SCH ×2 (08:54→20:46)
[2018-12-21] MEDS: BENTYL PO SCH (08:54)
[2018-12-21] MEDS: K-DUR PO SCH (08:55)
[2018-12-21] MEDS: CARDIZEM CD PO SCH (08:55)
[2018-12-21] MEDS: MULTIVITAMIN TABLET PO SCH (08:55)
[2018-12-21] MEDS: COZAAR PO SCH (08:55)
[2018-12-21] MEDS: CLARITIN PO SCH (08:55)
[2018-12-21] MEDS ORDERED: LEVAQUIN PO SCH (09:00)
[2018-12-21] MEDS: LIPITOR PO SCH (20:46)
[2018-12-21] MEDS: XALATAN OP SCH (20:47)
[2018-12-22] MEDS: PULMICORT 0.5 MG/2 ML NEB SCH (04:40)
[2018-12-22] MEDS: XOPENEX 1.25 MG NEB SCH (04:40)
[2018-12-22 05:11] VITALS: BP 150/72; TEMP 97.9
[2018-12-22] MEDS: LEVAQUIN PO SCH (06:10)
[2018-12-22] MEDS: PRILOSEC PO SCH (06:11)
[2018-12-22] MEDS ORDERED: LASIX IVP SCH (06:30)
--- NOTE | 2018-12-22 08:12 | PCM.PROG ---
Attending Provider: ATTENDING PROVIDER: Dr. HECTOR LIU This patient is seen with Petty Anderson, Nurse Practitioner. DATE OF SERVICE: 12/22/18 SUBJECTIVE: This 83 year old WHITE/ F was hospitalized 12/16/18. The patient is resting comfortably. She has been wearing oxygen. Cough has significantly improved. Blood pressure is better. She has been eating well. We will discharge back to [facility] today. REVIEW OF SYSTEMS: CONSTITUTIONAL: No night sweats. No fatigue, malaise, lethargy. No fever or chills. HEENT: Eyes: No visual changes. No eye pain. No eye discharge. ENT: No runny nose. No epistaxis. No sinus pain. No odynophagia. No congestion. RESPIRATORY: No cough, no congestion. No hemoptysis. No shortness of breath. CARDIOVASCULAR: No angina symptoms. No CHF symptoms. No atypical chest pain for CAD. No palpitations. No orthopnea.. GASTROINTESTINAL: No abdominal pain. No nausea or vomiting. No diarrhea or constipation. No hematemesis. No hematochezia. GENITOURINARY: No urgency. No frequency. No dysuria. No hematuria. No obstructive symptoms. No discharge. No pain. No significant abnormal bleeding. MUSCULOSKELETAL: No musculoskeletal pain; no joint swelling. Weakness. NEUROLOGICAL: Awake, alert, oriented to time, place and person. No headache. No neck pain. No syncope. No seizures. No dizziness. PSYCHIATRIC: Not anxious. No depression. No suicidal thoughts. No homicidal thoughts. SKIN: No rash. No lesions. No wounds. ENDOCRINE: No unexplained weight loss. No weight gain. HEMATOLOGIC/LYMPHATIC: No anemia. No purpura. No petechiae. No prolonged or excessive bleeding. No palpable lymph nodes. PHYSICAL EXAMINATION: GENERAL: The patient is awake, alert and oriented, lying in bed in no distress. VITAL SIGNS: Temperature 97.9 F, Pulse 63, Respiratory Rate 18, BP 150/72, Pulse Ox 100% HEENT: Head normocephalic, atraumatic. Eyes: Extraocular muscles are intact. Pupils are equal, round and reactive to light and accommodation. Ears: No lesions. Nose appeared normal. Throat: No exudate or erythema. NECK: Supple. No JVD, no carotid bruit. No lymphadenopathy or thyromegaly. LUNGS: Diminished breath sounds. Clear to auscultation. Percussion note normal. Chest symmetrical. HEART: S1, S2, no S3. No murmurs. No cyanosis or clubbing. No ascites. Pulses: Dorsalis pedis and posterior tibial pulses +1 to +2 both sides. ABDOMEN: Soft. Non-tender. Bowel sounds active. No CVA tenderness. No mass felt. EXTREMITIES: No edema. Full range of motion of all extremities, equal. NEUROLOGIC: No focal deficit. Cranial nerves II through XII are grossly intact. No headache, no double vision or headache. SKIN: Not dry. Intact. Turgor-normal. LYMPHATIC: No palpable lymph nodes/no lymphedema. MUSCULOSKELETAL: Normal joints with no swelling. Muscle tone is normal. LAB REVIEW: 12/22/18 05:00 12/22/18 05:00 12/22/18 05:00: Sodium 135.1, Potassium 3.98, Chloride 96.2 L, Carbon Dioxide 34.4 H, Anion Gap 8.48, BUN 12.7, Creatinine 0.75, Estimated GFR (MDRD) 74.00, BUN/Creatinine Ratio 16.93, Glucose 102.6, Calcium 9.09, Total Bilirubin 0.42, AST 18.7, ALT 17.6, Alkaline Phosphatase 97.1, Total Protein 4.95 L, Albumin 3.03 L, Globulin 1.92, Albumin/Globulin Ratio 1.57 12/22/18 05:00: WBC 10.30 H, RBC 3.42 L, Hgb 10.5 L, Hct 33.5 L, MCV 98.0, MCH 30.7, MCHC 31.3 L, RDW Coeff of Sue 16.0 H, Plt Count 210, Immature Gran % (Auto ) 1.0, Neut % (Auto) 84.1, Lymph % (Auto) 8.3 L, [place] % (Auto) 6.4, Eos % (Auto ) 0.1, Baso % (Auto) 0.1, Immature Gran # (Auto) 0.1, Neut # (Auto) 8.7 H, Lymph # (Auto) 0.9, [place] # (Auto) 0.7, Eos # (Auto) 0.0, Baso # (Auto) 0.0 ASSESSMENT: Please see below. 1. Bilateral pneumonia 2. CHF, resolved 3. Atrial fibrillation with history of intra-cranial bleed not on any blood thinners. 4. Hypertension, controlled. PLAN: 1. Discharge to [facility] 2. PO Levaquin 500mg daily for three days 3. CBC and CMP in one week. 4. Discontinue Bumax 5. Prednisone 10mg daily for 10 days 6. Lasix 20mg PO daily 7. 10meq PO daily 8. Continue Hydralazine 100mg twice a day Plan and coordination of the patient's care discussed in the presence of Circular Knitter and nurse. SCRIBED BY: Simi JEFFREY scribed while in presence of service performed by Dr. Liu/Petty Anderson APRN on 12/22/18 ([id number])
[2018-12-22] MEDS: BETAPACE PO SCH (08:30)
[2018-12-22] MEDS: APRESOLINE PO SCH (08:30)
[2018-12-22] MEDS: ASPIRIN CHEWABLE PO SCH (08:30)
[2018-12-22] MEDS: COZAAR PO SCH (08:31)
[2018-12-22] MEDS: CLARITIN PO SCH (08:31)
[2018-12-22] MEDS: PREDNISONE PO SCH (08:31)
[2018-12-22] MEDS: ZYLOPRIM PO SCH (08:31)
[2018-12-22] MEDS: CARDIZEM CD PO SCH (08:31)
[2018-12-22] MEDS: BENTYL PO SCH (08:31)
[2018-12-22] MEDS: MULTIVITAMIN TABLET PO SCH (08:31)
[2018-12-22] MEDS: SORBITRATE PO SCH (08:31)
[2018-12-22] MEDS: K-DUR PO SCH (08:31)
[2018-12-22] MEDS: LANOXIN PO SCH (08:39)
--- NOTE | 2018-12-22 09:31 | RS.PTINEVL ---
Subjective - Patient information Date of Evaluation: 12/21/18 Date of Arrival on Unit: 12/16/18 Admitted From:: Custodial Diagnosis: Bibasilar pneumonia and SOA Usual Living Arrangement: Custodial Home Environment: Level/No stairs Medical History: Hypertension, COPD, CHF, Arthritis (OA, RA) Medical History Comments:: GERD, CAD, afib, depression, anxiety LATEX ALLERGY?: No Surgical History: Knee Replacement (bilateral), Hip Replacement Surgical History Comments:: pacemaker Medications: see chart Subjective Information/ Patient Comments:: pt states "Honey am I going to make it?" Reassured pt that she was doing better. - Level of function Prior to this admission, the patient could do the following:: Partially Dependent Ambulation Current Level of Function: Partially Dependent Current Equipment Used at Home: pt currently resides at [facility], has a w/c and walker. Interventions - Objective Patient Orientation: Person, Place Current Interventions: Oxygen, Telemetry Range of Motion - ROM Right Upper Extremity AROM: WFL's Left Upper Extremity AROM: WFL's Right Lower Extremity AROM: WFL's Left Lower Extremity AROM: WFL's Muscle Strength - Muscle Strength Right Upper Extremity Strength: Mild Weakness (shld flex 3+/5, elbow flex/ext 4- /5, decreased auto body technician B UE) Left Upper Extremity Strength: Mild Weakness (shld flex 3+/5, elbow flex/ext 4-/ 5, decreased auto body technician B UE) Right Lower Extremity Strength: Mild Weakness (hip flex 3+/5, knee flex/ext 4-/5 , ankle Df/PF 4-/5) Left Lower Extremity Strength: Mild Weakness (hip flex 3+/5, knee flex/ext 4-/5 , ankle Df/PF 4-/5) Sensation - Sensation Right Upper Extremity Sensation: Intact/Normal Left Upper Extremity Sensation: Intact/Normal Right Lower Extremity Sensation: Intact/Normal Left Lower Extremity Sensation: Intact/Normal Palpation Palpation Findings: None/Normal Balance - Sitting Balance and Reactions Static Sitting Balance: Fair Dynamic Sitting Balance: Poor Sitting Equilibrium Reactions: Delayed Left, Delayed Right Sitting Protective Reactions: Delayed Left, Delayed Right - Standing Balance and Reactions Static Standing Balance: Poor Dynamic Standing Balance: Poor Standing Equilibrium Reactions: Delayed Left, Delayed Right Standing Protective Reactions: Absent Left, Absent Right - Comments Balance Assessment Comments: pt able to maintain static sitting balance with cues, dyn sitting balance: able to reach away from and across midline with CGA, pt with occasional LOB requiring min to mod x 1 to maintain balance. Functional Mobility - Bed Mobility Rolling R/L: Mod Assist, Max Assist, 2 person assist Scooting: Max Assist, 2 person assist Supine to Sit: Mod Assist, Max Assist, 2 person assist - Transfers Sit to Stand: Max Assist, 2 person assist Stand Pivot Transfers: Max Assist, 2 person assist Comments:: pt was placed on lift pad in the chair so nursing staff could transfer pt back to bed safely. - Safety Awareness Safety Awareness: Poor ANETTE INDEX SCORE: n/a Treatment time - Time with patient Length of Evaluation: 21 Total treatment time: 25 Patient Education - Education Patient Education: Activity Modification, Education of Plan of Care Teaching Recipient: Patient, Primary Caregiver Teaching Methods: Discussion Comments: discussion with patient and staff that PT recommends nursing use lift to transfer pt to ensure pt and staff safety. Assessment - Assessment Problem List:: Decreased level of function, Requires training/education, Decreased safety/Risk of falls, Weakness, Cognitive status limits abilities Rehab Potential: Fair Further Therapy Indicated?: Yes Candidate for Swing Bed for Therapy Services?: Do not feel pt is candidate for swing bed for therapy due to pt prior level of function Evaluation Complexity: HISTORY: Medium, EXAM OF BODY SYSTEMS: Medium, CLINICAL PRESENTATION: Medium, CLINICAL DECISION MAKING: Medium Short Term Goals GOAL #1: pt demonstrate rolling using bedrail with min x 1 Goal to be met by: 12/24/18 GOAL #2: Transfer sup to/from sit mod x 2 Goal to be met by: 12/24/18 GOAL #3: pt able to sit at side of bed x 5 mins unsupported Goal to be met by: 12/24/18 GOAL #4: Improved BLE strength 4-/5 Goal to be met by: 12/24/18 GOAL #5: Sit to/from stand mod x 2 Goal to be met by: 12/24/18 Electric Meter Repairer Apprentice Goals GOAL #1: Transfer sup to/from sit to/from stand mod x 1 Goal to be met by: 12/27/18 GOAL #2: Stand pivot bed to chair mod x 2 Goal to be met by: 12/27/18 GOAL #3: pt able to stand at parallel bars x 2 mins with min to mod x 2 Goal to be met by: 12/27/18 Plan Plan of Care: Therapeutic EX, Therapeutic Activity Other:: progress to gait if patient able Frequency of Treatment: 1-2 X day, as tolerated Duration of Treatment: 5 days Anticipated [facility]charge Destination[facility] Treatment Diagnosis (ICD 10 Codes): R26.81 balance impaired. M62.81 weakness. z91. 81 risk of falls Has the Physician been added for Co-signature?: Yes
--- NOTE | 2018-12-22 10:57 | CM.DICTOOL ---
ADMISSION: 12/16/18 10:51 DISCHARGE: DECEMBER 22, 2018 DATE OF SERVICE: 12/22/18 FINAL DIAGNOSIS BILATERAL PNEUMONIA CHF ANEMIA HYPERTENSION CHF COPD CAD ATRIAL FIBRILLATION (NOT ON BLOOD THINNER DUE TO IC BLEED) DYSLIPIDEMIA CKD, STAGE 3 RHEUMATOID ARTHRITIS HISTORY OF FALLS HISTORY OF PUBIC FRACTURE, LEFT (06/2018) HISTORY OF LEFT HIP FRACTURE ANXIETY DEPRESSION HISTORY OF INTRA CRANIAL BLEED LEFT HIP REPLACEMENT BILATERAL KNEE REPLACEMENT LAST VITALS Temp Pulse Resp BP Pulse Ox 97.9 F 68 18 150/72 H 100 12/22/18 05:08 12/22/18 08:39 12/22/18 05:08 12/22/18 05:08 12/22/18 05:08 TAKE THESE MEDICATIONS AT HOME Acetaminophen (Tylenol) 650 mg PO Q4H PRN PRN Reason: Pain Last Admin: 12/19/18 22:17 Dose: 650 mg Acetaminophen/Butalbital/Caffeine (Fioricet) 1 each PO Q4H PRN PRN Reason: HEADACHE Last Admin: 12/17/18 19:44 Dose: 1 each Hydrocodone Bitart/Acetaminophen ([place] 7.5-325) 1 tab PO Q4HR PRN PRN Reason: Pain Last Admin: 12/19/18 14:20 Dose: 1 tab Allopurinol (Zyloprim) 100 mg PO BID [facility] Last Admin: 12/22/18 08:31 Dose: 100 mg Aspirin (Aspirin Chewable) 81 mg PO DAILYWM [facility] Last Admin: 12/22/18 08:30 Dose: 81 mg Atorvastatin Calcium (Lipitor) 20 mg PO BEDTIME [facility] Last Admin: 12/21/18 20:46 Dose: 20 mg Benzocaine/Menthol (Cepacol Sore Throat Lozenge) 1 lozenge MUCOUSMEMB DIRECTED PRN PRN Reason: SORE THROAT Bisacodyl (Dulcolax) 10 mg RC DAILY PRN PRN Reason: Constipation Clonidine (Catapres) 0.1 mg PO BID PRN PRN Reason: IF BLOOD PRESSURE >170/90 Last Admin: 12/17/18 05:54 Dose: 0.1 mg Dicyclomine HCl (Bentyl) 10 mg PO DAILY [facility] Last Admin: 12/22/18 08:31 Dose: 10 mg Digoxin (Lanoxin) 125 mcg PO DAILY [facility] Last Admin: 12/22/18 08:39 Dose: 125 mcg Diltiazem HCl (Cardizem Cd) 180 mg PO DAILY [facility] Last Admin: 12/22/18 08:31 Dose: 180 mg Furosemide (Lasix) 20 mg PO QDAC [facility] Last Admin: 12/22/18 06:10 Dose: 20 mg Guaifenesin/Dextromethorphan (Robitussin Dm Syrup) 5 ml PO QID PRN PRN Reason: Cough Hydralazine HCl (Apresoline) 100 mg PO Q12H [facility] Last Admin: 12/22/18 08:30 Dose: 100 mg Isosorbide Dinitrate (Sorbitrate) 20 mg PO BID [facility] Last Admin: 12/22/18 08:31 Dose: 20 mg Latanoprost (Xalatan) 1 drop OP BEDTIME [facility] Last Admin: 12/21/18 20:47 Dose: 1 drop Levofloxacin (Levaquin) 500 mg PO QDAC [facility] FOR 3 DAYS Last Admin: 12/22/18 06:10 Dose: 500 mg Loperamide HCl (Imodium) 2 mg PO Q12H PRN PRN Reason: Diarrhea Cetirizine HCL (Zyrtec) 10 mg PO DAILY [facility] Last Admin: 12/22/18 08:31 Dose: 10 mg Losartan Potassium (Cozaar) 100 mg PO DAILY [facility] Last Admin: 12/22/18 08:31 Dose: 100 mg Magnesium Hydroxide (Milk Of Magnesia) 30 ml PO DAILY PRN PRN Reason: CONSTIPATION Meclizine HCl (Antivert) 25 mg PO Q8H PRN PRN Reason: Antiemetic Multivitamins (Multivitamin Tablet) 1 tab PO DAILY [facility] Last Admin: 12/22/18 08:31 Dose: 1 tab Non-Formulary Medication (Dextran 70/Hypromellose [Artificial Tears Eye Drops]) 30 ml OP BID PRN PRN Reason: Dryness Omeprazole (Prilosec) 40 mg PO QDAC [facility] Last Admin: 12/22/18 06:11 Dose: 40 mg Potassium Chloride (K-Dur) 10 meq PO DAILYWM [facility] Last Admin: 12/22/18 08:31 Dose: 20 meq Prednisone (Prednisone) 10 mg PO ONCE DAILY WITH MEAL [facility] FOR 3 DAYS Last Admin: 12/22/18 08:31 Dose: 10 mg Sotalol HCl (Betapace) 120 mg PO BID [facility] Last Admin: 12/22/18 08:30 Dose: 120 mg ALLERGIES lactose Adverse Reaction (Verified 12/13/18 13:57) Penicillins Adverse Reaction (Verified 12/13/18 13:57) warfarin [From Coumadin] Adverse Reaction (Verified 12/13/18 13:57) DISCONTINUED MEDICATIONS BUMEX MEDICATION CHANGE INCREASE HYDRALAZINE TO 100 MG BID NEW PRESCRIPTIONS: LEVAQUIN 500 MG PO DAILY FOR 3 DAYS LASIX 20 MG DAILY K-TAB 10 MEQ DAILY PREDNISONE 10 MG DAILY FOR 3 DAYS SMOKING: NOT APPLICABLE DISEASE SPECIFIC EDUCATION: MEDICATIONS NUTRITION LAB REVIEW: 12/22/18 05:00 12/22/18 05:00 12/22/18 05:00: Sodium 135.1, Potassium 3.98, Chloride 96.2 L, Carbon Dioxide 34.4 H, Anion Gap 8.48, BUN 12.7, Creatinine 0.75, Estimated GFR (MDRD) 74.00, BUN/Creatinine Ratio 16.93, Glucose 102.6, Calcium 9.09, Total Bilirubin 0.42, AST 18.7, ALT 17.6, Alkaline Phosphatase 97.1, Total Protein 4.95 L, Albumin 3.03 L, Globulin 1.92, Albumin/Globulin Ratio 1.57 12/22/18 05:00: WBC 10.30 H, RBC 3.42 L, Hgb 10.5 L, Hct 33.5 L, MCV 98.0, MCH 30.7, MCHC 31.3 L, RDW Coeff of Sue 16.0 H, Plt Count 210, Immature Gran % (Auto ) 1.0, Neut % (Auto) 84.1, Lymph % (Auto) 8.3 L, [place] % (Auto) 6.4, Eos % (Auto ) 0.1, Baso % (Auto) 0.1, Immature Gran # (Auto) 0.1, Neut # (Auto) 8.7 H, Lymph # (Auto) 0.9, [place] # (Auto) 0.7, Eos # (Auto) 0.0, Baso # (Auto) 0.0 PLAN: DISCHARGE TO [facility] DIET: CONSISTENT CARBOHYDRATE, MECHANICAL SOFT ACTIVITY: UP TO CHAIR FOR MEALS EARLENE LIFT FOR TRANSFERS IF NEEDED PHYSICAL THERAPY EVALUATION OCCUPATIONAL THERAPY EVALUATION VITAL SIGNS TWICE DAILY FOR 1 WEEK, THEN WEEKLY TURN EVERY 2 HOURS INCONTINENT CARE DECUBITUS PRECAUTIONS WEIGH DAILY NASAL OXYGEN AT 2 LITERS PRN SATURATION BELOW 90% CBC, CMP IN ONE WEEK CBC, CMP EVERY 3 MONTHS FREE T4, TSH, LIPID PROFILE, DIGOXIN LEVEL EVERY 6 MONTHS THE PATIENT IS TO BE SEEN BY BLANCHE DUMONT APRN IN 7-10 DAYS ON PENITENTIARY ROUNDS CODE STATUS: FULL CODE MS. BOUCHER IS ALERT AND ORIENTED X 3. SHE IS HARD OF HEARING, BUT WEARS BILATERAL HEARING AIDES. MS. BOUCHER IS AWARE OF PLANS FOR RETURN TO [facility] TODAY AND SHE IS AGREEABLE. SHE IS INDEPENDENT WITH FEEDING, BUT REQUIRES ASSISTANCE WITH MEAL SET-UP. MEAL INTAKES ARE FAIR AT 25-50% WITH GOOD LIQUID INTAKE. URINARY INCONTINENCE IS NOTED. BEDPAN IS REQUESTED AT INTERVALS FOR VOIDING AND STOOL ELIMINATION. MS. BOUCHER IS ABLE TO TURN SELF IN THE BED, BUT IS UNABLE TO TRANSFER FROM THE BED TO THE CHAIR. SHE REQUIRES STAFF ASSISTANCE OF 3 FOR TRANSFER FROM BED TO THE CHAIR. SHE HAS REQUIRED USE OF THE EARLENE LIFT FOR TRANSFER BACK TO THE BED AFTER SITTING IN THE CHAIR. HYDRATION STATUS IS GOOD, SKIN IS INTACT AND FREE OF DECUBITUS ULCERS. MD BLANCHE BOWSER APRN
--- NOTE | 2018-12-22 14:01 | PN ---
DATE OF SERVICE: 12/22/18 SUBJECTIVE: The patient was seen and examined today with the Nurse Practitioner. The patient 's condition is stable. Pneumonia seems to have resolved clinically. The patient had multiple medical problems. Her prognosis is guarded. Atrial fibrillation with pacemaker but the patient has had intracranial bleed and at that time the decision was made not to push any blood thinners on this patient like Coumadin or Norval blood thinners. The patient flatly refused any blood thinners of any kind except for maybe baby aspirin. In any case the patient's condition is stable. She is going to be discharge home. TIME SPENT: More than 30 minutes. Plan and coordination of the patient's care discussed in the presence of nurse. ANAND
--- NOTE | 2018-12-22 14:03 | PN ---
12/16/18: Level 5 12/17/18: Intermediate 12/18/18: Intermediate 12/19/18: Intermediate 12/20/18: Intermediate 12/21/18: Intermediate 12/22/18: D as in discharge MTDD
--- NOTE | 2018-12-23 11:13 | PN ---
DATE OF SERVICE: 12/20/18 SUBJECTIVE: The patient was seen and examined with Nurse Practitioner. The patient's condition seems to be stable. Chest x-ray showed possibility of congestion. We gave IV Lasix daily and treated for CHF. Pneumonia seems to be resolving. TIME SPENT: More than 30 minutes. Plan and coordination of the patient's care discussed in the presence of nurse. ANAND
--- NOTE | 2018-12-28 14:44 | DS ---
DATE OF SERVICE: 12/22/18 FINAL DIAGNOSIS: 1. BILATERAL PNEUMONIA 2. CHF 3. ANEMIA 4. HYPERTENSION 5. CHF 6. COPD 7. CAD 8. ATRIAL FIBRILLATION (NOT ON BLOOD THINNER DUE TO IC BLEED) 9. DYSLIPIDEMIA 10. CKD, STAGE 3 11. RHEUMATOID ARTHRITIS 12. HISTORY OF FALLS 13. HISTORY OF PUBIC FRACTURE, LEFT (06/2018) 14. HISTORY OF LEFT HIP FRACTURE 15. ANXIETY 16. DEPRESSION 17. 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 BILATERAL KNEE REPLACEMENT LAST VITAL SIGNS: Temperature 97.9 12/22/18 @ 0508; pulse 68 12/22/18 @ 0508; respirations 18 12/22 @ 0508; BP 150/72 12/22/18 @ 0508; pulse ox 100 12/22/18 @ 0508. DISCHARGE INSTRUCTIONS: 1. DISCHARGE TO [facility] 2. PHYSICAL THERAPY EVALUATION AND OCCUPATIONAL THERAPY EVALUATION 3. VITAL SIGNS TWICE DAILY FOR 1 WEEK, THEN WEEKLY 4. TURN EVERY 2 HOURS 5. INCONTINENT CARE 6. DECUBITUS PRECAUTIONS 7. WEIGH DAILY 8. NASAL OXYGEN AT 2 LITERS PRN SATURATION BELOW 90% 9. CBC, CMP IN ONE WEEK 10. CBC, CMP EVERY 3 MONTHS 11. FREE T4, TSH, LIPID PROFILE, DIGOXIN LEVEL EVERY 6 MONTHS 12. THE PATIENT IS TO BE SEEN BY BLANCHE DUMONT APRN IN 7-10 DAYS ON CARE HOME ROUNDS MEDICATIONS AT DISCHARGE: Acetaminophen (Tylenol) 650 mg PO Q4H PRN PRN Reason: Pain Last Admin: 12/19/18 22:17 Dose: 650 mg Acetaminophen/Butalbital/Caffeine (Fioricet) 1 each PO Q4H PRN PRN Reason: HEADACHE Last Admin: 12/17/18 19:44 Dose: 1 each Hydrocodone Bitart/Acetaminophen (Dwight 7.5-325) 1 tab PO Q4HR PRN PRN Reason: Pain Last Admin: 12/19/18 14:20 Dose: 1 tab Allopurinol (Zyloprim) 100 mg PO BID [facility] Last Admin: 12/22/18 08:31 Dose: 100 mg Aspirin (Aspirin Chewable) 81 mg PO DAILYWM [facility] Last Admin: 12/22/18 08:30 Dose: 81 mg Atorvastatin Calcium (Lipitor) 20 mg PO BEDTIME [facility] Last Admin: 12/21/18 20:46 Dose: 20 mg Benzocaine/Menthol (Cepacol Sore Throat Lozenge) 1 lozenge MUCOUSMEMB DIRECTED PRN PRN Reason: SORE THROAT Bisacodyl (Dulcolax) 10 mg RC DAILY PRN PRN Reason: Constipation Clonidine (Catapres) 0.1 mg PO BID PRN PRN Reason: IF BLOOD PRESSURE >170/90 Last Admin: 12/17/18 05:54 Dose: 0.1 mg Dicyclomine HCl (Bentyl) 10 mg PO DAILY [facility] Last Admin: 12/22/18 08:31 Dose: 10 mg Digoxin (Lanoxin) 125 mcg PO DAILY [facility] Last Admin: 12/22/18 08:39 Dose: 125 mcg Diltiazem HCl (Cardizem Cd) 180 mg PO DAILY [facility] Last Admin: 12/22/18 08:31 Dose: 180 mg Furosemide (Lasix) 20 mg PO QDAC [facility] Last Admin: 12/22/18 06:10 Dose: 20 mg Guaifenesin/Dextromethorphan (Robitussin Dm Syrup) 5 ml PO QID PRN PRN Reason: Cough Hydralazine HCl (Apresoline) 100 mg PO Q12H [facility] Last Admin: 12/22/18 08:30 Dose: 100 mg Isosorbide Dinitrate (Sorbitrate) 20 mg PO BID [facility] Last Admin: 12/22/18 08:31 Dose: 20 mg Latanoprost (Xalatan) 1 drop OP BEDTIME [facility] Last Admin: 12/21/18 20:47 Dose: 1 drop Levofloxacin (Levaquin) 500 mg PO QDAC [facility] 3 [facility] Last Admin: 12/22/18 06:10 Dose: 500 mg Loperamide HCl (Imodium) 2 mg PO Q12H PRN PRN Reason: Diarrhea Cetirizine HCL (Zyrtec) 10 mg PO DAILY [facility] Last Admin: 12/22/18 08:31 Dose: 10 mg Losartan Potassium (Cozaar) 100 mg PO DAILY [facility] Last Admin: 12/22/18 08:31 Dose: 100 mg Magnesium Hydroxide (Milk Of Magnesia) 30 ml PO DAILY PRN PRN Reason: CONSTIPATION Meclizine HCl (Antivert) 25 mg PO Q8H PRN PRN Reason: Antiemetic Multivitamins (Multivitamin Tablet) 1 tab PO DAILY [facility] Last Admin: 12/22/18 08:31 Dose: 1 tab Non-Formulary Medication (Dextran 70/Hypromellose ) 30 ml OP BID PRN PRN Reason: Dryness Omeprazole (Prilosec) 40 mg PO QDAC [facility] Last Admin: 12/22/18 06:11 Dose: 40 mg Potassium Chloride (K-Dur) 10 meq PO DAILYWM [facility] Last Admin: 12/22/18 08:31 Dose: 20 meq Prednisone (Prednisone) 10 mg PO ONCE DAILY WITH MEAL [facility] 3 [facility] Last Admin: 12/22/18 08:31 Dose: 10 mg Sotalol HCl (Betapace) 120 mg PO BID [facility] Last Admin: 12/22/18 08:30 Dose: 120 mg NEW PRESCRIPTIONS: LEVAQUIN 500 MG PO DAILY FOR 3 DAYS LASIX 20 MG DAILY K-TAB 10 MEQ DAILY PREDNISONE 10 MG DAILY FOR 3 DAYS DISCONTINUED MEDICATIONS: Bumex MEDICATION CHANGE: Increase Hydralazine to 100 mg b.i.d. DIET INSTRUCTIONS: CONSISTENT CARBOHYDRATE, MECHANICAL SOFT ACTIVITY: UP TO CHAIR FOR MEALS EALRENE LIFT FOR TRANSFERS IF NEEDED SMOKING: N/A DISEASE SPECIFIC EDUCATION: MEDICATIONS NUTRITION HOSPITAL COURSE: This is an 83-year-old white female who is a resident of [facility]. She had been experiencing cough and shortness of breath. I previously treated her as an outpatient with a Z-pack and Prednisone as well as neb treatment. She continued to decline. Oxygen saturations at the halfway were less than 90%. We direct admitted her. Chest x-ray revealed bilateral pneumonia. We placed her on Levaquin 500 mg IV daily. She is slightly dehydrated with elevated kidney function on admission. We place her on IV fluids at 75 cc/hr with Normal Saline. We continued this for about 24 hours. Kidney function improved. She does have chronic anemia, hemoglobin remained stable while she was in the hospital. Her cough and shortness of breath continued to improve for a few days and then seemed to worsen. Repeat chest x- ray showed that she had vascular congestion. She was given 40 mg of IV Lasix times three days and this seemed to resolve. She does have a history of atrial fib. Telemetry showed consistent atrial fibrillation. She also has a pacemaker. She is not on a blood thinner due to history of intracranial bleed within the past few years and she continues to refuse any blood thinner as well due to this history. Two days later repeat chest x-ray revealed resolution of vascular congestion. We transitioned her Levaquin to 500 mg p.o. daily as well as Prednisone 10 mg daily. She was initially on Solu-Cortef 125 mg IV q.12 and did Xopenex neb treatments q.6hr. Over the course of the week she continued to improve. CHF resolved. Bilateral pneumonia resolved per chest x-ray. She was discharged to [facility] on Levaquin 500 mg p.o. daily for three days along with Prednisone 10 mg daily for three days. She was previously not on any diuretic. We discharged her on Lasix 20 mg daily to take along with K-Tab 10 mEq daily. She did previously have Bumex p.r.n. but I do not believe the halfway was administering this so we discontinued the Bumex and will place her on a regular Lasix dose along with potassium. On the day of discharge, hemoglobin stable at 10.5, hematocrit 33.5, platelets 210, white count 10. Sodium 135, potassium 3.9, BUN 12, creatinine 0.75. We did discharge her on oxygen at 1 to 2L p.r.n. if sats below 90. She will have CBC, CMP in one week. She is to continue Levaquin for the next three days along with Prednisone. I will followup with her in the halfway next week. TIME SPENT: More than 60 minutes. MTDD
== END 2018-12-22 13:15 | disposition home or self-care (01) | DRG 195 ==
LOC: MEDSURG A 10:51 → MEDSURG B 12-21 10:45
PROVIDERS: ADMIT Internal Medicine; ATTEND Internal Medicine
DX: J18.9 Pneumonia, unspecified organism (principal); I10 Essential (primary) hypertension; I50.9 Heart failure, unspecified; I25.10 Atherosclerotic heart disease of native coronary artery without angina pectoris; I48.91 Unspecified atrial fibrillation; M06.9 Rheumatoid arthritis, unspecified; M13.0 Polyarthritis, unspecified; M10.9 Gout, unspecified; N18.3 Chronic kidney disease, stage 3 (moderate); J44.9 Chronic obstructive pulmonary disease, unspecified; E78.5 Hyperlipidemia, unspecified; F41.9 Anxiety disorder, unspecified; F32.9 Major depressive disorder, single episode, unspecified; D64.9 Anemia, unspecified; R05 Cough; R53.1 Weakness; R60.0 Localized edema
CPT/HCPCS: 36415; 80053; 80162; 81001; 82550; 82803; 84484; 85025; 87081; 93005; 93010; 94640

== ENCOUNTER 2022-09-20 01:07 | Inpatient (IN) ==
--- NOTE | 2022-09-20 01:13 | ED.PDOC ---
General ED Provider: Dr. JERRY HERNÁNDEZ MD Chief Complaint: Respiratory Complaint Stated Complaint: Patient presents with a one day history of productive cough and dyspnea. She denies fever, chills, orthopnea, edema or chest pain. Patient does have some pleuritic chest pain with cough. Time Seen by Provider: 09/20/22 01:11 Primary Care Provider: HECTOR LIU MD Nursing and Triage Documentation Reviewed and Agree: Yes Does patient meet sepsis criteria?: No System Inflammatory Response Syndrome: Not Applicable Sepsis Protocol: For patient's 13 years and over: Temp is 96.8 and below OR 101 and greater Pulse >90 BPM Resp >20/minute Acutely Altered Mental Status Are patient's symptoms suggestive of a new infection, such as: -Pneumonia -Skin, Soft Tissue -Endocarditis -UTI -Bone, Joint Infection -Implantable Device -Acute Abdominal Infection -Wound Infection -Meningitis -Blood Stream Catheter Infection -Unknown Review of Systems Review Of Systems Constitutional: Reports No symptoms Eyes: Reports No symptoms Ears, Nose, Mouth, Throat: Reports No symptoms Respiratory: Reports Cough and Short of air Cardiac: Reports No symptoms GI: Reports No symptoms : Reports No symptoms Musculoskeletal: Reports No symptoms Skin: Reports No symptoms Neurological: Reports No symptoms Endocrine: Reports No symptoms Hematologic/Lymphatic: Reports No symptoms All Other Systems: Reviewed and Negative [facility] Surgical History History of heart surgery (03/30/18) Female Reproductive History Menstrual Hx Hysterectomy: No Hx Tubal Ligation: No Physical Exam Physical Exam Appearance: Reports No pain distress, Well-nourished, Obese and Other (Patient is alert, oriented and in NAD.) Ill-appearing: Mild Pain Distress: None Eyes: Reports Not Examined ENT: Reports Nose normal and Oropharynx normal Neck: Supple Respiratory: Reports Airway patent, Breath sounds equal, Breath sounds diminished and Wheezes Cardiovascular: Reports RRR, No rub and No murmur GI/: Reports Soft, Nontender, No masses and Bowel sounds normal Musculoskeletal: Reports Normal strength, ROM intact and No edema Skin: Reports Warm, Dry and Normal color Neurological: Reports Alert and Oriented Psychiatric: Reports Affect appropriate and Mood appropriate Interpretation Radiology Interpretation Radiology Interpretation By: Radiologist Exam Interpreted: Portable CXR (left basilar pneumonia/atelectasis) Critical Care Note Critical Care Note Total Critical Care Time (mins): 0 Course Course Hematology/Chemistry: 09/20/22 01:40 09/20/22 01:40 Orders, Labs, Meds: Lab Review 09/20/22 09/20/22 09/20/22 01:40 01:40 01:40 WBC 10.31 H RBC 3.42 L Hgb 10.4 L Hct 34.1 L MCV 99.7 H MCH 30.4 MCHC 30.5 L RDW Coeff of Sue 13.9 Plt Count 196 Immature Gran % (Auto) 1.6 Neut % (Auto) 77.8 H Lymph % (Auto) 7.6 L [place] % (Auto) 9.2 Eos % (Auto) 3.1 Baso % (Auto) 0.7 Neut # (Auto) 8.0 H Lymph # (Auto) 0.8 [place] # (Auto) 1.0 Eos # (Auto) 0.3 Baso # (Auto) 0.1 Immature Gran # (Auto) 0.2 Sodium 136.8 Potassium 4.59 Chloride 103.2 Carbon Dioxide 29.4 Anion Gap 8.79 BUN 20.7 H Creatinine 1.30 Estimated GFR (MDRD) 39.00 BUN/Creatinine Ratio 15.92 Glucose 107.7 H Calcium 9.88 Total Bilirubin 0.57 AST 15.7 ALT 12.0 Alkaline Phosphatase 102.6 Total Protein 6.38 Albumin 3.92 Globulin 2.46 Albumin/Globulin Ratio 1.59 Influ A Molecular Assay Influ B Molecular Assay SARS CoV-2 RNA Rapid JANNA Negative 09/20/22 01:40 WBC RBC Hgb Hct MCV MCH MCHC RDW Coeff of Sue Plt Count Immature Gran % (Auto) Neut % (Auto) Lymph % (Auto) [place] % (Auto) Eos % (Auto) Baso % (Auto) Neut # (Auto) Lymph # (Auto) [place] # (Auto) Eos # (Auto) Baso # (Auto) Immature Gran # (Auto) Sodium Potassium Chloride Carbon Dioxide Anion Gap BUN Creatinine Estimated GFR (MDRD) BUN/Creatinine Ratio Glucose Calcium Total Bilirubin AST ALT Alkaline Phosphatase Total Protein Albumin Globulin Albumin/Globulin Ratio Influ A Molecular Assay Negative by naat Influ B Molecular Assay Negative by naat SARS CoV-2 RNA Rapid JANNA Orders Category Date Time Status ABG DRAW REQUEST Stat CARDIO 09/20/22 03:17 Ordered NEBULIZER TREATMENT Stat CARDIO 09/20/22 01:16 Ordered ABG COOX Stat LAB 03/12/23 03:17 Ordered CBC W/ AUTO DIFF Stat LAB 09/20/22 01:40 Completed CMP [COMPREHENSIVE METABOLIC PANEL] Stat LAB 09/20/22 01:40 Completed COVID [SARS COV-2 RNA RAPID JANNA] Stat LAB 09/20/22 01:40 Completed FLU A & B MOLECULAR [FLU A/B MOLECULAR] Stat LAB 09/20/22 01:40 Completed Ceftriaxone Sodium [Rocephin 2 gm Vial] MEDS 09/20/22 03:23 Discontinued 2 gm .ROUTE .STK-MED ONE Ceftriaxone Sodium [Rocephin 2 gm Vial] 2 gm MEDS 09/20/22 03:07 Active 0.9 % Sodium Chloride [Sodium Chloride 100Ml] 100 ml IV ONCE Ipratropium/Albuterol Neb [Duoneb] MEDS 09/20/22 01:15 Discontinued 3 ml NEB ONCE STA Methylprednisolone Sod Succ/Pf [Solu-Medrol 125 mg] MEDS 09/20/22 01:15 Discontinued 125 mg IM ONCE STA CXR [CHEST, 1V AP ONLY] Stat RADS 09/20/22 01:15 Completed Medications Generic Name Dose Route Start Last Admin Trade Name Freq PRN Reason Stop Dose Admin Ceftriaxone Sodium 2 gm/ 100 mls @ 100 mls/hr 09/20/22 03:07 09/20/22 03:27 Sodium Chloride IV 09/20/22 04:06 100 mls/hr ONCE ONE Administration Discontinued Medications Generic Name Dose Route Start Last Admin Trade Name Freq PRN Reason Stop Dose Admin Albuterol/Ipratropium 3 ml 09/20/22 01:15 09/20/22 01:50 Ipratropium/Albuterol Vial.Neb NEB 09/20/22 01:16 3 ml ONCE STA Administration Methylprednisolone Sodium Succinate 125 mg 09/20/22 01:15 09/20/22 01:40 Methylprednisolone Sod Succ/Pf 125 Mg/2 Ml Vial IM 09/20/22 01:16 125 mg ONCE STA Administration Vital Signs: Temp Pulse Resp BP Pulse Ox 09/20/22 01:10 97.6 F 76 18 151/68 H 93 L Discharge Plan Discharge Patient Disposition: ADMITTED INPATIENT Discharge Problem: Acute exacerbation of chronic obstructive pulmonary disease (COPD), Pneumonia Instructions: Bacterial Pneumonia (ED), Pneumonia (ED) Prescriptions: No Action latanoprost 1 DROP drops 1 drp RIGHTEYE BEDTIME clonidine HCl 0.1 MG tablet 0.1 mg PO BID PRN (Reason: b/p>170/90) acetaminophen 325 MG tablet 650 mg PO Q4H PRN (Reason: Pain) allopurinol 100 MG tablet 100 mg PO BID meclizine 25 MG tablet 25 mg PO Q8H PRN (Reason: Nausea / Vomiting) bisacodyl [Bisac-Evac] 10 MG suppository 10 mg [place] DAILY PRN (Reason: Constipation) isosorbide dinitrate 20 MG tablet 20 mg PO BID aspirin 81 MG tablet,chewable 81 mg PO DAILYWM digoxin [Digox] 125 MCG tablet 125 mcg PO DAILY losartan 100 MG tablet 100 mg PO DAILY diltiazem HCl 180 MG capsule,ext.rel 24h degradable 180 mg PO DAILY dicyclomine 10 MG capsule 10 mg PO DAILY cetirizine [Zyrtec] 10 MG capsule 10 mg PO DAILY magnesium hydroxide [Milk of Magnesia] 30 ML suspension 30 ml PO ONCE PRN (Reason: Constipation) dextromethorphan-guaifenesin 10 ML syrup 5 ml PO QID PRN (Reason: Cough) Qty: 100 0RF multivitamin with minerals [Multiple Vitamin-Minerals] 1 EACH tablet 1 ea PO DAILY benzocaine-menthol [Cepacol Sore Throat (jody-men)] 1 EACH lozenge 1 royer MM DIRECTED PRN (Reason: sore throat) sotalol [Betapace] 120 MG tablet 120 mg PO BID atorvastatin 20 MG tablet 20 mg PO BEDTIME hydrocodone-acetaminophen 1 EACH tablet 1 ea PO Q4HR PRN (Reason: Analgesia) Omeprazole 20 MG Tablet.Dr 40 mg PO DAILY loperamide [Anti-Diarrheal (loperamide)] 2 MG tablet 2 mg PO Q12H PRN (Reason: Diarrhea) dextran 70-hypromellose [Artificial Tears([id number])] 30 ML drops 30 ml BOTHEYES BID PRN (Reason: Dryness) [id number]-eunp 1 EACH tablet 1 ea PO Q4H PRN (Reason: HEADACHE) levofloxacin 500 MG tablet 500 mg PO QDAC Qty: 3 0RF furosemide 20 MG tablet 20 mg PO QDAC Qty: 30 0RF potassium chloride [K-Tab] 10 MEQ tablet extended release 10 meq PO DAILY Qty: 30 0RF prednisone 10 MG tablet 10 mg PO DAILYWM Qty: 3 0RF Did you review [place] [employer]PLEX OPERATOR for ALL controlled substances?: No ED Provider: JERRY HERNÁNDEZ Condition: Stable Physician Progress Note: []
[2022-09-20] MEDS ORDERED: SOLU-MEDROL 125 MG IM STA (01:15)
[2022-09-20] MEDS ORDERED: DUONEB NEB STA (01:15)
[2022-09-20 01:55] LABS: BASOPHILS # (AUTO) 0.1 K/uL (0-0.2); BASOPHILS % (AUTO) 0.7 % (0.0-3.0); EOSINOPHILS # (AUTO) 0.3 K/ul (0.0-0.7); EOSINOPHILS % (AUTO) 3.1 % (0.0-7.0); HEMATOCRIT 34.1 % (37.0-47.0); HEMOGLOBIN 10.4 g/dl (12.0-16.0); IMMATURE GRANULOCYTE # (AUTO) 0.2 (0.0-1.0); IMMATURE GRANULOCYTE % (AUTO) 1.6 % (0.0-5.0); LYMPHOCYTES # (AUTO) 0.8 K/uL (0.60-3.4); LYMPHOCYTES % (AUTO) 7.6 (10.0-50.0); MEAN CORPUSCULAR HEMOGLOBIN 30.4 pg (27.0-31.0); MEAN CORPUSCULAR HGB CONC 30.5 (31.8-35.4); MEAN CORPUSCULAR VOLUME 99.7 fl (81.0-99.0); MONOCYTES % (AUTO) 9.2 (0-10); NEUTROPHILS % (AUTO) 77.8 % (42.2-75.2); PLATELET COUNT 196 10^3/uL (140-440); RDW COEFFICIENT OF VARIATION 13.9 % (11.6-14.8); RED BLOOD COUNT 3.42 10^6/ul (4.20-5.40); WHITE BLOOD COUNT 10.31 K/ul (4.6-10.2)
[2022-09-20 03:01] LABS: ALBUMIN 3.92 g/dL (3.5-5.0); ALKALINE PHOSPHATASE 102.6 U/L (53-141); ASPARTATE AMINO TRANSFERASE 15.7 U/L (14-36); BILIRUBIN,TOTAL 0.57 mg/dL (0.2-1.3); BLOOD UREA NITROGEN 20.7 mg/dL (7-17); CALCIUM 9.88 mg/dL (8.4-10.2); CARBON DIOXIDE 29.4 mmol/L (22-30.0); CHLORIDE 103.2 mmol/L (98-107); CREATININE 1.3 mg/dL (0.60-1.30); GLUCOSE 107.7 mg/dL (74-106); MOLECULAR FLU A NEGATIVE BY NAAT (NEGATIVE); MOLECULAR FLU B NEGATIVE BY NAAT (NEGATIVE); POTASSIUM 4.59 mmol/L (3.5-5.1); SODIUM 136.8 mmol/L (134.5-145); TOTAL PROTEIN 6.38 g/dL (6.3-8.2)
--- NOTE | 2022-09-20 03:05 | DI ---
EXAM: SINGLE VIEW OF THE CHEST. History: Cough. Comparison: Chest radiograph 12/19/2018 FINDINGS: Heart is enlarged. Pacer wires. Atherosclerotic vascular calcifications. Shunt catheter tubing seen on the right. Left basilar opacity. Small left pleural effusion. No pneumothorax. No acute osseous abnormalities. Impression: 1. Cardiomegaly. 2. Left basilar atelectasis or pneumonia. 3. Small left pleural effusion
[2022-09-20] MEDS ORDERED: ROCEPHIN 2 GM VIAL 2 GM in SODIUM CHLORIDE 100ML 100 ML IV ONE (03:07)
[2022-09-20 03:17] LABS: SARS COV-2 RNA RAPID NAAT NEGATIVE (NEGATIVE)
[2022-09-20] MEDS ORDERED: ROCEPHIN 2 GM VIAL ONE (03:23)
[2022-09-20 03:33] LABS: ABG O2 HGB 92.2 % (95-100); BEecf 3.1 (-2.0-3.0); COHb 2.2 (0.5-1.5); HCO3 27.9 (21-28); MetHb 1.6 (0-1.5); TCO2 29.3 (19-24); sO2 93.5 % (94-98); tHb 10.8 g/dl (11.7-17.4)
--- NOTE | 2022-09-20 03:35 | PCM ---
Chief Complaint Chief Complaint: productive cough and dyspnea History of Present Illness History of Present Illness: Patient presented with productive cough and dyspnea for one day. CXR showed a left basilar pneumonia. Patient does have history of COPD. Review of Systems Constitutional: Reports No symptoms Eyes: Reports No symptoms Ears: Reports No symptoms Nose: Reports No symptoms Throat: Reports No symptoms Mouth: Reports No symptoms Respiratory: Reports Cough, Shortness of air and Wheeze Cardiovascular: Reports No symptoms Gastrointestinal: Reports No symptoms Genitourinary: Reports No symptoms Neurological: Reports No symptoms Musculoskeletal: Reports No symptoms Skin: Reports No symptoms Immunology: Reports No symptoms Hematology: Reports No symptoms Endocrine: Reports No symptoms Psychiatric: Reports No symptoms Allergies Allergies Allergy/AdvReac Type Severity Reaction Status Date / Time lactose AdvReac Verified 09/20/22 03:23 Penicillins AdvReac Verified 09/20/22 03:23 warfarin [From Coumadin] AdvReac Verified 09/20/22 03:23 PFS Surgical History History of heart surgery (03/30/18) Medications Medications: Medications Generic Name Dose Route Start Last Admin Trade Name Freq PRN Reason Stop Dose Admin Ceftriaxone Sodium 2 gm/ 100 mls @ 100 mls/hr 09/20/22 03:07 09/20/22 03:27 Sodium Chloride IV 09/20/22 04:06 100 mls/hr ONCE ONE Administration Body Composition Height: 5 ft 3 in Weight: 88 kg Body Mass Index (BMI): 34.3 Vital Signs Temperature: 97.6 F Pulse Rate: 76 Respiratory Rate: 18 Blood Pressure: 151/68 O2 Sat by Pulse Oximetry: 93 Physical Examination Appearance: Reports Ill-appearing, No pain distress, Well-nourished and Other (Patient is alert and in NAD. She is coughing throughout the examination.) Ill-appearing: Moderate Pain Distress: None Eyes: Reports DOROTHY and EOMI ENT: Reports Nose normal and Oropharynx normal Neck: Supple Respiratory: Reports Airway patent, Breath sounds equal, Breath sounds diminished and Wheezes Cardiovascular: Reports RRR, No rub and No murmur GI/: Reports Soft, Nontender, No masses, Bowel sounds normal and No Organomegaly Musculoskeletal: Reports Normal strength, ROM intact and No edema Skin: Reports Warm, Dry and Normal color Neurological: Reports Alert and Oriented Psychiatric: Reports Affect appropriate and Mood appropriate Lab/Tests/Diagnostic Imaging Lab/Tests/Diagnostic Imaging: Lab Review 09/20/22 09/20/22 09/20/22 01:40 01:40 01:40 WBC 10.31 H RBC 3.42 L Hgb 10.4 L Hct 34.1 L MCV 99.7 H MCH 30.4 MCHC 30.5 L RDW Coeff of Sue 13.9 Plt Count 196 Immature Gran % (Auto) 1.6 Neut % (Auto) 77.8 H Lymph % (Auto) 7.6 L [place] % (Auto) 9.2 Eos % (Auto) 3.1 Baso % (Auto) 0.7 Neut # (Auto) 8.0 H Lymph # (Auto) 0.8 [place] # (Auto) 1.0 Eos # (Auto) 0.3 Baso # (Auto) 0.1 Immature Gran # (Auto) 0.2 Sodium 136.8 Potassium 4.59 Chloride 103.2 Carbon Dioxide 29.4 Anion Gap 8.79 BUN 20.7 H Creatinine 1.30 Estimated GFR (MDRD) 39.00 BUN/Creatinine Ratio 15.92 Glucose 107.7 H Calcium 9.88 Total Bilirubin 0.57 AST 15.7 ALT 12.0 Alkaline Phosphatase 102.6 Total Protein 6.38 Albumin 3.92 Globulin 2.46 Albumin/Globulin Ratio 1.59 Influ A Molecular Assay Influ B Molecular Assay SARS CoV-2 RNA Rapid JANNA Negative 09/20/22 01:40 WBC RBC Hgb Hct MCV MCH MCHC RDW Coeff of Sue Plt Count Immature Gran % (Auto) Neut % (Auto) Lymph % (Auto) [place] % (Auto) Eos % (Auto) Baso % (Auto) Neut # (Auto) Lymph # (Auto) [place] # (Auto) Eos # (Auto) Baso # (Auto) Immature Gran # (Auto) Sodium Potassium Chloride Carbon Dioxide Anion Gap BUN Creatinine Estimated GFR (MDRD) BUN/Creatinine Ratio Glucose Calcium Total Bilirubin AST ALT Alkaline Phosphatase Total Protein Albumin Globulin Albumin/Globulin Ratio Influ A Molecular Assay Negative by naat Influ B Molecular Assay Negative by naat SARS CoV-2 RNA Rapid JANNA Orders Category Date Time Status ABG DRAW REQUEST Stat CARDIO 09/20/22 03:17 Ordered NEBULIZER TREATMENT Stat CARDIO 09/20/22 01:16 Ordered ABG COOX Stat LAB 09/20/22 03:17 Received CBC W/ AUTO DIFF Stat LAB 09/20/22 01:40 Completed CMP [COMPREHENSIVE METABOLIC PANEL] Stat LAB 09/20/22 01:40 Completed COVID [SARS COV-2 RNA RAPID JANNA] Stat LAB 09/20/22 01:40 Completed FLU A & B MOLECULAR [FLU A/B MOLECULAR] Stat LAB 09/20/22 01:40 Completed Ceftriaxone Sodium [Rocephin 2 gm Vial] MEDS 09/20/22 03:23 Discontinued 2 gm .ROUTE .STK-MED ONE Ceftriaxone Sodium [Rocephin 2 gm Vial] 2 gm MEDS 09/20/22 03:07 Active 0.9 % Sodium Chloride [Sodium Chloride 100Ml] 100 ml IV ONCE Ipratropium/Albuterol Neb [Duoneb] MEDS 09/20/22 01:15 Discontinued 3 ml NEB ONCE STA Methylprednisolone Sod Succ/Pf [Solu-Medrol 125 mg] MEDS 09/20/22 01:15 Discontinued 125 mg IM ONCE STA CXR [CHEST, 1V AP ONLY] Stat RADS 09/20/22 01:15 Completed Medications Generic Name Dose Route Start Last Admin Trade Name Freq PRN Reason Stop Dose Admin Ceftriaxone Sodium 2 gm/ 100 mls @ 100 mls/hr 09/20/22 03:07 09/20/22 03:27 Sodium Chloride IV 09/20/22 04:06 100 mls/hr ONCE ONE Administration Discontinued Medications Generic Name Dose Route Start Last Admin Trade Name Freq PRN Reason Stop Dose Admin Albuterol/Ipratropium 3 ml 09/20/22 01:15 09/20/22 01:50 Ipratropium/Albuterol Vial.Neb NEB 09/20/22 01:16 3 ml ONCE STA Administration Methylprednisolone Sodium Succinate 125 mg 09/20/22 01:15 09/20/22 01:40 Methylprednisolone Sod Succ/Pf 125 Mg/2 Ml Vial IM 09/20/22 01:16 125 mg ONCE STA Administration Assessment (1) Acute exacerbation of chronic obstructive pulmonary disease (COPD): Status: Acute Code(s): J44.1 - Chronic obstructive pulmonary disease with (acute) exacerbation SNOMED Code(s): 887865458 (2) Pneumonia: Status: Acute Code(s): J18.9 - Pneumonia, unspecified organism SNOMED Code(s): 296602499 Plan Plan: Patient will be admitted for IV antibiotics, IV steroids and neb treatments.
[2022-09-20] MEDS ORDERED: IMODIUM PO PRN (03:40)
[2022-09-20] MEDS ORDERED: DULCOLAX RC PRN (03:40)
[2022-09-20] MEDS ORDERED: CATAPRES PO PRN (03:40)
[2022-09-20] MEDS ORDERED: CEPACOL SORE THROAT LOZENGE MUCOUSMEMB PRN ×2 (03:40→07:30)
[2022-09-20] MEDS ORDERED: ARTIFICIAL TEARS DROPS OP PRN (03:55)
[2022-09-20] MEDS ORDERED: LEVAQUIN 750 MG/150 ML D5W 750 MG/150 ML BAG IV SCH (04:00)
[2022-09-20] MEDS ORDERED: ROCEPHIN 1 GM/50 ML D5W 1 GM/50 ML BAG IV SCH (04:00)
[2022-09-20] MEDS: SODIUM CHLORIDE 1,000 ML IV SCH ×2 (04:24→21:17)
[2022-09-20 04:47] VITALS: BMI 32.9
[2022-09-20] MEDS: DUONEB NEB SCH ×4 (05:25→23:20)
[2022-09-20] MEDS: LASIX TAB PO SCH (05:36)
[2022-09-20] MEDS: PRILOSEC PO SCH (05:37)
--- NOTE | 2022-09-20 08:26 | PCM.PROG ---
Date Seen by Provider: 09/20/22 Time Seen by Provider: 08:23 Subjective: this lady of dr saldana admitted to hospitalist service for pneumonia according to dr jain---no new patient or nursing staff concerns Objective: Vitals: T=97.5 F, P=118, R=20, RJ=796/76, SPO2=94 HEENT: [] Neck: [supple] Lungs: [scattered rhonchi] CVS: [rrr] Abdomen: [soft nt ] Extremities: [] Neurological: [intact] Skin: [] Lab/Tests/Diagnostic Imaging: [] (1) Acute exacerbation of chronic obstructive pulmonary disease (COPD): Status: Acute Code(s): J44.1 - Chronic obstructive pulmonary disease with (acute) exacerbation SNOMED Code(s): 121381139 (2) Pneumonia: Status: Acute Code(s): J18.9 - Pneumonia, unspecified organism SNOMED Code(s): 807872379 Plan: will check labs in am--noted pleural effusion---will check bnp and ask for echo---repeat cxr tomorrow--i have asked pharmacy to review her antibiotic profile since she is a custodial patient---dvt prophlyaxis
[2022-09-20] MEDS: NORCO 7.5-325 PO PRN ×3 (08:48→20:18)
[2022-09-20] MEDS: SORBITRATE PO SCH ×2 (08:49→20:10)
[2022-09-20] MEDS: ASPIRIN CHEWABLE PO SCH (08:49)
[2022-09-20] MEDS: CARDIZEM CD PO SCH (08:50)
[2022-09-20] MEDS: TOPROL XL PO SCH (08:50)
[2022-09-20] MEDS: CLARITIN PO SCH (08:50)
[2022-09-20] MEDS: APRESOLINE PO SCH ×2 (08:50→20:11)
[2022-09-20] MEDS: SOLU-MEDROL 125 MG IVP SCH ×3 (08:51→21:03)
[2022-09-20] MEDS: COZAAR PO SCH (08:51)
[2022-09-20] MEDS ORDERED: ZITHROMAX 500 MG in SODIUM CHLORIDE 250 ML IV SCH (09:00)
[2022-09-20] MEDS: MAXIPIME 2 GM/50 ML D5W 2 GM/50 ML BAG IV SCH (20:10)
[2022-09-20] MEDS: XALATAN RIGHTEYE SCH (20:10)
[2022-09-20] MEDS: CRESTOR PO SCH (20:11)
[2022-09-20] MEDS: NON-FORMULARY MEDICATION (Melatonin 5 mg Tablet) PO SCH (20:28)
[2022-09-20] MEDS: ZITHROMAX 500 MG in SODIUM CHLORIDE 250 ML IV SCH (21:10)
[2022-09-21] MEDS: DUONEB NEB SCH ×4 (04:50→23:00)
[2022-09-21 05:06] LABS: HEMATOCRIT 30.3 % (37.0-47.0); HEMOGLOBIN 9.4 g/dl (12.0-16.0); MEAN CORPUSCULAR HEMOGLOBIN 30.1 pg (27.0-31.0); MEAN CORPUSCULAR VOLUME 97.1 fl (81.0-99.0); PLATELET COUNT 181 10^3/uL (140-440); RED BLOOD COUNT 3.12 10^6/ul (4.20-5.40); WHITE BLOOD COUNT 9.08 K/ul (4.6-10.2)
[2022-09-21 05:21] LABS: ALBUMIN 3.65 g/dL (3.5-5.0); ALKALINE PHOSPHATASE 91.2 U/L (53-141); ASPARTATE AMINO TRANSFERASE 17.8 U/L (14-36); BILIRUBIN,TOTAL 0.16 mg/dL (0.2-1.3); BLOOD UREA NITROGEN 21.7 mg/dL (7-17); CALCIUM 9.91 mg/dL (8.4-10.2); CARBON DIOXIDE 26.6 mmol/L (22-30.0); CREATININE 1.2 mg/dL (0.60-1.30); GLUCOSE 182.3 mg/dL (74-106); POTASSIUM 4.09 mmol/L (3.5-5.1); SODIUM 137.1 mmol/L (134.5-145); TOTAL PROTEIN 6.06 g/dL (6.3-8.2)
[2022-09-21 05:25] LABS: ANISOCYTOSIS NOT PRESENT (NOT PRESENT)
[2022-09-21] MEDS: SOLU-MEDROL 125 MG IVP SCH ×3 (05:28→20:50)
[2022-09-21] MEDS: LASIX TAB PO SCH (05:39)
[2022-09-21] MEDS: PRILOSEC PO SCH (05:40)
[2022-09-21] MEDS: COZAAR PO SCH (08:42)
[2022-09-21] MEDS: ASPIRIN CHEWABLE PO SCH (08:43)
[2022-09-21] MEDS: CARDIZEM CD PO SCH (08:43)
[2022-09-21] MEDS: APRESOLINE PO SCH ×2 (08:43→20:49)
[2022-09-21] MEDS: TOPROL XL PO SCH (08:43)
[2022-09-21] MEDS: SORBITRATE PO SCH ×2 (08:43→20:49)
[2022-09-21] MEDS: CLARITIN PO SCH (08:44)
[2022-09-21] MEDS: MAXIPIME 2 GM/50 ML D5W 2 GM/50 ML BAG IV SCH ×2 (08:57→20:04)
[2022-09-21] MEDS: SODIUM CHLORIDE 1,000 ML IV SCH ×2 (08:59→12:25)
--- NOTE | 2022-09-21 09:47 | PCM.PROG ---
Date Seen by Provider: 09/21/22 Time Seen by Provider: 09:20 Subjective: No complaints. Cough persists. Objective: Vitals: T=97.1 F, P=107, R=18, GZ=654/57, SPO2=95 Alert and in NAD. Intermittently coughing during exam. No respiratory distress. HEENT: [] Neck: []Supple, no JVD. Lungs: [] Chest clear. Mild decrease BS at left base. CVS: [] RRR Abdomen: [] Extremities: [] Neurological: []Intact. Skin: [] Lab/Tests/Diagnostic Imaging: [] (1) Acute exacerbation of chronic obstructive pulmonary disease (COPD): Status: Acute Code(s): J44.1 - Chronic obstructive pulmonary disease with (acute) exacerbation SNOMED Code(s): 300951510 (2) Pneumonia: Status: Acute Code(s): J18.9 - Pneumonia, unspecified organism SNOMED Code(s): 567171391 Plan: Improving. Continue same. Possibly home tomorrow.
[2022-09-21] MEDS: NORCO 7.5-325 PO PRN (10:44)
[2022-09-21] MEDS: CRESTOR PO SCH (20:49)
[2022-09-21] MEDS: XALATAN RIGHTEYE SCH ×2 (20:51→20:52)
[2022-09-21] MEDS: ZITHROMAX 500 MG in SODIUM CHLORIDE 250 ML IV SCH (20:56)
[2022-09-21] MEDS: NON-FORMULARY MEDICATION (Melatonin 5 mg Tablet) PO SCH (20:56)
[2022-09-21] MEDS ORDERED: ROCEPHIN 1 GM/50 ML D5W 1 GM/50 ML BAG IV SCH (21:00)
[2022-09-21] MEDS ORDERED: LEVAQUIN 750 MG/150 ML D5W 750 MG/150 ML BAG IV SCH (21:00)
[2022-09-22] MEDS: NORCO 7.5-325 PO PRN (00:31)
[2022-09-22] MEDS: DUONEB NEB SCH ×2 (04:50→11:06)
[2022-09-22 05:16] LABS: HEMATOCRIT 30.1 % (37.0-47.0); HEMOGLOBIN 9.5 g/dl (12.0-16.0); MEAN CORPUSCULAR HEMOGLOBIN 30.4 pg (27.0-31.0); MEAN CORPUSCULAR HGB CONC 31.6 (31.8-35.4); MEAN CORPUSCULAR VOLUME 96.5 fl (81.0-99.0); PLATELET COUNT 186 10^3/uL (140-440); RDW COEFFICIENT OF VARIATION 14.3 % (11.6-14.8); RED BLOOD COUNT 3.12 10^6/ul (4.20-5.40); WHITE BLOOD COUNT 12.13 K/ul (4.6-10.2)
[2022-09-22] MEDS: SOLU-MEDROL 125 MG IVP SCH ×2 (05:22→13:32)
[2022-09-22 05:28] LABS: ALBUMIN 3.56 g/dL (3.5-5.0); ALKALINE PHOSPHATASE 82.9 U/L (53-141); ASPARTATE AMINO TRANSFERASE 27.2 U/L (14-36); BILIRUBIN,TOTAL 0.27 mg/dL (0.2-1.3); BLOOD UREA NITROGEN 25.7 mg/dL (7-17); CALCIUM 10.1 mg/dL (8.4-10.2); CARBON DIOXIDE 25.6 mmol/L (22-30.0); CHLORIDE 107.3 mmol/L (98-107); CREATININE 1.21 mg/dL (0.60-1.30); GLUCOSE 147.2 mg/dL (74-106); POTASSIUM 3.61 mmol/L (3.5-5.1); SODIUM 136.6 mmol/L (134.5-145); TOTAL PROTEIN 5.85 g/dL (6.3-8.2)
[2022-09-22 05:30] LABS: ANISOCYTOSIS NOT PRESENT (NOT PRESENT)
[2022-09-22] MEDS: PRILOSEC PO SCH (05:38)
[2022-09-22] MEDS: LASIX TAB PO SCH (05:38)
[2022-09-22 05:42] VITALS: BP 134/71; TEMP 97.1
[2022-09-22] MEDS: SODIUM CHLORIDE 1,000 ML IV SCH ×2 (07:42→09:12)
[2022-09-22] MEDS: MAXIPIME 2 GM/50 ML D5W 2 GM/50 ML BAG IV SCH (09:08)
[2022-09-22] MEDS: SORBITRATE PO SCH (09:09)
[2022-09-22] MEDS: ASPIRIN CHEWABLE PO SCH (09:09)
[2022-09-22] MEDS: COZAAR PO SCH (09:09)
[2022-09-22] MEDS: APRESOLINE PO SCH (09:09)
[2022-09-22] MEDS: CLARITIN PO SCH (09:09)
[2022-09-22] MEDS: CARDIZEM CD PO SCH (09:10)
[2022-09-22] MEDS: TOPROL XL PO SCH (09:10)
--- NOTE | 2022-09-22 11:41 | RS.BEDDYS ---
Subjective Date of Evaluation: 09/22/22 Diagnosis: Pneumonia, SOB Current Level of Function: This is an 87 year old female whom resides in a fdc. She was admitted for pneumonia and SOB. She is confused with orientation to place/time, but can orient to situational conversation and follow simple directions from medical staff. At this time, a bedside evaluation will be completed to determine safer and least restrictive diet texture and rule out potential risks for penetration/aspiration. Current Diet: Regular diet; thin liquids; medications whole with water. Current Subjective/complaints:: Prior to entering the patient's room the nurse and CM reported that she had been 'choked up' on bread texture. The attending nurse reported that she has been intermittently confused and had yelled out sometimes this date. The patient was upright in the recliner chair upon TRAVELING BUYER entry. Breakfast tray was in place and nurse was preparing medications for administration. The patient was pleasant, cooperative, and talkative. She was eating and talking consecutively and frequently placing bites of food into mouth prior to swallowing first bite; and she continued to speak with food in her mouth. The TRAVELING BUYER explained her reasoning for swallow therapy and the patient agreed she 'could learn something about safe swallowing." When asked about her swallowing difficulty, the patient reported meat and bread textures. The patient referred to her hiatal hernia and also discussed her edentulous status that interferes with mastication. The TRAVELING BUYER reported to the nurse to downgrade diet to soft and bite-sized. Medical History Comments:: COPD, SOB, cough, pneumonia, weakness, bells palsy, chest pain. Hx Home Medications: Refer to medications for complete list. Patient's Goals: To consume safer and least restrictive diet General Information - General Denture Type: Not Applicable (Has dentures, but does not wear them during PO) Patient Orientation: Person, Place (Given verbal prompts; waxes/wanes), Situation (given verbal prompts) Ability to Follow Directions: Good (needs repetition) Oral Expression Ability: Mild Impairment (Slurred speech quality) - Voice Voice Quality: Breathy Oral-Facial Assessment - Face Face Comment: Hx of bells palsy - Dental/Labial Teeth Comment: Edentulous Lip Protrusion: Normal Lip Retraction: Normal Puff Cheeks: Reduced Strength - Lingual Protrusion: Normal Retraction: Normal Tip Lateralization: Reduced ROM Repeated Tip Lateralization: Reduced ROM Tip Elevation: Reduced ROM Repeated Tip Elevation: Reduced ROM Comments: Lingual movements were slowed and weak. Lingual surface was moist and did not present with xerostomia. Patient's quality of speech demonstrated weakness with tongue coordination/ROM. - Palate and Pharynx Soft Palate Description: Normal Color Hard Palate Description: Normal Color - Comments/Additional Info. Comments:: Pt stated her lower gums were sore from trying to wear a new set of dentures. TRAVELING BUYER assessed for thrush and none identified. Food Presentation - Solids Food Presented: Pureed (Spoon fed, slow A-P movement. No overt s/s of aspiration) Behaviors/Comments: No deficits, functional A-P transfer. No overt s/s of aspiration. Food Presented: Chopped (minced and moist eggs self-fed; no overt s/s of aspiration) Behaviors/Comments: Self- fed and did not demonstrate difficulty with this texture. She had minimal residuals on lingual surface, and no pocketing was observed. No overt s/s of aspiration. Pt demonstrated minimal to no bolus control and presented at the bedside with piecemeal deglutition. Food Presented: Regular (bread-toasted self-fed; no overt s/s of aspiration) Behaviors/Comments: The patient had multiple swallows with bread texture. She did not report difficulty with toast, but reported that bread textures 'get too big inside my mouth.' she also verbalized awareness to big bites that are 'hard to swallow." - Liquids Liquid Presented: Thin (Via open cup and straw) Behaviors/Comments: Pt took sips of thin liquids with meds, regular, minced and moist, and puree trials. She had no overt s/s of aspiration. Slight delay of 1 second in swallow initiation that was inconsistent. The patient took sips of thin H20 via straw and no overt s/s of aspiration. Pt had decreased LE for air way protection. 2x swallow response was observed frequently during drinks. - Recommendations: Dysphagia Evaluation Dietary Recommendations: Soft and Bite-Sized, Thin Comments:: If pt wants to have toast for breakfast, she may consume toast covered in butter and jellies. No other bread textures on the meal tray. Dysphagia Swallow Precautions/Strategies: Sitting Upright (90 deg), Double Swallow, Small Bites and Sips Comments:: Meal tray set-up; intermittent supervision; encourage reduced talking with eating; complete oral care post PO intake or prior to laying flat in bed. Monitor lungs for increased chest congestion. - Summary Dysphagia Evaluation Summary: The patient presented with oral and pharyngeal phase deficits as characterized by lingual coordination/ROM, and laryngeal elevation. The patient had mild oral phase deficits including decreased bolus manipulation, coordination, and A-P movement; no pocketing of the bolus was observed, pt independently cleared bilateral sulcus or utilized liquid washes. Pharyngeal phase demonstrated mild deficits including 1 second swallow delay, multiple swallow responses, and mild-moderately decreased LE for airway protection. The patient demonstrated no overt s/s of aspiration with regular, minced and moist or puree diet textures. With thin liquids via straw or open cup, the patient safely consumed the texture with minimal risks for penetration/aspiration due to delay in swallow initiation. At this time, the TRAVELING BUYER recommends the patient downgrade diet to soft and bite-sized diet and continue thin liquids. Medications to be presented 2-3 at a time with supervision. During PO intake, please set-up meal tray and utilize intermittent monitoring to decrease impulsive eating or large bite sizes. Continue to monitor lung sounds post meals to listen for increased chest congestion. The patient does have risks for aspiration/penetration due to cognition. At this time, TRAVELING BUYER will complete swallow therapy to address safe swallow/aspiration precautions, diet monitoring, and trial LE exercises. Further Therapy Indicated?: Yes Rehab Potential: Good Functional Reporting G Codes: n/a Severity Impairment Rationale: n/a Short Term Goals Goal #1: Pt consume soft and bite-sized diet w/ thin liquids w/o overt s/s asp. Goal to be met by: 09/25/22 Goal #2: Pt verb/demo safe swallow/comp swallow strategies given visual aids Goal to be met by: 09/25/22 Goal #3: Trial LE exercises Goal to be met by: 09/25/22 Goal #4: Monitor speech/language/cognition Goal to be met by: 09/25/22 Goal #5: Trial diaphragmatic breathing exercises to improve breath support [facility] Goals Goal #1: Consume safer and least restrictive diet w/ min to no overt s/s of asp Goal to be met by: 09/25/22 Plan Duration of Treatment: 1 Week Frequency of Treatment: 2-3x/week Anticipated Discharge Destination: [facility] - Treatment Code (1) Dysphagia Code(s): R13.10 - Dysphagia, unspecified Qualifiers: Dysphagia type: oropharyngeal phase Qualified Code(s): R13.12 - Dysphagia, oropharyngeal phase (2) COPD (chronic obstructive pulmonary disease) Code(s): J44.9 - Chronic obstructive pulmonary disease, unspecified Qualifiers: COPD type: unspecified COPD Qualified Code(s): J44.9 - Chronic obstructive pulmonary disease, unspecified (3) Pneumonia Code(s): J18.9 - Pneumonia, unspecified organism
--- NOTE | 2022-09-22 15:44 | PCM.DC ---
Final Diagnosis: 1. PNEUMONIA 2. COPD EXACERBATION. Physical Exam Appearance: Well-appearing Ill-appearing: None Pain Distress: None Eyes: DOROTHY, EOMI and Conjunctiva clear ENT: Nose normal Neck: Not Examined Respiratory: Breath sounds diminished and Wheezes Cardiovascular: RRR and Pulses normal GI/: Soft and Nontender Musculoskeletal: Normal strength, ROM intact and No edema Skin: Warm, Dry and Normal color Neurological: Motor intact, Alert and Oriented Psychiatric: Affect appropriate, Mood appropriate and Anxious (1) COPD (chronic obstructive pulmonary disease): Status: Inactive Code(s): J44.9 - Chronic obstructive pulmonary disease, unspecified SNOMED Code(s): 76331070 Qualifiers: COPD type: unspecified COPD Qualified Code(s): J44.9 - Chronic obstructive pulmonary disease, unspecified (2) Pneumonia: Status: Acute Code(s): J18.9 - Pneumonia, unspecified organism SNOMED Code(s): 668301624 (3) Dysphagia: Status: Acute Code(s): R13.10 - Dysphagia, unspecified SNOMED Code(s): 84900029 Qualifiers: Dysphagia type: oropharyngeal phase Qualified Code(s): R13.12 - Dysphagia, oropharyngeal phase Reason for Hospitalization: Patient is an 87 year old female who was admitted 3 days ago with cough x 1 day with dyspnea. She was found to have left basilar pneumonia. Was there more admitted for COPD exacerbation and Pneumonia for IV antibiotic treatment Prognosis/Condition at Discharge: Significantly improved with no shortness of breath. Back to her baseline breathing Medications at Discharge: New medications * Cefpodoxime * Prednisone * Albuterol MDI continue other previous home medications Lab/Diagnostics: Comparison: Chest radiograph 12/19/2018 FINDINGS: Heart is enlarged. Pacer wires. Atherosclerotic vascular calcifications. Shunt catheter tubing seen on the right. Left basilar opacity. Small left pleural effusion. No pneumothorax. No acute osseous abnormalities. Comprehensive Lab Summary 09/20/22 09/20/22 09/20/22 Range/Units 01:40 01:40 01:40 WBC 10.31 H (4.6-10.2) K/ul RBC 3.42 L (4.20-5.40) 10^6/ul Hgb 10.4 L (12.0-16.0) g/dl Hct 34.1 L (37.0-47.0) % MCV 99.7 H (81.0-99.0) fl MCH 30.4 (27.0-31.0) pg MCHC 30.5 L (31.8-35.4) RDW Coeff of Sue 13.9 (11.6-14.8) % Plt Count 196 (140-440) 10^3/uL Immature Gran % (Auto) 1.6 (0.0-5.0) % Neut % (Auto) 77.8 H (42.2-75.2) % Lymph % (Auto) 7.6 L (10.0-50.0) [place] % (Auto) 9.2 (0-10) Eos % (Auto) 3.1 (0.0-7.0) % Baso % (Auto) 0.7 (0.0-3.0) % Neut # (Auto) 8.0 H (2.0-6.9) K/ul Lymph # (Auto) 0.8 (0.60-3.4) K/uL [place] # (Auto) 1.0 (0.4-2.0) K/uL Eos # (Auto) 0.3 (0.0-0.7) K/ul Baso # (Auto) 0.1 (0-0.2) K/uL Immature Gran # (Auto) 0.2 (0.0-1.0) Neutrophils % (Manual) (42.2-75.2) % Lymphocytes % (Manual) (10.0-50.0) % Monocytes % (Manual) (0.0-10.0) % Anisocytosis (NOT PRESENT) Puncture Site Base Excess (-2.0-3.0) O2 Saturation (94-98) % ABG pH (7.35-7.45) ABG pCO2 (35-45) mmHg ABG pO2 (85-100) mmHg ABG HCO3 (21-28) ABG Total CO2 (19-24) Chapo Test Hemoglobin (0-1.5) Oxyhemoglobin (95-100) % Carboxyhemoglobin (0.5-1.5) Total Hemoglobin (11.7-17.4) g/dl Sodium 136.8 (134.5-145) mmol/L Potassium 4.59 (3.5-5.1) mmol/L Chloride 103.2 (98-107) mmol/L Carbon Dioxide 29.4 (22-30.0) mmol/L Anion Gap 8.79 BUN 20.7 H (7-17) mg/dL Creatinine 1.30 (0.60-1.30) mg/dL Estimated GFR (MDRD) 39.00 mL/min BUN/Creatinine Ratio 15.92 Glucose 107.7 H (74-106) mg/dL Calcium 9.88 (8.4-10.2) mg/dL Total Bilirubin 0.57 (0.2-1.3) mg/dL AST 15.7 (14-36) U/L ALT 12.0 (0-35) U/L Alkaline Phosphatase 102.6 (53-141) U/L NT-Pro-B Natriuret Pep (0-124) pg/mL Total Protein 6.38 (6.3-8.2) g/dL Albumin 3.92 (3.5-5.0) g/dL Globulin 2.46 Albumin/Globulin Ratio 1.59 Influ A Molecular Assay (NEGATIVE) Influ B Molecular Assay (NEGATIVE) SARS CoV-2 RNA Rapid JANNA Negative (NEGATIVE) 09/20/22 09/20/22 09/20/22 Range/Units 01:40 03:17 08:47 WBC (4.6-10.2) K/ul RBC (4.20-5.40) 10^6/ul Hgb (12.0-16.0) g/dl Hct (37.0-47.0) % MCV (81.0-99.0) fl MCH (27.0-31.0) pg MCHC (31.8-35.4) RDW Coeff of Sue (11.6-14.8) % Plt Count (140-440) 10^3/uL Immature Gran % (Auto) (0.0-5.0) % Neut % (Auto) (42.2-75.2) % Lymph % (Auto) (10.0-50.0) [place] % (Auto) (0-10) Eos % (Auto) (0.0-7.0) % Baso % (Auto) (0.0-3.0) % Neut # (Auto) (2.0-6.9) K/ul Lymph # (Auto) (0.60-3.4) K/uL [place] # (Auto) (0.4-2.0) K/uL Eos # (Auto) (0.0-0.7) K/ul Baso # (Auto) (0-0.2) K/uL Immature Gran # (Auto) (0.0-1.0) Neutrophils % (Manual) (42.2-75.2) % Lymphocytes % (Manual) (10.0-50.0) % Monocytes % (Manual) (0.0-10.0) % Anisocytosis (NOT PRESENT) Puncture Site Rrad Base Excess 3.1 H (-2.0-3.0) O2 Saturation 93.5 L (94-98) % ABG pH 7.40 (7.35-7.45) ABG pCO2 45.0 (35-45) mmHg ABG pO2 69.0 L (85-100) mmHg ABG HCO3 27.9 (21-28) ABG Total CO2 29.3 H (19-24) Chapo Test + Hemoglobin 1.6 H (0-1.5) Oxyhemoglobin 92.2 L (95-100) % Carboxyhemoglobin 2.2 H (0.5-1.5) Total Hemoglobin 10.8 L (11.7-17.4) g/dl Sodium (134.5-145) mmol/L Potassium (3.5-5.1) mmol/L Chloride (98-107) mmol/L Carbon Dioxide (22-30.0) mmol/L Anion Gap BUN (7-17) mg/dL Creatinine (0.60-1.30) mg/dL Estimated GFR (MDRD) mL/min BUN/Creatinine Ratio Glucose (74-106) mg/dL Calcium (8.4-10.2) mg/dL Total Bilirubin (0.2-1.3) mg/dL AST (14-36) U/L ALT (0-35) U/L Alkaline Phosphatase (53-141) U/L NT-Pro-B Natriuret Pep 3320 H (0-124) pg/mL Total Protein (6.3-8.2) g/dL Albumin (3.5-5.0) g/dL Globulin Albumin/Globulin Ratio Influ A Molecular Assay Negative by naat (NEGATIVE) Influ B Molecular Assay Negative by naat (NEGATIVE) SARS CoV-2 RNA Rapid JANNA (NEGATIVE) 09/21/22 09/21/22 09/22/22 Range/Units 04:46 04:46 05:03 WBC 9.08 12.13 H (4.6-10.2) K/ul RBC 3.12 L 3.12 L (4.20-5.40) 10^6/ul Hgb 9.4 L 9.5 L (12.0-16.0) g/dl Hct 30.3 L 30.1 L (37.0-47.0) % MCV 97.1 96.5 (81.0-99.0) fl MCH 30.1 30.4 (27.0-31.0) pg MCHC 31.0 L 31.6 L (31.8-35.4) RDW Coeff of Sue 14.0 14.3 (11.6-14.8) % Plt Count 181 186 (140-440) 10^3/uL Immature Gran % (Auto) (0.0-5.0) % Neut % (Auto) (42.2-75.2) % Lymph % (Auto) (10.0-50.0) [place] % (Auto) (0-10) Eos % (Auto) (0.0-7.0) % Baso % (Auto) (0.0-3.0) % Neut # (Auto) (2.0-6.9) K/ul Lymph # (Auto) (0.60-3.4) K/uL [place] # (Auto) (0.4-2.0) K/uL Eos # (Auto) (0.0-0.7) K/ul Baso # (Auto) (0-0.2) K/uL Immature Gran # (Auto) (0.0-1.0) Neutrophils % (Manual) 95.0 H 95.0 H (42.2-75.2) % Lymphocytes % (Manual) 1.0 L 2.0 L (10.0-50.0) % Monocytes % (Manual) 4.0 3.0 (0.0-10.0) % Anisocytosis Not present Not present (NOT PRESENT) Puncture Site Base Excess (-2.0-3.0) O2 Saturation (94-98) % ABG pH (7.35-7.45) ABG pCO2 (35-45) mmHg ABG pO2 (85-100) mmHg ABG HCO3 (21-28) ABG Total CO2 (19-24) Chapo Test Hemoglobin (0-1.5) Oxyhemoglobin (95-100) % Carboxyhemoglobin (0.5-1.5) Total Hemoglobin (11.7-17.4) g/dl Sodium 137.1 (134.5-145) mmol/L Potassium 4.09 (3.5-5.1) mmol/L Chloride 104.0 (98-107) mmol/L Carbon Dioxide 26.6 (22-30.0) mmol/L Anion Gap 10.59 BUN 21.7 H (7-17) mg/dL Creatinine 1.20 (0.60-1.30) mg/dL Estimated GFR (MDRD) 42.00 mL/min BUN/Creatinine Ratio 18.08 Glucose 182.3 H (74-106) mg/dL Calcium 9.91 (8.4-10.2) mg/dL Total Bilirubin 0.16 L (0.2-1.3) mg/dL AST 17.8 (14-36) U/L ALT 14.0 (0-35) U/L Alkaline Phosphatase 91.2 (53-141) U/L NT-Pro-B Natriuret Pep (0-124) pg/mL Total Protein 6.06 L (6.3-8.2) g/dL Albumin 3.65 (3.5-5.0) g/dL Globulin 2.41 Albumin/Globulin Ratio 1.51 Influ A Molecular Assay (NEGATIVE) Influ B Molecular Assay (NEGATIVE) SARS CoV-2 RNA Rapid JANNA (NEGATIVE) 09/22/22 Range/Units 05:03 WBC (4.6-10.2) K/ul RBC (4.20-5.40) 10^6/ul Hgb (12.0-16.0) g/dl Hct (37.0-47.0) % MCV (81.0-99.0) fl MCH (27.0-31.0) pg MCHC (31.8-35.4) RDW Coeff of Sue (11.6-14.8) % Plt Count (140-440) 10^3/uL Immature Gran % (Auto) (0.0-5.0) % Neut % (Auto) (42.2-75.2) % Lymph % (Auto) (10.0-50.0) [place] % (Auto) (0-10) Eos % (Auto) (0.0-7.0) % Baso % (Auto) (0.0-3.0) % Neut # (Auto) (2.0-6.9) K/ul Lymph # (Auto) (0.60-3.4) K/uL [place] # (Auto) (0.4-2.0) K/uL Eos # (Auto) (0.0-0.7) K/ul Baso # (Auto) (0-0.2) K/uL Immature Gran # (Auto) (0.0-1.0) Neutrophils % (Manual) (42.2-75.2) % Lymphocytes % (Manual) (10.0-50.0) % Monocytes % (Manual) (0.0-10.0) % Anisocytosis (NOT PRESENT) Puncture Site Base Excess (-2.0-3.0) O2 Saturation (94-98) % ABG pH (7.35-7.45) ABG pCO2 (35-45) mmHg ABG pO2 (85-100) mmHg ABG HCO3 (21-28) ABG Total CO2 (19-24) Chapo Test Hemoglobin (0-1.5) Oxyhemoglobin (95-100) % Carboxyhemoglobin (0.5-1.5) Total Hemoglobin (11.7-17.4) g/dl Sodium 136.6 (134.5-145) mmol/L Potassium 3.61 (3.5-5.1) mmol/L Chloride 107.3 H (98-107) mmol/L Carbon Dioxide 25.6 (22-30.0) mmol/L Anion Gap 7.31 BUN 25.7 H (7-17) mg/dL Creatinine 1.21 (0.60-1.30) mg/dL Estimated GFR (MDRD) 42.00 mL/min BUN/Creatinine Ratio 21.23 Glucose 147.2 H (74-106) mg/dL Calcium 10.10 (8.4-10.2) mg/dL Total Bilirubin 0.27 (0.2-1.3) mg/dL AST 27.2 (14-36) U/L ALT 16.0 (0-35) U/L Alkaline Phosphatase 82.9 (53-141) U/L NT-Pro-B Natriuret Pep (0-124) pg/mL Total Protein 5.85 L (6.3-8.2) g/dL Albumin 3.56 (3.5-5.0) g/dL Globulin 2.29 Albumin/Globulin Ratio 1.55 Influ A Molecular Assay (NEGATIVE) Influ B Molecular Assay (NEGATIVE) SARS CoV-2 RNA Rapid JANNA (NEGATIVE) Impression: 1. Cardiomegaly. 2. Left basilar atelectasis or pneumonia. 3. Small left pleural effusion Education Provided to Patient and Family: Per Nursing Follow-ups: With PCP in 1-2 week Discharge Disposition: Group Home Care Facility Hospital Course: Patient responded well to medications including antibiotics, Steroids and parul athing treatments. Plan: Discharge back to senior living to complete antibiotics as above
--- NOTE | 2022-09-23 07:02 | ECHO2D ---
Date of Exam: 09/20/2022 Ordering Physician: ELIANAIST/ DR. LIU Room #: 104 Reason for Echo: SOB, CARDIOMEGALY, A-FIB, PACEMAKER M-Mode Normal Adult Results LV Dimensions Normal Adult Results AoV Opening excursions >1.6 >1.6 LVEDD-base- 3.5-5.8 3.8 Ao root dimensions 2.0-3.7 2.7 LVESD-base- 3.1-4.6 L. Atrium dimensions 1.9-3.8 5.0 Post. Wall thickness 0.8-1.1 1.2 IV septum (thickness) 0.7-1.2 1.3 Post. Wall excursion 0.72-1.3 NORMAL Septal motion 0.6 Systolic motion R. Ventricular cavity 1.5-2.0 NORMAL LVEF 60% 65% Paradoxical septal wall motion NORMAL 2-D : 2-D M Mode Echocardiogram was performed using apical four chamber and left parasternal long and short axis views. Mitral, tricuspid and aortic valves appear to be normal. Contractility of the left ventricle seems to be normal, so is the cavity size. ENLARGED LEFT ATRIAL CAVITY. Aortic root appears to be normal. There is no pericardial effusion. There is no thrombus noted in the left ventricle or left atrial cavity. HYPOKINETIC SEPTAL WALL M-MODE: MV: NORMAL AV: NORMAL TV: NORMAL PV: NORMAL CHAMBER SIZE: ENLARGED LEFT ATRIAL CAVITY WALL MOTION: HYPOKINETIC SEPTAL WALL PERICARDIUM: NORMAL INTERPRETATION: 1. HYPOKINETIC SEPTAL WALL 2. LEFT VENTRICLE HYPERTROPHY WITH ENLARGED LEFT ATRIAL CAVITY 3. VALVES --NORMAL 4. NORMAL LEFT VENTRICLE SIZE [facility] FROM [facility]
== END 2022-09-22 13:25 | DRG 194 ==
LOC: ED 01:07 → MEDSURG A 03:40
PROVIDERS: ADMIT Surgery; ATTEND Internal Medicine Geriatric Medicine
DX: Z79.899 Other long term (current) drug therapy; J44.1 Chronic obstructive pulmonary disease with (acute) exacerbation; Z20.822 Contact with and (suspected) exposure to COVID-19; R13.10 Dysphagia, unspecified; J18.9 Pneumonia, unspecified organism; Z51.81 Encounter for therapeutic drug level monitoring; J44.9 Chronic obstructive pulmonary disease, unspecified